=== PATIENT | male | born 1950 | race Caucasian/White ===

== ENCOUNTER 2019-07-09 14:00 | Outpatient (CLI) | payer MEDICARE, BC, SELFPAY ==
--- NOTE | 2019-07-09 14:15 | US_ITS ---
WS: [id number] Bilateral renal ultrasound, Clinical Data: urolithiasis Comparison: None. Findings: The right kidney measures 11.6 cm x 5.1 cm x 5.5 cm and the left kidney is 12.2 cm x 6.2 cm x 5.8 cm. There is a right cortical cyst measuring 1.13 x 1.62 x 1.79 cm. and a second one measuring 1.04 x 1. 39 x 1.58 cm. No other cysts are seen. There are small central nonobstructing left renal calculi. The abdominal aorta and inferior vena cava show no vascular abnormalities. The bladder was scanned and was not remarkable. The prostate is enlarged and measures 3.71 x 4.48 x 4 .61 cm. US/US renal BI* [id number] Impression: 1. Nonobstructing central left renal calculi. 2. 2 right renal cysts. 3. Enlarged prostate.
--- NOTE | 2019-07-09 15:15 | XR_ITS ---
WS: [id number] KUB, 07/09/2019 Clinical Data: Urolithiasis Comparison: KUB, 04/18/2019 Findings: There are several calcifications overlying the left kidney, the largest of which is 1.57 cm in the ce ntral portion of the kidney. A triangular calcification measuring 0.6 cm in the region of the right u reteropelvic junction. There are vascular calcifications in the true pelvis. There is a dextroscolios is with degenerative change. The bladder is partly full. There are clips in the right upper quadrant from a cholecystectomy. XR/XR KUB [id number] Impression: 1. Multiple left renal calcifications, the largest of which is 1.57 cm. 2. Triangular calcification in region of right ureteropelvic junction.
== END 2019-07-09 14:01 | disposition home or self-care (01) ==
LOC: US 14:00
PROVIDERS: Family Provider Registered Nurse; PCP Registered Nurse; Visit Provider Urology
DX: N20.9 Urinary calculus, unspecified (principal); N28.89 Other specified disorders of kidney and ureter; Q61.02 Congenital multiple renal cysts; N40.0 Benign prostatic hyperplasia without lower urinary tract symptoms
CPT/HCPCS: 74018; 76770

== ENCOUNTER 2019-07-22 07:36 | Outpatient (CLI) | payer MEDICARE, BC, SELFPAY ==
--- NOTE | 2019-07-22 07:48 | USCV_ITS ---
Ge Dudley Age: 69 Gender: M : 1950 Exam Date: 07/22/2019 07:58 Ordering Phys: Rosita Muro MULTICULTURAL MANAGER Technologist: Misael Lay Exam Location: [facility] [place] Indication: LT LEG PAIN Risk Factors: Previous Vascular Surgery: RIGHT LEFT Waveform Velocity (cm/s) Velocity (cm/s) Waveform Iliac Prox 70.4 Triphasic Iliac Mid 70.4 Triphasic Iliac Distal 63.9 Triphasic FORMING TUBE SELECTOR 60.4 Triphasic SFA Prox 69.7 Triphasic SFA Mid 51.8 Triphasic SFA Dist 58.0 Triphasic POP 27.8 Triphasic FX ARTIST 35.5 Triphasic DPA 32.1 Biphasic ESTHER 1.1 FINDINGS Normal resting ESTHER of 1.1 on the left side CONCLUSIONS No evidence of any significant arterial obstruction, based on the above findings. Dr German Rucker MD [facility] (Electronically Signed) Final Date: 22 July 2019 08:56 S
== END 2019-07-22 07:37 | disposition home or self-care (01) ==
LOC: RAD 07:39
PROVIDERS: Family Provider Registered Nurse; PCP Registered Nurse; Visit Provider Registered Nurse
DX: M79.605 Pain in left leg (principal); R20.0 Anesthesia of skin; R20.2 Paresthesia of skin; I72.3 Aneurysm of iliac artery
CPT/HCPCS: 93926

== ENCOUNTER 2019-11-20 23:10 | Emergency (ER) | payer MEDICARE, BC, SELFPAY ==
[2019-11-20 23:12] VITALS: BP 98/63; PULSE 57; RESP 18; TEMP 36.4; O2SAT 95; BMI 31.3
--- NOTE | 2019-11-20 23:51 | ED_ITS ---
HPI - Epistaxis General: Chief complaint: Epistaxis Stated complaint: nose bleed Time Seen by Provider: 11/20/19 23:47 Source: patient History of Present Illness: HPI Narrative: 69-year-old male states he has had a nosebleed throughout the day that is been intermittent in nature. Bleeding is currently stopped. Is through his left nostril. He is on Coumadin. He denies any worsening or improving factors. He denies any lightheadedness. Denies any injuries. complaint: epistaxis Location: left nostril Onset (ago): hour(s) Duration: intermittent Context: warfarin use Associated symptoms: Deny fever(s), headache(s) or vomiting Review of Systems Const: Denies: fever(s), chills, body aches or change in appetite Eyes: Denies: blurry vision or eye discomfort ENMT: Reports: epistaxis Card: Denies: chest pain Resp: Denies: dyspnea GI: Denies: abdominal pain, nausea, vomiting or diarrhea : Denies: dysuria Musc: Denies: neck pain or back pain Skin/Breast: Denies: rash Neuro: Denies: headache(s) Psych: Denies: depression Ashwin/Lymph: Denies: easy bruising All/Imm: Denies: urticaria PFSH ED PFSH: Medical History (Updated 11/21/19 @ 00:41 by Jose Neal MD) Atrial fibrillation Chest pain Elevated PSA Erectile dysfunction due to diseases classified elsewhere Gout Hepatitis C HTN (hypertension) Microscopic hematuria Sleep apnea Smoker Urolithiasis Surgical History S/P cholecystectomy Family History Father , Age 76 Congestive heart failure Social History Smoking and tobacco status: current every day smoker Alcohol intake: current Alcohol intake frequency: few times a week Marital status: Current occupational status: retired Physical Exam Const: COMMON NORMALS: no acute distress, patient oriented x3 and healthy appearing HENMT: COMMON NORMALS: normocephalic and atraumatic HEAD & SCALP: normocephalic and atraumatic OTHER: Dried blood in left nare with no active bleeding Eye: COMMON NORMALS: Equal, round and reactive pupils present and EOMs intact bilaterally PUPIL: Yes Equal, round and reactive pupils present Neck/C-Spine: COMMON NORMALS: full ROM and supple Chest: COMMONS NORMALS: normal inspection of the chest and normal palpation of entire chest wall Resp: COMMON NORMALS: normal respiratory effort, No retractions, No use of accessory muscles and clear to auscultation bilaterally AUSCULTATION: clear to auscultation bilaterally Cardio: COMMON NORMALS: regular rate, regular rhythm and No murmurs present (Cardio) RATE: regular rate RHYTHM: regular rhythm GI: COMMON NORMALS: Normal to inspection, nondistended, normoactive bowel sounds present, Soft to palpation, non-tender and no masses PALPATION: Yes Soft to palpation Extremity: COMMON NORMALS: normal to inspection and full ROM Neuro: COMMON NORMALS: patient oriented x3, moves all extremities and no focal motor deficits Psych: COMMON NORMALS: mental status grossly normal, Normal thought process present and cooperative THOUGHT PROCESS: Normal thought process present Skin: COMMON NORMALS: no rashes or lesions noted and no wounds GENERAL SKIN EXAM: no rashes or lesions noted Course Vital Signs: Vital signs: Vital Signs Temperature 97.6 F 11/20/19 23:12 Pulse Rate 78 11/21/19 02:37 Respiratory Rate 18 11/21/19 02:37 Blood Pressure 109/69 11/21/19 02:37 Pulse Oximetry 94 11/21/19 02:37 MDM - Epistaxis MDM Narrative: Medical decision making narrative: Patient presents here with epistaxis that is since resolved. Patient was observed here and had no further nosebleeds. Patient was hypotensive he had taken his blood pressure just prior to arrival need states blood pressure was low before he took his blood pressure medicine. This is likely because of hypotension and his blood pressures improved at discharge. Hemoglobin and lactate are normal. I informed patient he needs to monitor his blood pressure closely before taking his meds. Patient is to follow-up with ENT. He is return if worsening. Lab Data: Labs: Lab Results 11/20/19 11/20/19 11/21/19 Range/Units 23:37 23:37 01:54 WBC 11.0 H (4.0-10.0) 10^3/ uL RBC 3.88 L (4.1-5.3) 10^6/u L Hgb 11.8 (11.7-16.6) g/dL Hct 37.5 L (42.0-52.0) % MCV 96.6 H (80-94) fL MCH 30.4 (28.0-34.0) pg MCHC 31.5 (30.0-36.0) g/dL RDW 13.5 (12.1-15.1) % Plt Count 239 (130-400) 10^3/c mm MPV 11.3 H (7.4-10.4) fL Neut % (Auto) 65.2 % Lymph % (Auto) 20.1 % Juab % (Auto) 11.9 % Eos % (Auto) 1.6 % Baso % (Auto) 0.5 % Neut # (Auto) 7.2 (1.8-7.7) 10^3/u L Lymph # (Auto) 2.2 (0.8-4.8) 10^3/u L [place] # (Auto) 1.3 H (0.2-0.9) 10^3/u L Eos # (Auto) 0.2 (0.0-0.8) 10^3/u L Baso # (Auto) 0.1 (0.0-0.1) 10^3/u L Nucleated RBC % (a uto) 0 % Nucleated RBCs # 0.0 /100WBC PT 27.10 H (10.5-13.3) SECO NDS INR 2.41 H (0.8-1.2) Sodium 137 (136-145) mmol/L Potassium 4.3 (3.5-5.1) mmol/L Chloride 105 (98-107) mmol/L Carbon Dioxide 24 (22-29) mmol/L Anion Gap 12.3 (5-19) BUN 31 H (8-23) mg/dL Creatinine 1.5 H (0.7-1.2) mg/dL GFR Calculation 46.3 L (90-130) mL/min Glucose 107 (65-115) mg/dL Calculated Osmolal ity 282 L (285-295) mOsm/k g Lactate (0.5-2.2) mmol/L Calcium 10.1 (8.5-10.5) mg/dL 11/21/19 11/21/19 Range/Units 01:54 01:54 WBC (4.0-10.0) 10^3/ uL RBC (4.1-5.3) 10^6/u L Hgb 10.0 L (11.7-16.6) g/dL Hct 32.2 L (42.0-52.0) % MCV (80-94) fL MCH (28.0-34.0) pg MCHC (30.0-36.0) g/dL RDW (12.1-15.1) % Plt Count (130-400) 10^3/c mm MPV (7.4-10.4) fL Neut % (Auto) % Lymph % (Auto) % Juab % (Auto) % Eos % (Auto) % Baso % (Auto) % Neut # (Auto) (1.8-7.7) 10^3/u L Lymph # (Auto) (0.8-4.8) 10^3/u L Juab # (Auto) (0.2-0.9) 10^3/u L Eos # (Auto) (0.0-0.8) 10^3/u L Baso # (Auto) (0.0-0.1) 10^3/u L Nucleated RBC % (a uto) % Nucleated RBCs # /100WBC PT (10.5-13.3) SECO NDS INR (0.8-1.2) Sodium (136-145) mmol/L Potassium (3.5-5.1) mmol/L Chloride (98-107) mmol/L Carbon Dioxide (22-29) mmol/L Anion Gap (5-19) BUN (8-23) mg/dL Creatinine (0.7-1.2) mg/dL GFR Calculation (90-130) mL/min Glucose (65-115) mg/dL Calculated Osmolal ity (285-295) mOsm/k g Lactate 0.7 (0.5-2.2) mmol/L Calcium (8.5-10.5) mg/dL Discharge Plan Discharge Patient Disposition: Home, Self-Care Clinical Impression: Epistaxis Condition: Stable Prescriptions: No Action aspirin [Aspir-81] 81 mg tablet,delayed release (DR/EC) 81 mg PO DAILY RF: 0 colchicine 0.6 mg tablet 0.6 mg PO DAILY RF: 0 warfarin 10 mg tablet 5 mg PO DAILY RF: 0 lisinopril 40 mg tablet 40 mg PO DAILY RF: 0 metoprolol tartrate 25 mg tablet 25 mg PO BID RF: 0 sildenafil 100 mg tablet 100 mg PO DAILY PRN (Reason: sexual activity) Qty: 20 RF: 12 amlodipine 10 mg tablet See Rx Instructions .ROUTE .COMPLEX Qty: 30 RF: 5 Discharge Orders: Discharge Order (Routine); Ordered 11/21/19 Ordered By: Jose Neal Referrals: Zia Vega MD [Physician] - 1-3 days Rosita Muro FNP [Primary Care Provider] - Discharge Diet: Advance as tolerated Discharge Activity: Resume usual activity Patient Instructions: Epistaxis (ED) Discharge Date/Time: 11/21/19 02:35 Coding Level of Care Code ED Aircraft Launch And Recovery Technician for Radha Fwd Exam Comprehensive
[2019-11-20 23:57] LABS: INR 2.41 (0.8-1.2)
[2019-11-21] MEDS: oxymetazoline 0.05% Nasal Spray 15 mL 2 SPRAY NOSTRIL-B (00:05)
[2019-11-21 00:06] VITALS: BP 85/53; PULSE 50; RESP 18; O2SAT 90
[2019-11-21 00:19] LABS: Basophils # 0.1 10^3/uL (0.0-0.1); Basophils % 0.5 %; Eosinophils # 0.2 10^3/uL (0.0-0.8); Eosinophils % 1.6 %; Hematocrit 37.5 % (42.0-52.0); Hemoglobin 11.8 g/dL (11.7-16.6); Lymphocytes # 2.2 10^3/uL (0.8-4.8); Lymphocytes % 20.1 %; Mean Corpuscular HGB Conc 31.5 g/dL (30.0-36.0); Mean Corpuscular Hemoglobin 30.4 pg (28.0-34.0); Mean Corpuscular Volume 96.6 fL (80-94); Mean Platelet Volume 11.3 fL (7.4-10.4); Monocytes # 1.3 10^3/uL (0.2-0.9); Monocytes % 11.9 %; Neutrophils # 7.2 10^3/uL (1.8-7.7); Neutrophils % 65.2 %; Nucleated Red Blood Cells % 0 %; Platelet Count 239 10^3/cmm (130-400); Red Blood Count 3.88 10^6/uL (4.1-5.3); Red Cell Distribution Width 13.5 % (12.1-15.1)
[2019-11-21] MEDS: sodium chloride 0.9% 1,000 ML 999 ML IV (01:08)
[2019-11-21 01:10] VITALS: BP 68/31; PULSE 50; RESP 18; O2SAT 95
[2019-11-21 01:37] VITALS: BP 98/61; O2SAT 94
[2019-11-21 02:03] VITALS: BP 98/57; PULSE 68; O2SAT 96
[2019-11-21 02:10] LABS: Hematocrit 32.2 % (42.0-52.0)
[2019-11-21 02:21] LABS: Anion Gap 12.3 (5-19); Blood Urea Nitrogen 31 mg/dL (8-23); Calcium 10.1 mg/dL (8.5-10.5); Carbon Dioxide 24 mmol/L (22-29); Chloride 105 mmol/L (98-107); Glomerular Filtration Rate 46.3 mL/min (90-130); Glucose 107 mg/dL (65-115); Lactate (Lactic Acid level) 0.7 mmol/L (0.5-2.2); Osmolality Calculated 282 mOsm/kg (285-295); Potassium 4.3 mmol/L (3.5-5.1); Sodium 137 mmol/L (136-145)
[2019-11-21 02:37] VITALS: BP 109/69; PULSE 78; RESP 18; O2SAT 94
--- NOTE | 2019-11-21 13:21 | DCPLANNER ---
dental manager had message to schedule a follow up appointment for patient with Dr. Vega. dental manager faxed patients records to the office of Dr. Vega. Clinic will call case management manager and patient with appointment information.
--- NOTE | 2019-11-27 15:19 | DCPLANNER ---
Patient did attend appointment scheduled for 11.26.[address] Vega.
== END 2019-11-21 02:35 | disposition home or self-care (01) ==
PROVIDERS: Emergency Provider Emergency Medicine; PCP Registered Nurse
DX: R04.0 Epistaxis (principal); Z79.82 Long term (current) use of aspirin; I48.91 Unspecified atrial fibrillation; I10 Essential (primary) hypertension; Z86.19 Personal history of other infectious and parasitic diseases; F17.210 Nicotine dependence, cigarettes, uncomplicated
CPT/HCPCS: 12345; 36415; 80048; 83605; 85014; 85018; 85025; 85610; 96360; 96361; 99283; J7030

== ENCOUNTER → 2020-04-15 14:39 | Outpatient (BNVA) | payer MEDICARE, BC, SELFPAY | PROVIDERS: PCP Registered Nurse; Referring Provider Registered Nurse; Visit Provider Internal Medicine | DX: E21.3 Hyperparathyroidism, unspecified (principal); I10 Essential (primary) hypertension; I48.91 Unspecified atrial fibrillation; N20.2 Calculus of kidney with calculus of ureter | CPT/HCPCS: 99204 ==

== ENCOUNTER 2020-05-18 12:23 | Outpatient (CLI) | payer MEDICARE, BC, SELFPAY ==
--- NOTE | 2020-05-18 12:34 | MR_ITS ---
WS: [id number] MRI LUMBAR SPINE NONCONTRAST HISTORY: CHRONIC bilateral LBP SCIATICA. COMPARISON: CT 01/16/2019 TECHNIQUE: Sagittal and axial multisequence imaging is submitted. Survey imaging of the entire spine demonstrates significant degenerative changes in the cervical spin e with stenosis at the C4 level. Increased T2 signal within the central thoracic cord at the T7 level extends over length of 12 mm. RIGHT convex scoliosis lumbar spine. No marrow edema or acute fracture. Disc spaces are narrowed with osteophytes and disc bulging throughout the lumbar spine. Conus terminates normally at L1-2 disc level. T12-L1: Diffuse annular disc bulging and facet and ligamentum flavum arthritis. RIGHT subarticular di sc protrusion with mild lobulation causing very mild encroachment on the RIGHT thecal sac. L1-L2: Diffuse asymmetric disc bulging and osteophytic ridging. Moderate ligamentum flavum disease an d facet arthritis. Significant disc osteophyte complex extending into the LEFT lateral recess and for amen. Severe LEFT foraminal stenosis and moderate on the RIGHT. L2-L3: Diffuse annular disc bulging with facet and ligamentum flavum hypertrophy. Moderate bilateral foraminal stenosis. Small disc protrusion into the LEFT lateral recess. L3-L4: Diffuse annular disc bulging with facet and ligamentum flavum arthritis. Moderate central and bilateral foraminal stenosis. L4-L5: Diffuse annular disc bulging and osteophytic ridging. Mild facet and ligamentum flavum hypertr ophy. LEFT inferior lateral recess disc protrusion contacting the L5 nerve root. Moderate bilateral f oraminal stenosis, RIGHT greater than LEFT. Mild central stenosis. L5-S1: Mild annular disc bulging with facet and ligamentum flavum arthritis. Severe RIGHT foraminal s tenosis due to combination of disc disease and facet disease. Complete effacement of fat. Moderate na rrowing on the LEFT. Moderate to severe LEFT hydrocele nephrosis. Ureter is dilated into the pelvis measuring up to 9 mm. This has been previously described on 01/16/2019 due to stone in the distal ureter. RIGHT renal cysts. Ectatic abdominal aorta. MR/MR lumbar spine wo con* [id number] IMPRESSION: 1. Moderate to severe multifocal areas of foraminal and central stenosis as ab ove. 2. Severe RIGHT foraminal stenosis at L5-S1 with moderate on the LEFT. 3. Severe LEFT foraminal stenosis and moderate on the RIGHT at L1-2. 4. Moderate bilateral foraminal stenosis at L2-3 with a disc protrusion extend ing into the LEFT lateral recess. 5. Moderate central and bilateral foraminal stenosis at L3-4. 6. Mild central stenosis with moderate bilateral foraminal stenosis at L4-5. 7. Chronic LEFT hydroureteronephrosis. 8. 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 Recommend follow-up thoracic MRI with and without contrast for evaluation.
--- NOTE | 2020-05-18 12:34 | MR_ITS ---
WS: [id number] MRI CERVICAL SPINE HISTORY: CHRONIC NECK PAIN COMPARISON: No similar studies. Prior cervical spine CT 05/09/2016. Mild curvature the cervical spine. Advanced degenerative changes throughout the cervical vertebrae. D isc space narrowing with osteophytes and disc disease. Marrow edema and C4 and C5. No fractures. Signal within the cervical cord is normal. Visualized posterior fossa is unremarkable. Craniocervical junction, C1 and C2 relationship, odontoid process and soft tissues are normal. C2-C3: Mild osteophytic ridging no stenosis. C3-C4: Moderate annular disc bulging and osteophytic ridging. Effacement of the ventral CSF. Mild seven tral with moderate RIGHT and mild LEFT foraminal stenosis due to disc osteophyte disease. C4-C5: Diffuse annular disc bulging and osteophytic ridging. Moderate central and RIGHT foraminal noah nosis. Mild on the LEFT. C5-C6: Diffuse annular disc bulging and osteophytic ridging. Severe LEFT foraminal stenosis. C6-C7: Diffuse annular disc bulging and osteophytic ridging. Extremity nerve roots are being displace d posteriorly on the LEFT. Moderate central with severe LEFT foraminal and moderate RIGHT foraminal s tenosis. C7-T1: Mild disc bulging. No stenosis. Paraspinal soft tissue are normal. MR/MR cervical spin wo con* [id number] IMPRESSION: 1. Severe degenerative spondylitic changes throughout the cervical spine. Adva nced osteophytosis and disc space narrowing and multilevel stenoses. 2. Severe LEFT foraminal stenosis at C5-6. 3. Moderate central and RIGHT foraminal stenosis at C4-5. 4. Moderate central with severe LEFT and moderate RIGHT foraminal stenosis at C6-7. 5. Moderate RIGHT and mild LEFT foraminal stenosis at C3-4.
== END 2020-05-18 12:24 | disposition home or self-care (01) ==
LOC: RADSHAW 12:26
PROVIDERS: PCP Registered Nurse; Visit Provider Registered Nurse
DX: M54.42 Lumbago with sciatica, left side (principal); M54.41 Lumbago with sciatica, right side; R93.7 Abnormal findings on diagnostic imaging of other parts of musculoskeletal system; M47.26 Other spondylosis with radiculopathy, lumbar region; M48.061 Spinal stenosis, lumbar region without neurogenic claudication; M48.07 Spinal stenosis, lumbosacral region; M51.26 Other intervertebral disc displacement, lumbar region; N13.30 Unspecified hydronephrosis; M48.02 Spinal stenosis, cervical region
CPT/HCPCS: 72141; 72148

== ENCOUNTER → 2020-06-19 08:25 | Outpatient (BNVA) | payer MEDICARE, BC, SELFPAY | PROVIDERS: PCP Registered Nurse; Visit Provider Internal Medicine | DX: E21.3 Hyperparathyroidism, unspecified (principal); I10 Essential (primary) hypertension; I48.91 Unspecified atrial fibrillation; N20.2 Calculus of kidney with calculus of ureter | CPT/HCPCS: 99214 ==

== ENCOUNTER 2020-06-23 13:32 | Outpatient (CLI) | payer MEDICARE, BC, SELFPAY ==
--- NOTE | 2020-06-23 16:15 | XR_ITS ---
WS: [id number] DEXA (DUAL ENERGY X-RAY ABSORPTIOMETRY) Bone mineral density was performed using a HuoBi machine. HISTORY: age above 69,hyperparathyroidism,r/p osteoporosis COMPARISON: None available. Lumbar spine BMD (L1-L4): 1.416 g/cm2 T score: 1.6 Z score: 1.7 Total hip BMD: Left: 0.881 g/cm2. T score: -1.5 Z score: -1.1 Right: 0.954 g/cm2. T score: -1.0 Z score: -0.6 10 year probability of a major osteoporotic fracture is 6%. XR/XR DEXA axial skeleton* [id number] IMPRESSION: OSTEOPENIA. Patient is at increased risk for fracture.
== END 2020-06-23 13:33 | disposition home or self-care (01) ==
LOC: RADWPI 13:36
PROVIDERS: PCP Registered Nurse; Visit Provider Internal Medicine
DX: E21.3 Hyperparathyroidism, unspecified (principal); M85.80 Other specified disorders of bone density and structure, unspecified site
CPT/HCPCS: 77080

== ENCOUNTER 2020-06-26 08:45 | Outpatient (CLI) | payer MEDICARE, BC, SELFPAY ==
--- NOTE | 2020-06-26 08:54 | NM_ITS ---
WS: [id number] NUCLEAR MEDICINE PARATHYROID SESTAMIBI INDICATION: Hypercalcemia TECHNIQUE: 19.1 mCi technetium 99m FINDINGS: Normal right thyroid lobe uptake. Cold defect in the left lower thyroid lobe. Normal thyroi d washout on the delayed images. No retained radiotracer to suggest parathyroid adenoma. NM/NM parathyroid [id number] IMPRESSION: 1. No evidence of parathyroid adenoma. 2. Photopenic defect in the left lower thyroid lobe. Recommend thyroid ultraso und to evaluate for thyroid nodule in this location.
== END 2020-06-26 08:46 | disposition home or self-care (01) ==
LOC: RAD 08:47
PROVIDERS: PCP Registered Nurse; Visit Provider Internal Medicine
DX: E21.3 Hyperparathyroidism, unspecified (principal)
CPT/HCPCS: 78070; A9500

== ENCOUNTER 2020-06-29 07:52 | Outpatient (CLI) | payer MEDICARE, BC, SELFPAY ==
--- NOTE | 2020-06-29 08:00 | XRR_ITS ---
PROCEDURE INFORMATION: Exam: XR Abdomen, 1 View Exam date and time: 06/29/2020 8:03 AM Age: 70 years old Clinical indication: Condition or disease; Other: Urolithiasis; Prior surgery; Surgery type: Gb TECHNIQUE: Imaging protocol: XR of the abdomen. Views: Frontal supine view of the abdomen. 1 View. COMPARISON: CA XR KUB [id number] 07/09/2019 2:12 PM Findings: Degenerative change of the spine. Surgical clips right upper quadrant. Scattered bowel gas. Scattered calcifications in the pelvis probably related to vascular origin and phleboliths. Similar appearance of irregular calcification overlying the area of upper medial margin of right kidney. There are similar prominent sized and smaller calcifications which overlie the left kidney. Probable subtle calcifications within the lower right kidney are partially obscured by colonic fecal debris. Scattered bowel gas and moderate colonic fecal debris without extreme gaseous distension. XR/XR KUB [id number] IMPRESSION: Persistent suspected bilateral intrarenal calculi largest on the left.
== END 2020-06-29 07:53 | disposition home or self-care (01) ==
LOC: RAD 08:00
PROVIDERS: PCP Registered Nurse; Visit Provider Urology
DX: N20.9 Urinary calculus, unspecified (principal); R97.20 Elevated prostate specific antigen [PSA]
CPT/HCPCS: 74018; 81003; 84153; 87086

== ENCOUNTER → 2020-07-02 08:35 | Outpatient (BNVA) | payer MEDICARE, BC, SELFPAY | PROVIDERS: PCP Registered Nurse; Visit Provider Surgery | DX: Z20.828 Contact with and (suspected) exposure to other viral communicable diseases (principal); Z86.010 Personal history of colon polyps | CPT/HCPCS: 87635 ==

== ENCOUNTER → 2020-07-31 11:07 | Outpatient (BNVA) | payer MEDICARE, BC, SELFPAY | PROVIDERS: PCP Registered Nurse; Visit Provider Urology | DX: N30.01 Acute cystitis with hematuria (principal); C67.9 Malignant neoplasm of bladder, unspecified; N20.2 Calculus of kidney with calculus of ureter; N40.1 Benign prostatic hyperplasia with lower urinary tract symptoms | CPT/HCPCS: 81003; 82365; 88300 ==

== ENCOUNTER → 2020-08-12 09:38 | Outpatient (BNVA) | payer MEDICARE, BC, SELFPAY | PROVIDERS: PCP Registered Nurse; Visit Provider Internal Medicine | DX: E04.1 Nontoxic single thyroid nodule (principal); E21.3 Hyperparathyroidism, unspecified; I10 Essential (primary) hypertension; I48.91 Unspecified atrial fibrillation; N20.2 Calculus of kidney with calculus of ureter | CPT/HCPCS: 99215 ==

== ENCOUNTER → 2020-08-21 13:58 | Outpatient (BNVA) | payer MEDICARE, BC, SELFPAY | PROVIDERS: PCP Registered Nurse; Visit Provider Surgery | DX: Z86.010 Personal history of colon polyps (principal); Z03.818 Encounter for observation for suspected exposure to other biological agents ruled out; Z20.822 Contact with and (suspected) exposure to COVID-19 | CPT/HCPCS: 87635 ==

== ENCOUNTER 2020-08-26 07:35 | Day surgery (SDC) | payer MEDICARE, BC, SELFPAY ==
[2020-08-24 13:13] VITALS: BMI 31.3
--- NOTE | 2020-08-26 07:47 | ANES.PREANE2 ---
Pre-Anesthetic Assessment Pre-Anesthetic Assessment: Height/Weight: Height 1.7 m Weight 90.718 kg Preop Diagnosis: blood in stool Proposed Procedure: Operation Date: 08/26/20 09:15 Proposed Procedures p Colonoscopy 29054 z86.010(Not Applicable) - Jaren Kumar MD Familial anesthetic complications: none Was Beta Rita taken within 24 hours: Yes Was Clonidine taken within 24 hours: N/A Last intake: > 8 hrs Social: Social History: Tobacco Exam: Pre-Anes Outpt Exam: alert, oriented x 3, clear to auscultation bilaterally and regular rate & rhythm Airway: Cervical ROM: WNL MP: 4 Dentition: Chipped (broken off, in front) Additional comments: full mari Pulmonary: Pulmonary: Sleep apnea CV/HEM: CV/HEM: Afib and HTN Anesthetic Plan: ASA status: 3 Anesthesia: MAC Risk of > 500 ml blood loss (7ml/kg in children): No PFSH Anesthesia PFSH: Medical History Acute cystitis with hematuria Asymptomatic microscopic hematuria Atrial fibrillation BPH loc w urin obs/LUTS BPH w/o urinary obs/LUTS Chest pain Elevated PSA Erectile dysfunction due to diseases classified elsewhere Gout Gross hematuria Hepatitis C HTN (hypertension) Sleep apnea Smoker Urolithiasis Surgical History S/P cholecystectomy S/P ureteral stent placement Status post laser lithotripsy of ureteral calculus Family History Father , Age 76 Congestive heart failure Mother Osteoporosis Social History Smoking and tobacco status: current every day smoker Alcohol intake: current Alcohol intake frequency: few times a week Marital status: Current occupational status: retired Data Anesthesia Cardiac Studies: No Data to Display
[2020-08-26 08:20] VITALS: BP 154/102; PULSE 58; RESP 18; TEMP 36.2; O2SAT 97
[2020-08-26] MEDS: sodium chloride 0.9% 1,000 ML 30 ML IV (08:30)
--- NOTE | 2020-08-26 09:23 | W.PM.OPSFHP ---
Same Day Surgery H&P Indication for Procedure/HPI DATE OF PROCEDURE: August 26, 2020 CHIEF COMPLAINT/INDICATIONFOR SURGICAL PROCEDURE: History of colon polyps PREOP DIAGNOSIS: History of colon polyps PLANNED PROCEDRUE: Operation Date: 08/26/20 09:15 Proposed Procedures p Colonoscopy 14226 z86.010(Not Applicable) - Jaren Kumar MD History of present illness: This is a pleasant 70 years old gentleman gives history of colon polyps as he did have a previous colonoscopy at the [facility] back in 2017. Patient was referred to me for surveillance colonoscopy as he denies bleeding per rectum or history of colon cancer also no history of weight loss. Interim history 08/26/2020 ROS All systems have been reviewed negative except as per the above or per problem list. Medications/Allergies* Home Medications Medication Instructions Recorded Confirmed Type lisinopril 40 mg tablet 40 mg PO DAILY 12/09/19 08/26/20 History aspirin 81 mg tablet,delayed 81 mg PO DAILY 04/15/20 08/26/20 History release prednisone 10 mg tablet 10 mg PO .PRN tab 04/15/20 08/26/20 History warfarin 1 mg tablet 10 mg PO DAILY tab 06/19/20 08/24/20 History hydrochlorothiazide 25 mg tablet 12.5 mg PO DAILY PRN tab 07/31/20 08/26/20 History metoprolol tartrate 25 mg tablet 25 mg PO DAILY tab 08/12/20 08/26/20 History Allergies/Adverse Reactions Allergy/AdvReac Type Severity Reaction Status Date / Time No Known Allergies Allergy Verified 08/26/20 09:26 Current Medications: Generic Name Dose Route Start Last Admin Trade Name Freq PRN Reason Stop Dose Admin Sodium Chloride 1,000 mls @ 30 mls/hr 08/26/20 08:30 08/26/20 08:30 Sodium Chloride 0.9% IV 30 mls/hr .Q24H CLARENCE Administration Pertinent History/Comorbid Conditions* Medical History (Updated 08/12/20 @ 11:15 by Uday Varela MD) Acute cystitis with hematuria Asymptomatic microscopic hematuria Atrial fibrillation BPH loc w urin obs/LUTS BPH w/o urinary obs/LUTS Chest pain Elevated PSA Erectile dysfunction due to diseases classified elsewhere Gout Gross hematuria Hepatitis C HTN (hypertension) Sleep apnea Smoker Urolithiasis Surgical History (Updated 06/29/20 @ 09:11 by Aiden Mercado MD) S/P cholecystectomy S/P ureteral stent placement Status post laser lithotripsy of ureteral calculus Family History (Updated 06/19/20 @ 08:44 by Wojciech Benito LPN) Father, Age 76 Mother Osteoporosis Mother Congestive heart failure Father Social History Smoking and tobacco status: current every day smoker Alcohol intake: current Alcohol intake frequency: few times a week Marital status: Current occupational status: retired Pertinent Exam Findings oriented x 3, clear to auscultation bilaterally, regular rate & rhythm and procedure specific exam findings (Abdominal examination nontender nondistended soft) Recommendations Surgery/Procedure today (Colonoscopy post biopsy and possible polypectomy for surveillance purposes) Other Plans: Plan of care; After thorough history and physical examination and reviewing the chart, plan to perform surveillance colonoscopy. I discussed with the patient in details the risks,benefits,alternatives and indications.The risk of aspiration, bleeding, soft tissue injury, perforation of the colon and other potential concomitant complications were explained to the patient in details,also the potential need for Laproscoy/Laparotomy to repair any related complications including but not limited to colectomy and or Closotomy.The patient understood this well and did agree to proceed. Rationale was carefully and clearly discussed with the patient.Appropriate informed consent have been reviewed and signed All questions have been answered and all concerns have been addressed to patient's satisfaction. Verbal and written Instructions were given to the patient for colonoscopy prep Coding Level of Care Code Acute Pharmacologist for Radha Jensen
[2020-08-26 10:56] VITALS: BP 116/69; PULSE 62; RESP 16; TEMP 36.7; O2SAT 97
--- NOTE | 2020-08-26 10:57 | ANE.PACU2 ---
Inpatient post-anesthesia follow up: Airway intact: Yes Vital signs: Temperature 97.2 F Pulse Rate 58 Respiratory Rate 18 Blood Pressure 154/102 Pulse Oximetry 97 Oxygen Delivery Me thod Room Air Oxygen Flow Rate Fraction of Inspir ed Oxygen Hydration adequate: Yes Nausea and vomiting: No Pain level: 1 Mental status: Baseline
[2020-08-26 11:10] VITALS: BP 112/81; PULSE 61; RESP 16; O2SAT 97
== END 2020-08-26 11:39 | disposition home or self-care (01) ==
PROVIDERS: PCP Registered Nurse; Visit Provider Surgery
PROC: 0DJD8ZZ Inspection of Lower Intestinal Tract, Via Natural or Artificial Opening Endoscopic (ICD-10-PCS; CPT 45378; principal; 2020-08-26 09:15)
DX: K57.30 Diverticulosis of large intestine without perforation or abscess without bleeding (principal); Z86.010 Personal history of colon polyps; Z79.82 Long term (current) use of aspirin; Z79.52 Long term (current) use of systemic steroids; Z79.01 Long term (current) use of anticoagulants; I48.91 Unspecified atrial fibrillation; N40.1 Benign prostatic hyperplasia with lower urinary tract symptoms; N13.8 Other obstructive and reflux uropathy; I10 Essential (primary) hypertension; G47.30 Sleep apnea, unspecified; F17.210 Nicotine dependence, cigarettes, uncomplicated
CPT/HCPCS: 45378; 96360; 96361; J2704; J7030

== ENCOUNTER 2020-09-01 13:53 | Outpatient (CLI) | payer MEDICARE, BC, SELFPAY ==
--- NOTE | 2020-09-01 14:15 | US_ITS ---
WS: [id number] ULTRASOUND THYROID TECHNIQUE: Ultrasound of the thyroid. CLINICAL INFORMATION: defect seen in the thyroid on sestamibi scan, eval for nodul COMPARISON: Parathyroid nuclear medicine study June 26, 2020 FINDINGS: Thyroid: Right and left thyroid lobes are normal in size and echotexture. No thyroid nodules are pres ent. No left-sided nodules to correspond to the nuclear medicine findings. Right thyroid lobe: 3.2 cm x 1.6 cm x 1.7 cm Left thyroid lobe: 2.4 cm x 1.5 cm x 1.2 cm. Isthmus: 0.3 mm. Cervical lymphadenopathy: None. US/US thyroid [id number] IMPRESSION: Normal thyroid ultrasound examination.
== END 2020-09-01 13:54 | disposition home or self-care (01) ==
LOC: US 13:54
PROVIDERS: PCP Registered Nurse; Visit Provider Internal Medicine
DX: E04.1 Nontoxic single thyroid nodule
CPT/HCPCS: 76536

== ENCOUNTER → 2021-01-26 14:41 | Outpatient (BNVA) | payer MEDICARE, BC, SELFPAY | PROVIDERS: PCP Registered Nurse; Referring Provider Registered Nurse; Visit Provider Orthopaedic Surgery | DX: M54.9 Dorsalgia, unspecified (principal); M54.2 Cervicalgia; M47.816 Spondylosis without myelopathy or radiculopathy, lumbar region | CPT/HCPCS: 72050; 72110 ==

== ENCOUNTER → 2021-01-28 10:17 | Outpatient (BNVA) | payer MEDICARE, BC, SELFPAY | PROVIDERS: PCP Registered Nurse; Referring Provider Orthopaedic Surgery; Visit Provider Anesthesiology Pain Medicine | DX: Z02.89 Encounter for other administrative examinations (principal); M48.062 Spinal stenosis, lumbar region with neurogenic claudication; M50.90 Cervical disc disorder, unspecified, unspecified cervical region; F17.210 Nicotine dependence, cigarettes, uncomplicated | CPT/HCPCS: 99205 ==

== ENCOUNTER → 2021-01-29 12:10 | Outpatient (BNVA) | payer MEDICARE, BC, SELFPAY | PROVIDERS: PCP Registered Nurse; Visit Provider Anesthesiology Pain Medicine | DX: M54.16 Radiculopathy, lumbar region (principal); M48.062 Spinal stenosis, lumbar region with neurogenic claudication | CPT/HCPCS: 64483; 64484; J1040; J3490 ==

== ENCOUNTER → 2021-02-15 13:01 | Outpatient (BNVA) | payer MEDICARE, BC, SELFPAY | PROVIDERS: PCP Registered Nurse; Visit Provider Anesthesiology Pain Medicine | DX: G89.29 Other chronic pain (principal); M50.90 Cervical disc disorder, unspecified, unspecified cervical region; Z79.01 Long term (current) use of anticoagulants; F17.210 Nicotine dependence, cigarettes, uncomplicated | CPT/HCPCS: 62321; 85610; J1100 ==

== ENCOUNTER → 2021-02-16 08:10 | Outpatient (BNVA) | payer MEDICARE, BC, SELFPAY | PROVIDERS: PCP Registered Nurse; Visit Provider Anesthesiology Pain Medicine | DX: Z79.01 Long term (current) use of anticoagulants (principal); G89.29 Other chronic pain; M50.90 Cervical disc disorder, unspecified, unspecified cervical region; F17.210 Nicotine dependence, cigarettes, uncomplicated | CPT/HCPCS: 85610 ==

== ENCOUNTER → 2021-03-01 10:02 | Outpatient (BNVA) | payer MEDICARE, BC, SELFPAY | PROVIDERS: PCP Registered Nurse; Visit Provider Anesthesiology Pain Medicine | DX: M50.90 Cervical disc disorder, unspecified, unspecified cervical region (principal); M48.062 Spinal stenosis, lumbar region with neurogenic claudication; F17.210 Nicotine dependence, cigarettes, uncomplicated | CPT/HCPCS: 99214 ==

== ENCOUNTER → 2021-03-11 08:14 | Outpatient (BNVA) | payer MEDICARE, BC, SELFPAY | PROVIDERS: PCP Registered Nurse; Visit Provider Physician Assistant | DX: M50.90 Cervical disc disorder, unspecified, unspecified cervical region (principal) | CPT/HCPCS: 72050 ==

== ENCOUNTER → 2021-03-12 13:40 | Outpatient (BNVA) | payer MEDICARE, BC, SELFPAY | PROVIDERS: PCP Registered Nurse; Visit Provider Anesthesiology Pain Medicine | DX: M47.816 Spondylosis without myelopathy or radiculopathy, lumbar region (principal); M48.062 Spinal stenosis, lumbar region with neurogenic claudication | CPT/HCPCS: 64493; 64494; 64495; J3490 ==

== ENCOUNTER 2021-03-24 14:17 | Outpatient (CLI) | payer MEDICARE, BC, SELFPAY ==
--- NOTE | 2021-03-24 14:00 | XR_ITS ---
WS: [id number] Exam: XR KUB [id number] Date/Time of Exam: 03/24/2021 2:00 PM Reason For Exam: UROLITHIASIS Comparison 06/29/2020. There are several large calcification superimposing left kidney suggesting prominent renal stones. Nu merous small calcifications are also superimposing the right kidney and are also likely stones. No nicky wel obstruction or free air. No sign of organ enlargement. Multiple vascular calcifications in the pe lvis. Moderate degenerative change of the lumbar spine with mild dextroscoliosis. XR/XR KUB [id number] IMPRESSION: 1. Multiple calcifications superimpose both kidneys most likely renal calculi. 2. No acute abdominal process identified.
== END 2021-03-24 14:18 | disposition home or self-care (01) ==
LOC: RAD 14:20
PROVIDERS: PCP Registered Nurse; Visit Provider Urology
DX: N20.2 Calculus of kidney with calculus of ureter (principal); N30.01 Acute cystitis with hematuria
CPT/HCPCS: 74018; 81003; 87086

== ENCOUNTER → 2021-03-25 10:46 | Outpatient (BNVA) | payer MEDICARE, BC, SELFPAY | PROVIDERS: PCP Registered Nurse; Visit Provider Anesthesiology Pain Medicine | DX: M48.062 Spinal stenosis, lumbar region with neurogenic claudication (principal); M50.90 Cervical disc disorder, unspecified, unspecified cervical region; M79.604 Pain in right leg; M79.605 Pain in left leg | CPT/HCPCS: 99214 ==

== ENCOUNTER → 2021-04-08 14:23 | Outpatient (BNVA) | payer MEDICARE, BC, SELFPAY | PROVIDERS: PCP Registered Nurse; Visit Provider Anesthesiology Pain Medicine | DX: M47.816 Spondylosis without myelopathy or radiculopathy, lumbar region (principal); M48.062 Spinal stenosis, lumbar region with neurogenic claudication; M54.16 Radiculopathy, lumbar region | CPT/HCPCS: 64635; 64636; J1030 ==

== ENCOUNTER 2021-07-16 10:50 | Emergency (ER) | payer MEDICARE, BC, SELFPAY ==
--- NOTE | 2021-07-16 11:04 | XR_ITS ---
WS: [id number] Right knee, 3 views, 07/16/2021 Clinical Data: fall Comparison: Right knee, 05/09/2016. Findings: No fractures or dislocations are seen. Chondral cartilage calcification is noted in the medial and la teral joint compartments. There is a large prepatellar and suprapatellar bursal swelling. Vascular ca lcification is present. The patella is intact. The soft tissues are unremarkable. XR/XR knee RT 3V* [id number] Impression: 1. Negative for fracture or dislocation. 2. Soft tissue swelling anterior to the patella and in the suprapatellar bursa. 3. Chondral calcification in the medial lateral joint compartments. Kellgren-Irineo Classification: grade 1 (doubtful): doubtful joint space narr owing and possible osteophytic lipping
[2021-07-16 11:14] VITALS: BP 121/75; PULSE 74; RESP 20; TEMP 36.7; O2SAT 99; BMI 32.3
--- NOTE | 2021-07-16 11:24 | ED_ITS ---
HPI - Extremity Problem General: Chief complaint: Extremity Injury, Lower Stated complaint: Right knee pain; fall Time Seen by Provider: 07/16/21 11:10 History of Present Illness: Patient presents with right knee pain from a fall that was sustained on July 04. Complaint: joint pain Onset (ago): week(s) Location: lower extremity Associated symptoms: Deny chest pain, fever(s) or rash Review of Systems Narrative: Patient is on Coumadin. Const: Denies: fever(s), chills or body aches Eyes: Denies: eye discomfort ENMT: Denies: throat pain Card: Denies: chest pain Resp: Denies: dyspnea GI: Denies: abdominal pain, nausea or vomiting Musc: Reports: joint pain (Right knee, occurred from a fall on July 04. Hurts to bear weight.) Skin/Breast: Denies: rash Neuro: Denies: headache(s) Psych: Denies: depression or suicidal ideation PFSH ED PFSH: Medical History Acute cystitis with hematuria Asymptomatic microscopic hematuria Atrial fibrillation BPH loc w urin obs/LUTS BPH w/o urinary obs/LUTS Chest pain Diverticulosis Elevated PSA Erectile dysfunction due to diseases classified elsewhere Gout Gross hematuria Hepatitis C HTN (hypertension) Sleep apnea Smoker Urolithiasis Surgical History S/P cholecystectomy S/P ureteral stent placement Status post laser lithotripsy of ureteral calculus Family History Father , Age 76 Congestive heart failure Mother Osteoporosis Social History Alcohol intake: current Alcohol intake frequency: few times a week Marital status: Current occupational status: retired History of recent travel: No Physical Exam Const: COMMON NORMALS: no acute distress, patient oriented x3 and alert HENMT: COMMON NORMALS: normocephalic HEAD & SCALP: normocephalic Eye: COMMON NORMALS: EOMs intact bilaterally Neck/C-Spine: COMMON NORMALS: no JVD Resp: COMMON NORMALS: normal respiratory effort and No use of accessory muscles Cardio: COMMON NORMALS: no JVD GI: INSPECTION: Yes normal to inspection Extremity: RIGHT LOWER EXTREMITY: Yes knee joint (Pain with range of motion.) Right knee: Yes palpation (Fluid in about the knee) and Yes other (Bruising noted.) Neuro: COMMON NORMALS: patient oriented x3 SENSORIUM/ORIENTATION: Yes alert Psych: COMMON NORMALS: mental status grossly normal Skin: COMMON NORMALS: no rashes or lesions noted GENERAL SKIN EXAM: no rashes or lesions noted Course Vital Signs: Vital signs: Vital Signs Temperature 98.1 F 07/16/21 11:14 Pulse Rate 74 07/16/21 11:14 Respiratory Rate 20 H 07/16/21 11:14 Blood Pressure 121/75 07/16/21 11:14 Pulse Oximetry 99 07/16/21 11:14 MDM - Extremity (Nontraumatic) Medical Decision Making Patient has right knee injury occurred on 07/04/2021. Patient has had bruising and pain to the knee. Patient is on Coumadin. Patient is knee as well more last couple days. Exam shows bruising old from mid thigh down to mid tibial area. Patient has significant fluid on the knee. X-ray shows soft tissue swelling anterior to the patella into the suprapatellar bursa. Discussed the case with Dr. Ivy, he recommended follow-up with orthopedic for possible drainage and treatment. Patient was placed on walker which she has at home. Also has a knee immobilizer. Patient was prescribed medications and showcase maker was contacted. Lab Data Radiology Impressions Knee X-Ray 07/16/21 11:04 Impression: 1. Negative for fracture or dislocation. 2. Soft tissue swelling anterior to the patella and in the suprapatellar bursa. 3. Chondral calcification in the medial lateral joint compartments. Kellgren-Irineo Classification: grade 1 (doubtful): doubtful joint space narrowing and possible osteophytic lipping Discharge Plan Discharge Patient Disposition: Home Clinical Impression: Acute knee pain, Bursitis of right patella Condition: Stable Prescriptions: New hydrocodone-acetaminophen 5-325 mg tablet 1 tab PO TID PRN (Reason: pain) Qty: 14 0RF cephalexin 500 mg capsule 500 mg PO Q8H 7 Days Qty: 21 0RF No Action aspirin [Adult Aspirin Regimen] 81 mg tablet,delayed release (DR/EC) 81 mg PO DAILY 0RF prednisone 10 mg tablet 10 mg PO .PRN 0RF hydrochlorothiazide 25 mg tablet 12.5 mg PO DAILY PRN (Reason: Edema) 0RF tamsulosin 0.4 mg capsule 0.4 mg PO QDAY Qty: 30 12RF lisinopril 40 mg tablet 40 mg PO DAILY 0RF Label Comments: Patient has been taking PRN warfarin 1 mg tablet 10 mg PO DAILY 0RF metoprolol tartrate 25 mg tablet 25 mg PO DAILY 0RF Label Comments: Patient has been taking PRN gabapentin 300 mg capsule 300 mg PO TID Qty: 90 0RF Discharge Orders: Discharge ED (Routine); Ordered 07/16/21 Ordered By: Mayank Harkins Referrals: Rosita Muro FNP [Primary Care Provider] - Discharge Diet: Usual diet Discharge Activity: Increase activity as tolerated Activity Restrictions/Additional Instructions: Follow-up with medical provider as directed. Take medications as prescribed. Return to the ER or your medical provider if condition worsens. Please read and understand discharge instructions. If any questions ask please. Case management will contact you with an appointment for orthopedic clinic. 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
--- NOTE | 2021-07-19 10:04 | DCPLANNER ---
Addendum entered by Nadeen Nichols 08/20/21 12:03: Patient had a follow up appointment scheduled for 08.02.21 with ortho - patient did attend appointment. Addendum entered by Nadeen Nichols 07/20/21 07:24: Patient has a followup appointment scheduled for Monday, August 02, 2021 at 11:[address] Thomas. Clinic will call patient with appointment information. Original Note: biodiesel product manager had message to schedule a follow up appointment for patient with ortho. biodiesel product manager called the ortho clinic, spoke with Linette, gave clinic patients information. biodiesel product manager was told that patients information would be printed and reviewed. Clinic will call patient with appointment information.
== END 2021-07-16 12:08 | disposition home or self-care (01) ==
PROVIDERS: Emergency Provider Nurse Practitioner Family; PCP Registered Nurse
DX: M70.51 Other bursitis of knee, right knee (principal); Z79.82 Long term (current) use of aspirin; Z79.01 Long term (current) use of anticoagulants; Z86.19 Personal history of other infectious and parasitic diseases; I10 Essential (primary) hypertension
CPT/HCPCS: 73562; 99282

== ENCOUNTER → 2021-08-02 11:05 | Outpatient (BNVA) | payer MEDICARE, BC, SELFPAY | PROVIDERS: PCP Registered Nurse; Referring Provider Nurse Practitioner Family; Visit Provider Specialist | DX: M25.561 Pain in right knee (principal) | CPT/HCPCS: 73560; 73565 ==

== ENCOUNTER 2021-08-02 13:38 | Outpatient (CLI) | payer MEDICARE, BC, SELFPAY | END 2021-08-02 13:39 | disposition home or self-care (01) | LOC: SPT 13:51 | PROVIDERS: PCP Registered Nurse; Visit Provider Specialist | DX: Z46.89 Encounter for fitting and adjustment of other specified devices (principal); M25.561 Pain in right knee; S89.91XD Unspecified injury of right lower leg, subsequent encounter; X58.XXXD Exposure to other specified factors, subsequent encounter | CPT/HCPCS: 97760; L1832 ==

== ENCOUNTER 2021-09-06 07:35 | Outpatient (CLI) | payer MEDICARE, BC, SELFPAY ==
--- NOTE | 2021-09-06 08:00 | MR_ITS ---
WS: [id number] MRI RIGHT KNEE NONCONTRAST TECHNIQUE: Axial PD, coronal PD fat sat, coronal PD, sagittal PD, and sagittal PD fat-sat images obta ined. CLINICAL INFORMATION: S89.90XA - Unspecified injury of unspecified lower leg, i... FINDINGS: Complete rupture of the quadriceps tendon distally. Patella baja with laxity in the patella tendon wh ich appears intact. Tiny avulsed fragments at the superior pole patella better seen on the recent rad iograph. No large avulsed fragments. Large amount of soft tissue edema. Moderate suprapatellar effusi on with hemarthrosis. Retraction of the quadriceps tendon measuring approximately 2 cm from the lyle la insertion. Normal ACL and PCL. Chronic thinning of the medial and lateral meniscus. No acute appearing meniscal tears. Horizontal tear involving the posterior horn medial meniscus extending to the meniscal root an d articular surface. Normal lateral meniscus. Medial and lateral collateral ligaments appear intact. Moderate degenerative narrowing medial and lat eral joint compartments with chondromalacia. Advanced chondromalacia patella with subchondral cystic change. Rupture of the medial patellar retinaculum with laxity and soft tissue edema. Lateral retinac ulum appears intact. MR/MR knee RT wo con* [id number] IMPRESSION: 1. Complete rupture of the distal quadriceps tendon with retraction measuring 2.0 cm. 2. Small avulsed fragments proximal pole patella better seen on the recent rad iograph. No large avulsed fragments. 3. Rupture of the medial patellar retinaculum with laxity. Lateral patellar re tinaculum appears intact. 4. Large joint effusion with hemarthrosis and soft tissue edema. 5. Normal ACL and PCL. 6. Horizontal tear involving the posterior horn medial meniscus extending to t he articular surface and meniscal root. Blunting of the medial meniscus. 7. Moderate to advanced tricompartmental arthritis. Outbridge grading: grade IV: full-thickness cartilage loss with underlying bone reactive changes
== END 2021-09-06 07:36 | disposition home or self-care (01) ==
LOC: RAD 07:38
PROVIDERS: PCP Registered Nurse; Visit Provider Specialist
DX: S76.111A Strain of right quadriceps muscle, fascia and tendon, initial encounter (principal); M25.461 Effusion, right knee; S83.241A Other tear of medial meniscus, current injury, right knee, initial encounter; X58.XXXA Exposure to other specified factors, initial encounter; M13.861 Other specified arthritis, right knee
CPT/HCPCS: 73721

== ENCOUNTER 2021-09-21 13:43 | Outpatient (CLI) | payer MEDICARE, BC, SELFPAY ==
--- NOTE | 2021-09-21 13:30 | XR_ITS ---
WS: [id number] KUB, AP view, 09/20/2021 Clinical Data: Urolithiasis Comparison: KUB, 03/24/2021. Findings: There are bilateral renal calcifications, the larger calcifications are on the left. There is a dextroscoliosis of the lumbar spine. There are clips in the right upper quadrant from a ch olecystectomy. There are or vascular calcifications. XR/XR KUB [id number] Impression: Bilateral renal calcifications.
== END 2021-09-21 13:44 | disposition home or self-care (01) ==
LOC: RAD 13:45
PROVIDERS: PCP Registered Nurse; Visit Provider Urology
DX: N28.89 Other specified disorders of kidney and ureter (principal)
CPT/HCPCS: 74018; 81003; 84153; 87077; 87086; 87184

== ENCOUNTER → 2021-09-27 09:14 | Outpatient (BNVA) | payer MEDICARE, BC, SELFPAY | PROVIDERS: PCP Registered Nurse; Visit Provider Specialist | DX: S76.111D Strain of right quadriceps muscle, fascia and tendon, subsequent encounter (principal); X58.XXXD Exposure to other specified factors, subsequent encounter; F17.210 Nicotine dependence, cigarettes, uncomplicated | CPT/HCPCS: 99214 ==

== ENCOUNTER 2021-10-22 11:41 | Day surgery (SDC) | payer MEDICARE, BC, SELFPAY ==
[2021-10-21 13:03] VITALS: BMI 32.8
[2021-10-22 12:32] VITALS: BP 124/89; PULSE 92; RESP 16; TEMP 36.2; O2SAT 95
[2021-10-22] MEDS: sodium chloride 0.9% 1,000 ML 30 ML IV (12:38)
[2021-10-22] MEDS: acetaminophen 1,000 MG/100 ML PIGGYBACK 400 MG IV (12:38)
[2021-10-22] MEDS: CELEcoxib 200 mg Capsule 400 MG PO (12:49)
[2021-10-22 13:19] LABS: Alanine Aminotransferase 10 U/L (0-41); Albumin Level 4.5 g/dL (3.5-5.2); Alkaline Phosphatase 60 IU/L (40-130); Aspartate Amino Transferase 18 U/L (0-40); Blood Urea Nitrogen 18 mg/dL (8-23); Calcium 9.3 mg/dL (8.5-10.5); Carbon Dioxide 27 mmol/L (22-29); Chloride 101 mmol/L (98-107); Glucose 101 mg/dL (65-115); Osmolality Calculated 288 mOsm/kg (285-295); Sodium 138 mmol/L (136-145); Total Bilirubin 0.8 mg/dL (0.15-1.2); Total Protein 7.5 g/dL (6.6-8.7)
[2021-10-22 13:25] LABS: Add Urine Culture? Yes; Add Urine Microscopic? YES; Bacteria Urine 1+ /hpf; Bilirubin Urine Neg (Negative); Blood Urine 2+ (Negative); Glucose Urine UA Norm (Normal); Ketones Urine Negative (Negative); Leukocyte Esterase Urine 2+ (Negative); Mucus Urine 2+ /hpf; Nitrate Urine Positive (Negative); Protein Urine Neg (Negative); RBC Urine 0-4 /hpf (0-2); Squamous Epithelial Cell Urine 0-4 /hpf (0-5); Urine Appearance Cloudy (CLEAR); Urine Color Yellow (Yellow); Urobilinogen Urine 1 mg/dL (Negative); WBC Urine >100 /hpf (0-5); pH Urine 6 (5-7)
[2021-10-22 13:26] LABS: Basophils % 0.5 %; Eosinophils # 0.3 10^3/uL (0.0-0.8); Eosinophils % 3.2 %; Hematocrit 44.4 % (42.0-52.0); Hemoglobin 14.2 g/dL (11.7-16.6); Lymphocytes # 1.4 10^3/uL (0.8-4.8); Lymphocytes % 18.4 %; Mean Corpuscular Hemoglobin 28.3 pg (28.0-34.0); Mean Corpuscular Volume 88.4 fl (80-94); Mean Platelet Volume 11.4 fL (7.4-10.4); Monocytes # 0.8 10^3/uL (0.2-0.9); Monocytes % 9.9 %; Neutrophils # 5.26 10^3/uL (1.8-7.7); Neutrophils % 67.1 %; Nucleated Red Blood Cells % 0 %; Platelet Count 258 10^3/cmm (130-400); Red Blood Count 5.02 10^6/uL (4.1-5.3); Red Cell Distribution Width 15.9 % (12.1-15.1); White Blood Count 7.8 10^3/uL (4.0-10.0)
--- NOTE | 2021-10-22 13:41 | ANES.PREANE2 ---
Pre-Anesthetic Assessment Height/Weight: Height 1.7 m Weight 95.254 kg Temp Pulse Resp BP Pulse Ox 97.2 F L 92 16 124/89 95 10/22/21 12:32 10/22/21 12:32 10/22/21 12:32 10/22/21 12:32 10/22/21 12:32 Preop Diagnosis: Right quadriceps tendon rupture Operation Date: 10/22/21 13:20 Proposed Procedures p Tendon Repair Quadriceps 24214/s76.11d(Right) - Wendi Thomas MD Familial anesthetic complications: none Was Beta Rita taken within 24 hours: Yes Was Clonidine taken within 24 hours: N/A Last intake: Intake Last Liquid Date 10/21/21 Last Liquid Time 23:30 Last Solid Date 10/21/21 Last Solid Time 17:00 Social Tobacco and No alcohol Exam alert, oriented x 3, clear to auscultation bilaterally and regular rate & rhythm Airway Submandibular: within normal limits Cervical ROM: within normal limits Mallampati: Class III Dentition: chipped Comments: Comments: missing some teeth Pulmonary Sleep Apnea CV/HEM Atrial Fibrillation and Hypertension Urolithiasis BPH Hepatic Hepatitis (C) Metabolic Thyroid Disease (Hypothyroidism ) Hyperparathyroidism Musc/skel Lower Back Pain and Osteoarthritis/DJD cervical spondylosis with radiculopathy quadriceps tendon rupture Neuropsych Neuropathy Anesthetic Plan ASA status: 3 (71 year old male with hx of smoking, afib, hematuria, BPH, urolithiasis, cervical/lumbar stenosis, gout, hepatitis C, HTN, LELAND) Anesthesia: Anesthesia Evaluation and General Other: We discussed risk and benefits of general anesthesia including PONV, sore throat (sometimes severe), corneal abrasion, positioning and peripheral nerve injuries, life threatening allergic reaction, post operative ICU admission requiring prolonged intubation, stroke, heart attack, , and rare incidences of recall. Patient consents to proceed with general anesthesia. Risk of > 500 ml blood loss (7ml/kg in children): No Medications/Allergies Home Medications Medication Instructions Recorded Confirmed Last Taken Type lisinopril 40 mg tablet 40 mg PO DAILY 12/09/19 10/22/21 10/21/21 History aspirin 81 mg tablet,delayed 81 mg PO DAILY 04/15/20 10/21/21 10/21/21 History release (Adult Aspirin Regimen) warfarin 1 mg tablet 10 mg PO DAILY tab 06/19/20 10/21/2110/15/22 History hydrochlorothiazide 25 mg tablet 12.5 mg PO DAILY PRN tab 07/31/20 10/22/21 10/21/21 History metoprolol tartrate 25 mg tablet 25 mg PO DAILY tab 08/12/20 10/22/21 10/21/21 History JAYLIN #1 ea NS 08/02/21 09/27/21 Unknown Rx tamsulosin 0.4 mg capsule See Rx Instructions .ROUTE 08/18/21 10/22/21 10/21/21 Rx .COMPLEX #90 cap levofloxacin 500 mg tablet 500 mg PO DAILY #10 tab 10/22/21 Unknown Rx Allergies Allergy/AdvReac Type Severity Reaction Status Date / Time No Known Allergies Allergy Verified 09/27/21 09:53 Current Medications Generic Name Dose Route Start Last Admin Trade Name Freq PRN Reason Stop Dose Admin Sodium Chloride 1,000 mls @ 30 mls/hr 10/22/21 12:30 10/22/21 12:38 Sodium Chloride 0.9% IV 10/23/21 12:29 30 mls/hr .Q24H CLARENCE Administration PFSH Anesthesia Medical History Acute cystitis with hematuria Asymptomatic microscopic hematuria Atrial fibrillation BPH loc w urin obs/LUTS BPH w/o urinary obs/LUTS Chest pain Diverticulosis Elevated PSA Erectile dysfunction due to diseases classified elsewhere Gout Gross hematuria Hepatitis C HTN (hypertension) Sleep apnea Smoker Urolithiasis Surgical History S/P cholecystectomy S/P ureteral stent placement Status post laser lithotripsy of ureteral calculus Family History Father , Age 76 Congestive heart failure Mother Osteoporosis Social History Smoking and tobacco status: current every day smoker Alcohol intake: current Alcohol intake frequency: few times a week Marital status: Current occupational status: retired History of recent travel: No Data Anesthesia : 10/22/21 12:30 10/22/21 12:30 Short CBC 10/22/21 Range/Units 12:30 WBC 7.8 (4.0-10.0) 10^3/uL Hgb 14.2 (11.7-16.6) g/dL Hct 44.4 (42.0-52.0) % MCV 88.4 (80-94) fl Plt Count 258 (130-400) 10^3/cmm Neut % (Auto) 67.1 % Neut # (Auto) 5.26 (1.8-7.7) 10^3/uL BMP 10/22/21 12:30 Sodium 138 Potassium 4.0 Chloride 101 Carbon Dioxide 27 BUN 18 Creatinine 0.7 Glucose 101 Calcium 9.3 Liver Function 10/22/21 Range/Units 12:30 Total Bilirubin 0.8 (0.15-1.2) mg/dL AST 18 (0-40) U/L ALT 10 (0-41) U/L Alkaline Phosphatase 60 (40-130) IU/L Albumin 4.5 (3.5-5.2) g/dL Urine 10/22/21 Range/Units 12:28 Urine Color Yellow (Yellow) Urine Appearance Cloudy (CLEAR) Urine pH 6 (5-7) Ur Specific [place] 1.020 (1.005-1.030) Urine Protein Neg (Negative) Urine Glucose (UA) Norm (Normal) Urine Ketones Negative (Negative) Urine Nitrate Positive H (Negative) Urine Bilirubin Neg (Negative) Ur Leukocyte Esterase 2+ H (Negative) Urine RBC 0-4 H (0-2) /hpf Urine WBC >100 H (0-5) /hpf Cardiac Studies: No Data to Display
--- NOTE | 2021-10-22 13:57 | P.HPUD_ITS ---
Surgery/Procedure H&P Update DATE OF PROCEDURE: October 22, 2021 DATE H&P PERFORMED: 09/27/21 H&P UPDATE INFORMATION: I have reviewed H&P completed within last 30 days, I have examined patient prior to procedure, No changes to prior documentation and H&P is in [facility] [place] on date indicated CHANGES TO PREVIOUS DOCUMENTATION: MRI: 1.? Complete rupture of the distal quadriceps tendon with retraction measuring 2.0 cm. 2.? Small avulsed fragments proximal pole patella better seen on the recent radiograph. No large avulsed fragments. 3.? Rupture of the medial patellar retinaculum with laxity. Lateral patellar retinaculum appears intact. 4.? Large joint effusion with hemarthrosis and soft tissue edema. 5.? Normal ACL and PCL. 6.? Horizontal tear involving the posterior horn medial meniscus extending to the articular surface and meniscal root. Blunting of the medial meniscus. 7.? Moderate to advanced tricompartmental arthritis. PREOP DIAGNOSIS: Right quadriceps tendon rupture PLANNED PROCEDURE: Operation Date: 10/22/21 13:20 Proposed Procedures p Tendon Repair Quadriceps 82658/s76.11d(Right) - Wendi Thomas MD Related Problem List Diagnoses (1) Quadriceps tendon rupture: Qualifiers: Encounter type: subsequent encounter Laterality: right Qualified Code(s): S76.111D - Strain of right quadriceps muscle, fascia and tendon, subsequent encounter
[2021-10-22 16:36] VITALS: BP 117/71; PULSE 85; RESP 16; TEMP 36.1; O2SAT 95
[2021-10-22 16:41] VITALS: BP 136/71; PULSE 74; RESP 16; O2SAT 99
--- NOTE | 2021-10-22 16:44 | ANE.PACU2 ---
Inpatient post-anesthesia follow up: Airway intact: Yes Vital signs: Temperature 97.0 F Pulse Rate 85 Respiratory Rate 16 Blood Pressure 117/71 Pulse Oximetry 95 Oxygen Delivery Me thod Room Air Oxygen Flow Rate Fraction of Inspir ed Oxygen Hydration adequate: Yes Nausea and vomiting: No Pain level: 1 Mental status: Baseline
[2021-10-22 16:51] VITALS: BP 131/75; PULSE 75; RESP 16; O2SAT 100
[2021-10-22 16:55] VITALS: BP 113/85; PULSE 73; RESP 18; TEMP 36.3; O2SAT 97
--- NOTE | 2021-10-22 17:02 | P.OP_ITS ---
Operative Report Date of procedure: October 22, 2021 Pre-op diagnosis: Chronic Right quadriceps tendon rupture Post-op diagnosis: Chronic Right quadriceps tendon rupture Procedure done: Repair chronic right quadriceps tendon rupture Implants: 2 X Eldena Biosteon IntraLine 5.5 mm suture anchor with 2 #2 Force Fiber sutures Pathology: none sent Surgeon: Wendi Thomas Tube Machine Operator Helper: [facility] operating room technicians Anesthesia: General (Intubated, ASA 3) Estimated blood loss (mL): 10 Tourniquet time (min): 77 (At 250 mmHg) IV fluids (mL): 1,000 Urine output (mL): 0 (No Romero) Complications: None Findings: Chronic tear of the quadriceps tendon at the attachment to the proximal patella Condition: stable Disposition: PACU (Then return to same-day surgery for discharge home) Brief History: This is an established 71 year old male patient who is here today for review of his right knee MRI. DOI:07/04/21. He states he now can extend his knee, but it is weak. He does report having a fall 3 weeks ago. MRI had been obtained on September 06, 2021. He is partial weight bearing with a cane. He states his pain is a 6/10 today. The patient was scheduled for operative intervention at his earliest convenience. Risks and complications were discussed with him. Consents were signed. Questions were answered. Procedure: The patient was brought to the operating theater, and after undergoing adequate general anesthesia per ET tube, ASA 3, the right lower extremity was prepped and draped in usual fashion following placement of a tourniquet high on the leg. The leg was then draped free with the prepping accomplished with DuraPrep. Following prepping and draping, the leg was exsanguinated, and the tourniquet was elevated to 250 mmHg for total tourniquet time of 77 minutes. Prior to elevation of the tourniquet the following exposure of the site of surgery, a surgical pause was performed. At the time of the surgical pause we confirmed the site and side of surgery. Additionally, we confirmed the appropriate and timely administration of preoperative antibiotics, Ancef 2 g. The availability of equipment was confirmed, and the patient's identity was verbalized as well. Following the surgical pause, an incision was made centering over the proximal patella and distal quadriceps continuing proximally and distally as necessary to allow access to the proximal aspect of the patella. Dissection continued through skin and soft tissues using a scalpel. Hemostasis was obtained using electrocautery. Soft tissues were elevated from the distal quadriceps. Given that this was a chronic tear, there was significant inflammation and adhesions which had to be opened. We also elevated soft tissues from the medial border of the patella. The area was evaluated, and there was complete avulsion of the distal quadriceps from the proximal patella. This quadriceps was addressed and freshened with a combination of rongeurs and sharp dissection. The knee was copiously irrigated with 3 L of fluid utilizing a pulse lavage. The proximal portion of the patella was then addressed with combination of a rongeur and a bur to allow the patella to have a good bed for reattachment of the tendon. 2 suture anchors were then placed into the patella, and each of these had 2 #2 Force Fiber sutures. At this point, we wove the Force Fiber sutures through the distal quadriceps tendon. After all the #2 Force Fiber sutures were placed and the tendon was secured to the proximal patella, the suture line was smoothed by using a 2-0 Monocryl. The wound was again irrigated. Attention was directed to closure. Closure was accomplished with 0 Vicryl in the fascial tissues further closing the distal tendon repair. 2-0 Monocryl was used in the subcutaneous tissues, and the skin was closed with skin gisella. A sterile dressing was then placed consisting of gisella, Dermabond pernio, and an OpSite. The patient was returned the Recovery Room in a satisfactory condition. The patient was then fitted with a [place] brace with motion allowed from 0 to 10 degrees. There were no specimens and no complications. He was seen in the preop area following surgery, and plans were made for his discharge to home. Related Problem List Diagnoses (1) Quadriceps tendon rupture:
[2021-10-22] MEDS: HYDROcodone-acetaminophen 5-325 mg Tablet 1 TAB PO (17:09)
[2021-10-22 17:10] VITALS: BP 128/84; PULSE 66; RESP 17; O2SAT 96
== END 2021-10-22 17:35 | disposition home or self-care (01) ==
PROVIDERS: PCP Registered Nurse; Visit Provider Specialist
PROC: (CPT 27385; principal; 2021-10-22 13:10)
DX: S76.111D Strain of right quadriceps muscle, fascia and tendon, subsequent encounter (principal); X58.XXXD Exposure to other specified factors, subsequent encounter; I48.91 Unspecified atrial fibrillation; I10 Essential (primary) hypertension; Z86.19 Personal history of other infectious and parasitic diseases; E03.9 Hypothyroidism, unspecified; G47.33 Obstructive sleep apnea (adult) (pediatric); Z79.01 Long term (current) use of anticoagulants; N40.1 Benign prostatic hyperplasia with lower urinary tract symptoms; N13.8 Other obstructive and reflux uropathy; F17.210 Nicotine dependence, cigarettes, uncomplicated
CPT/HCPCS: 27385; 80053; 81001; 85025; 87077; 87086; 87186; C1713; J0330; J1100; J2405; J2704; J2710; J3010; J3490; J7030; L1832

== ENCOUNTER → 2021-11-08 09:53 | Outpatient (BNVA) | payer MEDICARE, BC, SELFPAY | PROVIDERS: PCP Registered Nurse; Visit Provider Specialist | DX: S76.111D Strain of right quadriceps muscle, fascia and tendon, subsequent encounter (principal); X58.XXXD Exposure to other specified factors, subsequent encounter | CPT/HCPCS: 73560; 73565 ==

== ENCOUNTER → 2021-12-08 11:13 | Outpatient (BNVA) | payer MEDICARE, BC, SELFPAY | PROVIDERS: PCP Registered Nurse; Visit Provider Specialist | DX: S76.111D Strain of right quadriceps muscle, fascia and tendon, subsequent encounter (principal); X58.XXXD Exposure to other specified factors, subsequent encounter | CPT/HCPCS: 99024 ==

== ENCOUNTER 2021-12-22 14:50 | Outpatient (CLI) | payer MEDICARE, BC, SELFPAY | END 2021-12-22 14:51 | disposition home or self-care (01) | LOC: LAB 14:53 | PROVIDERS: PCP Registered Nurse; Visit Provider Urology | DX: R97.20 Elevated prostate specific antigen [PSA] (principal) | CPT/HCPCS: 36415; 84153 ==

== ENCOUNTER → 2021-12-27 15:06 | Outpatient (BNVA) | payer MEDICARE, BC, SELFPAY | PROVIDERS: PCP Registered Nurse; Visit Provider Urology | DX: R97.20 Elevated prostate specific antigen [PSA] (principal); N40.1 Benign prostatic hyperplasia with lower urinary tract symptoms; N20.2 Calculus of kidney with calculus of ureter; N30.01 Acute cystitis with hematuria | CPT/HCPCS: 81003; 87077; 87086; 87186; 99213 ==

== ENCOUNTER 2022-03-29 14:07 | Outpatient (CLI) | payer MEDICARE, BC, SELFPAY ==
--- NOTE | 2022-03-29 14:29 | XR_ITS ---
WS: [id number] KUB, AP view, 03/29/2022 Clinical Data: Urolithiasis Comparison: KUB, 09/21/2021 Findings: There are bilateral renal calcifications with larger calcifications on the left. Bowel gas obscures detail over the kidneys. There are vascular calcifications. There is a moderate amount of fecal mater ial in the colon. There are clips in the right upper quadrant from a cholecystectomy. There is a dextroscoliosis of the lumbar spine. XR/XR KUB [id number] Impression: Bilateral renal calcifications.
[2022-03-29 15:06] LABS: Prostate Specific AG Urology 7.16 ng/mL (0-4)
== END 2022-03-29 14:08 | disposition home or self-care (01) ==
PROVIDERS: PCP Registered Nurse; Visit Provider Urology
DX: N40.1 Benign prostatic hyperplasia with lower urinary tract symptoms (principal); N20.2 Calculus of kidney with calculus of ureter; R97.20 Elevated prostate specific antigen [PSA]; N20.9 Urinary calculus, unspecified
CPT/HCPCS: 74018; 81003; 84153; 99213

== ENCOUNTER → 2022-04-05 15:01 | Outpatient (BNVA) | payer MEDICARE, BC, SELFPAY | PROVIDERS: PCP Registered Nurse; Visit Provider Physician Assistant | DX: M48.062 Spinal stenosis, lumbar region with neurogenic claudication (principal); M81.0 Age-related osteoporosis without current pathological fracture; M41.9 Scoliosis, unspecified; M47.816 Spondylosis without myelopathy or radiculopathy, lumbar region | CPT/HCPCS: 72110; 99213 ==

== ENCOUNTER 2022-04-22 16:08 | Outpatient (CLI) | payer MEDICARE, BC, SELFPAY ==
--- NOTE | 2022-04-22 16:15 | MRR_ITS ---
PROCEDURE INFORMATION: Exam: MR Lumbar Spine Without Contrast Exam date and time: 04/22/2022 4:24 PM Age: 72 years old Clinical indication: Low back pain TECHNIQUE: Imaging protocol: Magnetic resonance imaging of the lumbar spine without contrast. COMPARISON: MR lumbar spine wo con* [id number] 05/18/2020 1:57 PM FINDINGS: Bones/joints: Rightward thoracic scoliosis. The vertebral body stature is maintained. No fracture or subluxation. Mild degenerative endplate signal changes at T12-L1, L1-L2, and L5-S1. Spinal cord: Visualized cord, conus medullaris and cauda equina are unremarkable without compression. T12-L1: Mild disc bulge. No foraminal stenosis. Mild central canal stenosis. L1-L2: Disc space narrowing with disc bulge. Mild right and moderate left foraminal stenosis. Mild central canal stenosis. L2-L3: Circumferential disc bulge. Disc space narrowing. Moderate left and mild right foraminal stenosis. Moderate central canal stenosis. L3-L4: Circumferential disc bulge with disc space narrowing. Moderate bilateral foraminal stenosis. Severe central canal stenosis. L4-L5: Circumferential disc bulge. Disc space narrowing. Moderate bilateral foraminal stenosis. Mild central canal stenosis. L5-S1: Circumferential disc bulge. Moderate left and severe right foraminal stenosis. No central canal stenosis. Soft tissues: Unremarkable. Kidneys and ureters: Right renal cysts. 10 mm left renal calculus. MR/MR lumbar spine wo con* [id number] IMPRESSION: 1. No fracture or acute finding. 2. Scoliosis and multilevel degenerative changes. 3. The most significant central canal stenosis is moderate at L2-L3 and severe at L3-L4. The most significant foraminal stenosis is severe on the right at L5-S1 and moderate at multiple levels.
== END 2022-04-22 16:09 | disposition home or self-care (01) ==
LOC: RAD 16:09
PROVIDERS: PCP Registered Nurse; Visit Provider Physician Assistant
DX: M41.86 Other forms of scoliosis, lumbar region (principal); M48.061 Spinal stenosis, lumbar region without neurogenic claudication; M48.07 Spinal stenosis, lumbosacral region
CPT/HCPCS: 72148

== ENCOUNTER → 2022-04-28 13:39 | Outpatient (BNVA) | payer MEDICARE, BC, SELFPAY | PROVIDERS: PCP Registered Nurse; Visit Provider Physician Assistant | DX: M48.062 Spinal stenosis, lumbar region with neurogenic claudication (principal) | CPT/HCPCS: 99213 ==

== ENCOUNTER → 2022-05-12 08:59 | Outpatient (BNVA) | payer MEDICARE, BC, SELFPAY | PROVIDERS: PCP Registered Nurse; Referring Provider Physician Assistant; Visit Provider Anesthesiology Pain Medicine | DX: M48.062 Spinal stenosis, lumbar region with neurogenic claudication (principal); M50.90 Cervical disc disorder, unspecified, unspecified cervical region; M79.604 Pain in right leg; M79.605 Pain in left leg | CPT/HCPCS: 99215 ==

== ENCOUNTER → 2022-06-07 13:49 | Outpatient (BNVA) | payer MEDICARE, BC, SELFPAY | PROVIDERS: PCP Registered Nurse; Visit Provider Anesthesiology Pain Medicine | DX: M54.16 Radiculopathy, lumbar region (principal); M48.062 Spinal stenosis, lumbar region with neurogenic claudication | CPT/HCPCS: 64483; 64484 ==

== ENCOUNTER → 2022-06-21 08:56 | Outpatient (BNVA) | payer MEDICARE, BC, SELFPAY | PROVIDERS: PCP Registered Nurse; Visit Provider Anesthesiology Pain Medicine | DX: M48.062 Spinal stenosis, lumbar region with neurogenic claudication (principal); M50.90 Cervical disc disorder, unspecified, unspecified cervical region; M79.604 Pain in right leg; M79.605 Pain in left leg | CPT/HCPCS: 99214 ==

== ENCOUNTER → 2022-07-12 14:19 | Outpatient (BNVA) | payer MEDICARE, BC, SELFPAY | PROVIDERS: PCP Registered Nurse; Visit Provider Anesthesiology Pain Medicine | DX: M54.16 Radiculopathy, lumbar region (principal); M47.816 Spondylosis without myelopathy or radiculopathy, lumbar region; M48.062 Spinal stenosis, lumbar region with neurogenic claudication | CPT/HCPCS: 64635; 64636; J1030 ==

== ENCOUNTER → 2022-08-17 11:19 | Outpatient (BNVA) | payer MEDICARE, BC, SELFPAY | PROVIDERS: Visit Provider Anesthesiology Pain Medicine | DX: M48.062 Spinal stenosis, lumbar region with neurogenic claudication (principal); M50.90 Cervical disc disorder, unspecified, unspecified cervical region; M79.604 Pain in right leg; M79.605 Pain in left leg | CPT/HCPCS: 99213; 99214 ==

== ENCOUNTER → 2022-08-31 08:52 | Outpatient (BNVA) | payer MEDICARE, BC, SELFPAY | PROVIDERS: Visit Provider Anesthesiology Pain Medicine | DX: M79.18 Myalgia, other site (principal); M48.062 Spinal stenosis, lumbar region with neurogenic claudication; M50.90 Cervical disc disorder, unspecified, unspecified cervical region | CPT/HCPCS: 20553; 99213 ==

== ENCOUNTER 2022-09-26 13:54 | Outpatient (CLI) | payer MEDICARE, BC, SELFPAY ==
--- NOTE | 2022-09-26 14:06 | XR_ITS ---
WS: [id number] XR KUB [id number] REASON FOR EXAM: STONES FINDINGS: Multi angular 9 mm calculus overlying the mid medial margin of the right kidney. No change compared t o 09/21/2021. There are multiple complex shape calculi overlying the mid to upper portion of the left kidney unchan ged compared to 09/21/2021. There is an additional, presumed calculus, more medial in position that po tentially could be at the left ureteral pelvic junction. This is also unchanged compared to 09/21/2021 . No other significant findings. XR/XR KUB [id number] IMPRESSION: Multiple renal calculi as above.
== END 2022-09-26 13:55 | disposition home or self-care (01) ==
LOC: RAD 14:00
PROVIDERS: PCP Nurse Practitioner; Visit Provider Nurse Practitioner
DX: N20.2 Calculus of kidney with calculus of ureter (principal); M48.062 Spinal stenosis, lumbar region with neurogenic claudication; M54.2 Cervicalgia; M50.90 Cervical disc disorder, unspecified, unspecified cervical region
CPT/HCPCS: 51741; 51798; 74018; 81003; 99213

== ENCOUNTER → 2022-09-29 11:19 | Outpatient (BNVA) | payer MEDICARE, BC, SELFPAY | PROVIDERS: PCP Nurse Practitioner; Visit Provider Anesthesiology Pain Medicine | DX: M48.062 Spinal stenosis, lumbar region with neurogenic claudication (principal); M50.90 Cervical disc disorder, unspecified, unspecified cervical region | CPT/HCPCS: 99213 ==

== ENCOUNTER → 2022-11-01 10:12 | Outpatient (BNVA) | payer MEDICARE, BC, SELFPAY | PROVIDERS: PCP Nurse Practitioner; Visit Provider Anesthesiology Pain Medicine | DX: M48.062 Spinal stenosis, lumbar region with neurogenic claudication (principal); M50.90 Cervical disc disorder, unspecified, unspecified cervical region | CPT/HCPCS: 99214 ==

== ENCOUNTER → 2022-11-16 11:03 | Outpatient (BNVA) | payer MEDICARE, BC, SELFPAY | PROVIDERS: PCP Nurse Practitioner; Visit Provider Specialist | DX: M25.561 Pain in right knee (principal); G89.29 Other chronic pain; S76.111S Strain of right quadriceps muscle, fascia and tendon, sequela; X58.XXXS Exposure to other specified factors, sequela | CPT/HCPCS: 73560; 73565; 99214 ==

== ENCOUNTER → 2022-11-23 14:22 | Outpatient (BNVA) | payer MEDICARE, BC, SELFPAY | PROVIDERS: PCP Nurse Practitioner; Visit Provider Anesthesiology Pain Medicine | DX: M47.816 Spondylosis without myelopathy or radiculopathy, lumbar region (principal); M48.062 Spinal stenosis, lumbar region with neurogenic claudication | CPT/HCPCS: 64635; 64636; J1030 ==

== ENCOUNTER 2022-12-06 14:03 | Outpatient (CLI) | payer MEDICARE, BC, SELFPAY ==
--- NOTE | 2022-12-06 14:30 | MR_ITS ---
WS: [id number] MRI RIGHT KNEE NONCONTRAST TECHNIQUE: Axial PD, coronal PD fat sat, coronal PD, sagittal PD, and sagittal PD fat-sat images obta ined. CLINICAL INFORMATION: knee pain, previous quad sx COMPARISON: MRI September 06, 2021 FINDINGS: Prior rupture of the distal quadriceps tendon seen on the prior MRI. Evidence of interval repair with fasteners involving the superior pole patella. Distal quadriceps tendon appears intact with small am ount of increased T2 signal abnormality distally likely due to prior postoperative repair and/or tend inopathy. No acute patellar fractures. Some laxity involving the quadriceps tendon likely due to post operative changes and scarring. ACL and PCL appear intact. Patella tendon is intact. Normal MCL and LCL. Normal bone marrow signal in the head of the fibula. Previous tear posterior horn medial meniscus was present on the prior examin ation. Normal lateral meniscus. Moderate chondromalacia patella. No subchondral edema. Medial and lateral collateral ligaments appear intact. Repair of the medial patellar retinaculum whic h appears intact. Lateral patellar retinaculum appears intact. Normal popliteal fossa. Moderate chond romalacia involving the medial and lateral joint compartments. MR/MR knee RT wo con* [id number] IMPRESSION: 1. Prior postoperative changes distal quadriceps tendon repair with patella an chors in the superior patella. 2. Some laxity in the distal quadriceps tendon with increased signal distally likely due to sequelae from prior postoperative changes. Suspected tendinopathy postoperative changes in the distal tendon insertion. 3. Normal ACL and PCL. 4. Previous tear involving the posterior horn medial meniscus unchanged. Later al meniscus is intact. 5. Moderate chondromalacia involving the medial and lateral joint compartments and patella. 6. No other acute findings. Outbridge grading: grade III: partial-thickness cartilage loss with focal ulcer ation
== END 2022-12-06 14:04 | disposition home or self-care (01) ==
LOC: RAD 14:07
PROVIDERS: PCP Nurse Practitioner; Visit Provider Specialist
DX: M25.561 Pain in right knee (principal); Z98.890 Other specified postprocedural states; M22.41 Chondromalacia patellae, right knee
CPT/HCPCS: 73721

== ENCOUNTER → 2022-12-28 10:28 | Outpatient (BNVA) | payer MEDICARE, BC, SELFPAY | PROVIDERS: PCP Nurse Practitioner; Visit Provider Anesthesiology Pain Medicine | DX: M48.062 Spinal stenosis, lumbar region with neurogenic claudication (principal); M50.90 Cervical disc disorder, unspecified, unspecified cervical region; M25.561 Pain in right knee | CPT/HCPCS: 99213 ==

== ENCOUNTER → 2023-01-11 14:13 | Outpatient (BNVA) | payer MEDICARE, BC, SELFPAY | PROVIDERS: PCP Nurse Practitioner; Visit Provider Specialist | DX: S76.111S Strain of right quadriceps muscle, fascia and tendon, sequela (principal); M23.51 Chronic instability of knee, right knee; X58.XXXS Exposure to other specified factors, sequela | CPT/HCPCS: 99213 ==

== ENCOUNTER → 2023-05-11 10:06 | Outpatient (BNVA) | payer MEDICARE, BC, SELFPAY | PROVIDERS: PCP Nurse Practitioner; Visit Provider Physician Assistant | DX: M48.062 Spinal stenosis, lumbar region with neurogenic claudication; M47.22 Other spondylosis with radiculopathy, cervical region; M50.30 Other cervical disc degeneration, unspecified cervical region | CPT/HCPCS: 72040; 72100; 99214 ==

== ENCOUNTER 2023-06-14 10:27 | Outpatient (CLI) | payer MEDICARE, BC, SELFPAY ==
--- NOTE | 2023-06-14 11:00 | MR_ITS ---
WS: [id number] MRI THORACIC SPINE WITHOUT CONTRAST TECHNIQUE: Sagittal T1, T2 and STIR imaging. Axial T2 imaging. Noncontrast imaging obtained. CLINICAL INFORMATION: thoracic COMPARISON: None. FINDINGS: Mild thoracic curve. Mild thoracic kyphosis. No acute compression. Spinal canal is patent. Mild centr al canal stenosis in the cervical spine on the stable manager imaging at C3-C6. Small disc protrusions in the midthoracic spine most prominent at T8-T9 with slight effacement of the ventral thecal sac. Smaller s hallow central protrusions at T4-T5, T5-T6, T6-T7, T7-T8. Shallow central protrusion T12-L1 with RIGHT paracentral disc herniation. Mild central canal stenosis . Mild RIGHT T10-11 and T12-L1 foraminal narrowing. Moderate facet arthropathy in the lower thoracic sp ine. 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 Maximum dimension measures 3.2 mm. Cord signal is otherwise normal. Normal caliber thoracic aorta. Adrenal glands are normal. IMPRESSION: 1. Mild thoracic curve. Moderate thoracic kyphosis. 2. Focal myelomalacia with syrinx in the thoracic cord at T7 described above. Cord signal is otherwi se normal. 3. Shallow central disc protrusions in the midthoracic spine more prominent at T8-T9. No significant central canal stenosis. 4. Moderate facet arthropathy lower thoracic spine. 5. RIGHT paracentral disc herniation T12-L1 with mild central canal stenosis and narrowing of the RI GHT subarticular recess. 6. Mild RIGHT T10-11 and RIGHT T12-L1 foraminal narrowing.
--- NOTE | 2023-06-14 11:45 | MR_ITS ---
WS: [email or web address] MRI CERVICAL SPINE NONCONTRAST TECHNIQUE: Sagittal T1, T2 and STIR imaging. Axial T2, gradient, and fiesta imaging. CLINICAL INFORMATION: cervical COMPARISON: None. FINDINGS: Straightening of the normal cervical lordosis. Moderate spondylitic changes. Slight anterolisthesis C 3 on C4. Disc space narrowing C3-C6. Cord signal is normal. C2-C3: Mild disc osteophytic ridging. Mild facet arthropathy. Mild LEFT greater than RIGHT foraminal narrowing. Spinal canal is patent. C3-C4: Disc osteophyte complex with endplate ridging. Mild central canal stenosis. This is stable com pared to previous. Moderate RIGHT and mild LEFT foraminal narrowing. Moderate RIGHT facet arthropathy . C4-C5: Disc osteophyte complex with endplate ridging. Mild central canal stenosis. Severe RIGHT and m oderate to severe LEFT bony foraminal narrowing. Moderate facet arthropathy. C5-C6: Disc osteophyte complex with endplate ridging. Moderate to severe LEFT and moderate RIGHT bony foraminal narrowing. Moderate facet arthropathy. Spinal canal is patent. C6-C7: Disc osteophyte complex with endplate ridging. Mild central canal stenosis. Severe LEFT and mo derate RIGHT bony foraminal narrowing. Mild facet arthropathy. C7-T1: Mild disc bulge with endplate ridging. Moderate LEFT and mild RIGHT bony foraminal narrowing. Spinal canal is patent. Visualized brain stem structures: Normal. Prevertebral soft tissues: Normal. IMPRESSION: 1. Straightening of the normal cervical doses with moderate spondylitic changes. 2. Mild central canal stenosis C3-C4 C4-C5 and C6-C7 stable compared to previous. 3. Moderate to severe bony foraminal narrowing worse at RIGHT C3-C4, RIGHT C4-C5, LEFT C5-C6, and LE FT C6-C7. This appears stable compared to previous. 4. Disc space narrowing slightly progressed in the mid cervical spine at C4-C5 and C5-C6. 5. No other significant interval changes.
--- NOTE | 2023-06-14 13:45 | MR_ITS ---
WS: [email or web address] MRI LUMBAR SPINE NONCONTRAST TECHNIQUE: Sagittal T1, T2 and STIR imaging. Axial T1 and T2 imaging. CLINICAL INFORMATION: lumbar pain COMPARISON: 04/22/2022 FINDINGS: Mild lumbar curve. No acute compression. Slight anterolisthesis L3 on L4 and L4 on L5. L1-L2: Mild disc bulging with osteophytic ridging. Mild central canal stenosis. Mild facet arthropath y. Slight retrolisthesis. Mild LEFT greater than RIGHT foraminal narrowing. L2-L3: Shallow central disc protrusion with moderate central canal stenosis. Moderate facet arthropat hy. Mild to moderate LEFT greater than RIGHT bony foraminal narrowing. Moderate facet arthropathy. L3-L4: Slight anterolisthesis. Moderate to severe central canal stenosis slightly progressed compared to previous. Moderate facet arthropathy with ligamentum flavum hypertrophy. Mild to moderate LEFT gr eater than RIGHT foraminal narrowing. L4-L5: Mild disc bulging with slight narrowing of the RIGHT subarticular recess. Mild RIGHT and no si gnificant LEFT foraminal narrowing. Moderate facet arthropathy. L5-S1: Shallow central disc protrusion with slight contact of the traversing S1 nerve roots. RIGHT fo raminal protrusion with moderate RIGHT and mild LEFT foraminal narrowing. Mild to moderate facet arth ropathy. Partially visualized RIGHT renal cyst. Visualized pelvic bony structures: Normal. Paravertebral soft tissues: Normal. IMPRESSION: 1. Mild lumbar curve. No acute compression. Slight anterolisthesis L3 on L4 and L4 on L5. 2. Moderate central canal stenosis L2-L3 is stable. Moderate to severe central canal stenosis L3-4 a ppears slightly progressed compared to previous with impingement on the traversing L4 nerve roots meg aterally. Moderate facet arthropathy with ligamentum flavum hypertrophy contributes to stenosis. 3. RIGHT foraminal disc protrusion L5-S1 unchanged compared to previous with impingement on the prox imal exiting RIGHT L5 nerve root with moderate RIGHT foraminal narrowing. 4. Mild central canal stenosis L1-2 with narrowing of the LEFT greater than RIGHT subarticular reces s appears unchanged. 5. Mild to moderate LEFT L2-3 and LEFT L3-4 foraminal narrowing.
== END 2023-06-14 10:28 | disposition home or self-care (01) ==
LOC: RAD 10:28
PROVIDERS: PCP Nurse Practitioner; Visit Provider Physician Assistant
DX: M48.062 Spinal stenosis, lumbar region with neurogenic claudication (principal); M48.07 Spinal stenosis, lumbosacral region; M47.816 Spondylosis without myelopathy or radiculopathy, lumbar region; M51.27 Other intervertebral disc displacement, lumbosacral region; M47.812 Spondylosis without myelopathy or radiculopathy, cervical region; M48.02 Spinal stenosis, cervical region; M40.204 Unspecified kyphosis, thoracic region; G95.89 Other specified diseases of spinal cord; M47.814 Spondylosis without myelopathy or radiculopathy, thoracic region; M51.24 Other intervertebral disc displacement, thoracic region; M48.05 Spinal stenosis, thoracolumbar region
CPT/HCPCS: 72141; 72146; 72148

== ENCOUNTER → 2023-06-22 14:37 | Outpatient (BNVA) | payer MEDICARE, BC, SELFPAY | PROVIDERS: PCP Nurse Practitioner; Visit Provider Orthopaedic Surgery | DX: M48.062 Spinal stenosis, lumbar region with neurogenic claudication (principal); M50.31 Other cervical disc degeneration, high cervical region; M50.321 Other cervical disc degeneration at C4-C5 level; M50.322 Other cervical disc degeneration at C5-C6 level; M50.323 Other cervical disc degeneration at C6-C7 level | CPT/HCPCS: 99214 ==

== ENCOUNTER → 2023-07-07 12:48 | Outpatient (BNVA) | payer MEDICARE, BC, SELFPAY | PROVIDERS: PCP Nurse Practitioner; Visit Provider Orthopaedic Surgery | DX: M48.062 Spinal stenosis, lumbar region with neurogenic claudication (principal); Z01.812 Encounter for preprocedural laboratory examination; Z79.899 Other long term (current) drug therapy | CPT/HCPCS: 36415; 80053; 81001; 85025; 87086; 99214 ==

== ENCOUNTER → 2023-07-13 09:18 | Outpatient (BNVA) | payer MEDICARE, BC, SELFPAY | PROVIDERS: PCP Nurse Practitioner; Visit Provider Family Medicine | DX: Z01.818 Encounter for other preprocedural examination (principal); R31.0 Gross hematuria | CPT/HCPCS: 85610 ==

== ENCOUNTER 2023-07-17 10:45 | Day surgery (SDC) | payer MEDICARE, BC, SELFPAY ==
[2023-07-17] VITALS (10 sets, daily range): BP systolic 121–156; BP diastolic 79–99; PULSE 67–89; RESP 16–19; TEMP 36.1–36.6; O2SAT 93–97; BMI 32.8
--- NOTE | 2023-07-17 | XR_ITS ---
WS: [email or web address] INTRAOPERATIVE TECHNIQUE: 2 Spot fluoroscopic images for intraoperative purposes. FLUOROSCOPY TIME: 23.1 seconds CLINICAL INFORMATION: or pic, decompression COMPARISON: None. FINDINGS: Localization marker projected over the L3-4 and L4-5 interspaces IMPRESSION: Images obtained for intraoperative purposes.
[2023-07-17] MEDS: sodium chloride 0.9% 1,000 ML 30 ML IV (11:24)
--- NOTE | 2023-07-17 11:50 | ANES.PREANE2 ---
Pre-Anesthetic Assessment Height/Weight: Height 1.7 m Weight 95.254 kg Temp Pulse Resp BP Pulse Ox O2 Del Method 97.8 F 67 18 137/82 95 Room Air 07/17/23 11:30 07/17/23 11:30 07/17/23 11:30 07/17/23 11:30 07/17/23 11:30 07/17/23 11:35 Operation Date: 07/17/23 12:30 Proposed Procedures p Lumbar Spine Decompression(Not Applicable) - Ad Posey, DO Familial anesthetic complications: None Was Beta Rita taken within 24 hours: N/A Was Clonidine taken within 24 hours: N/A Last intake: Intake Last Liquid Date 07/16/23 Last Liquid Time 22:00 Last Solid Date 07/16/23 Last Solid Time 22:00 Social Tobacco and No alcohol encouraged smoking cessation and follow up w/ PCP for guidance Exam alert, oriented x 3, clear to auscultation bilaterally and regular rate & rhythm Airway Mallampati: Class IV Dentition: other (poor dentition, discolored) Comments: Comments: Full mari Pulmonary Sleep Apnea CV/HEM Atrial Fibrillation (warfarin last monday) and Hypertension Hepatic Hepatitis (C) Metabolic Hyperlipidemia Anesthetic Plan ASA status: 3 Anesthesia: General Risk of > 500 ml blood loss (7ml/kg in children): No Medications/Allergies Home Medications Medication Instructions Recorded Confirmed Last Taken Type lisinopril 40 mg tablet 40 mg PO DAILY 12/09/19 07/14/23 07/16/23 History aspirin 81 mg tablet,delayed 81 mg PO DAILY 04/15/20 07/17/23 07/16/23 History release (Adult Aspirin Regimen) hydrochlorothiazide 25 mg tablet 12.5 mg PO DAILY Edema 07/31/20 07/17/23 07/17/23 06:00 History metoprolol tartrate 25 mg tablet 25 mg PO DAILY 08/12/20 07/14/23 07/17/23 06:00 History prednisone 10 mg tablet 10 mg PO DAILY PRN Diarrhea 03/29/22 07/14/23 07/10/23 History tizanidine 2 mg capsule 2 mg PO Q8H PRN Diarrhea 03/29/22 07/14/23 07/16/23 History MARIJUANA 1 g inhalation ONCE 05/12/22 07/14/23 07/16/23 History pantoprazole 20 mg tablet,delayed 20 mg PO DAILY 06/21/22 07/14/23 07/17/23 06:00 History release atorvastatin 10 mg tablet 10 mg PO DAILY 08/17/22 07/14/23 07/16/23 History loperamide 2 mg capsule 2 mg PO Q6H PRN Diarrhea 09/26/22 07/14/23 Unknown History warfarin 5 mg tablet 8 mg PO DAILY 11/16/22 07/17/23 07/11/23 History tamsulosin 0.4 mg capsule 0.4 mg PO DAILY 07/17/23 07/17/23 07/16/23 History Allergies Allergy/AdvReac Type Severity Reaction Status Date / Time No Known Allergies Allergy Verified 07/14/23 08:20 Current Medications Generic Name Dose Route Start Last Admin Trade Name Freq PRN Reason Stop Dose Admin Sodium Chloride 1,000 mls @ 30 mls/hr 07/17/23 11:00 07/17/23 11:24 Sodium Chloride 0.9% IV 07/18/23 10:59 30 mls/hr .Q24H CLARENCE Administration PFSH Anesthesia Medical History Diverticulosis Asymptomatic microscopic hematuria BPH loc w urin obs/LUTS Acute cystitis with hematuria BPH w/o urinary obs/LUTS Gross hematuria Erectile dysfunction due to diseases classified elsewhere Elevated PSA HTN (hypertension) Sleep apnea Smoker Chest pain Atrial fibrillation Gout Hepatitis C Urolithiasis Surgical History Status post laser lithotripsy of ureteral calculus S/P ureteral stent placement S/P cholecystectomy Family History Father , Age 76 Congestive heart failure Mother Osteoporosis Social History Smoking and tobacco/nicotine status: current every day tobacco/nicotine user Alcohol intake: current Alcohol intake frequency: few times a month Alcohol type: beer Substance/Drug Use: current Substance/Drug use frequency: daily Marital status: Current occupational status: retired Data Anesthesia Cardiac Studies: No Data to Display
[2023-07-17 12:33] LABS: INR 1.08 (0.8-1.2)
--- NOTE | 2023-07-17 13:43 | W.PM.OPSUD ---
Surgery/Procedure H&P Update DATE OF PROCEDURE: July 17, 2023 DATE H&P PERFORMED: 07/13/23 H&P UPDATE INFORMATION: I have reviewed H&P completed within last 30 days, I have examined patient prior to procedure and No changes to prior documentation PLANNED PROCEDURE: Operation Date: 07/17/23 12:30 Proposed Procedures p Lumbar Spine Decompression(Not Applicable) - Ad Posey DO
[2023-07-17] MEDS: ceFAZolin 2,000 MG in sodium chloride 0.9% (plus) 50 ML 100 MG IV (14:13)
[2023-07-17] MEDS: lidocaine-epi 2% PF 1:200,000 20 mL SDV XX (14:41)
--- NOTE | 2023-07-17 15:32 | PM.OP ---
Operative Report Date of procedure: July 17, 2023 Pre-op diagnosis: Lumbar stenosis with neurogenic claudication Post-op diagnosis: same Procedure done: 1. L3-4 laminectomy with partial facetectomy 2. L4-5 laminectomy with partial facetectomy Surgeon: Ad Posey DO Estimated blood loss (mL): 50 Procedure: 1. L3-4 laminectomy with partial facetectomy 2. L4-5 laminectomy with partial facetectomy Patient is brought to the operative suite. After undergoing anesthesia they are placed in the prone position. All areas of impingement are well padded. Patient is then prepped and draped in the normal sterile fashion. A skin incision is made over the L3/4 level. This is confirmed under c-arm guidance. A series of dilators are passed and the tubular retractor is docked on the L3 lamina. A bovie is used to clear the soft tissue off the lamina and the L 3/4 facet joint. A high speed ted is then used to perform the laminectomy and take down the medial aspect of the L 3/4 facet joint. A kerrison rongeure was then used to take down the remaining lamina and smooth the edge of the laminectomy up to the point where the ligamentum flavum attaches. Attention was then brought to the medial aspect of the facet joint. The remaining medial aspect of the superior and inferior aspect of the facet joint were taken down with the kerrison from the pedicle of L3 to L 4. The facet joint had significant hypertrophy. Attention was then brought to the Ligamentum Flavum. The ligament was taken down from the lamina of L3 to L4 and out medially to the remaining facet joint. The ligament was thick. The dura was then exposed. The dura was in good repair. The L3 nerve was then traced with a curette out the L3/4 foramen and found to be adequately decompressed. The L4 nerve was traced with a curette around the L4 pedicle. The lateral recess was opened with a kerrison helping to further decompress the L4 nerve. Wound is then irrigated copiously with saline and surgiflo is used to stop any bleeding. The tubular retractor is removed and the A skin incision is made over the L4/5 level. This is confirmed under c-arm guidance. A series of dilators are passed and the tubular retractor is docked on the L4 lamina. A bovie is used to clear the soft tissue off the lamina and the L 4/5 facet joint. A high speed ted is then used to perform the laminectomy and take down the medial aspect of the L 4/5 facet joint. A kerrison rongeure was then used to take down the remaining lamina and smooth the edge of the laminectomy up to the point where the ligamentum flavum attaches. Attention was then brought to the medial aspect of the facet joint. The remaining medial aspect of the superior and inferior aspect of the facet joint were taken down with the kerrison from the pedicle of L4 to L 5. The facet joint had significant hypertrophy. Attention was then brought to the Ligamentum Flavum. The ligament was taken down from the lamina of L4 to L5 and out medially to the remaining facet joint. The ligament was thick. The dura was then exposed. The dura was in good repair. The L4 nerve was then traced with a curette out the L4/5 foramen and found to be adequately decompressed. The L5 nerve was traced with a curette around the L5 pedicle. The lateral recess was opened with a kerrison helping to further decompress the L5 nerve. Wound is then irrigated copiously with saline and surgiflo is used to stop any bleeding. The tubular retractor is removed and the wound is closed with vicryl and monocryl suture. Glue is then used to protect the wound. A sterile dressing is then placed. Patient was then placed in the supine position and transferred to the PACU in stable condition.
[2023-07-17] MEDS: HYDROcodone-acetaminophen 5-325 mg Tablet 1 TAB PO (16:27)
--- NOTE | 2023-07-17 16:50 | ANE.PACU2 ---
Inpatient post-anesthesia follow up: Airway intact: Yes Vital signs: Temperature 97.0 F Pulse Rate 74 Respiratory Rate 18 Blood Pressure 121/99 Pulse Oximetry 94 Oxygen Delivery Me thod Room Air Oxygen Flow Rate Fraction of Inspir ed Oxygen Hydration adequate: Yes Nausea and vomiting: No Pain level: 1 Mental status: Baseline
== END 2023-07-17 16:50 | disposition home or self-care (01) ==
PROVIDERS: Anesthesiology; Visit Provider Orthopaedic Surgery
PROC: (CPT 63005; principal; 2023-07-17 12:20)
DX: M48.062 Spinal stenosis, lumbar region with neurogenic claudication (principal); G47.30 Sleep apnea, unspecified; I48.91 Unspecified atrial fibrillation; Z79.01 Long term (current) use of anticoagulants; I10 Essential (primary) hypertension; Z86.19 Personal history of other infectious and parasitic diseases; E78.5 Hyperlipidemia, unspecified; Z79.82 Long term (current) use of aspirin; N40.1 Benign prostatic hyperplasia with lower urinary tract symptoms; N13.8 Other obstructive and reflux uropathy; F17.210 Nicotine dependence, cigarettes, uncomplicated
CPT/HCPCS: 63047; 63048; 72020; 76000; 85610; J0330; J0690; J1100; J2405; J2704; J3010; J3490; J7030

== ENCOUNTER 2023-07-22 05:58 | Inpatient (IN) | payer MEDICARE, BC, SELFPAY ==
[2023-07-22] VITALS (12 sets, daily range): BP systolic 118–187; BP diastolic 76–106; PULSE 69–93; RESP 16–22; TEMP 36.4–36.7; O2SAT 93–98; BMI 32.3; BMI 34.2
[2023-07-22] MEDS: ketorolac 30 mg/mL INJ IVP ×2 (06:31→14:32)
[2023-07-22] MEDS: dexamethasone 10 mg/mL INJ IM (06:33)
[2023-07-22] MEDS: morphine 4 mg/mL SDV 1 mL IVP ×2 (06:36→07:55)
[2023-07-22] MEDS: orphenadrine 30 mg/mL Inj 2 mL 60 MG IM (06:39)
--- NOTE | 2023-07-22 07:12 | CTR_ITS ---
PROCEDURE INFORMATION: Exam: CT Lumbar Spine With Contrast Exam date and time: 07/22/2023 7:22 AM Age: 73 years old Clinical indication: Numbness; Prior surgery; Surgery date: 3-7 days post-operative; Surgery type: Lumbar; Additional info: Recent surgery, unable to walk, ? post op infection TECHNIQUE: Imaging protocol: Computed tomography of the lumbar spine with contrast. Radiation optimization: All CT scans at this facility use at least one of these dose optimization techniques: automated exposure control; mA and/or kV adjustment per patient size (includes targeted exams where dose is matched to clinical indication); or iterative reconstruction. Contrast material: OMNI 350; Contrast volume: 100 ml; Contrast route: INTRAVENOUS (IV); COMPARISON: MR lumbar spine wo con* [id number] 06/14/2023 11:33 AM RADIATION DOSE METRICS: Total DLP (mGy-cm): 1053.9 FINDINGS: Bones/joints: There is a 2 mm anterior spondylolisthesis of L3 relative to L4. Vertebral body heights are otherwise preserved. Mineralization is overall within normal limits. There is a biconvex scoliosis of the lumbar spine, dextroconvex centered at L2-L3 with a Rivas angle measuring 14 degrees, levoconvex centered at L5 with a Rivas angle measuring 11 degrees. Multilevel lumbar spondylosis is noted with disc osteophyte, facet arthropathy and uncovertebral spurring. There is prior right L2 and L4 laminotomy. Bubbles of air are noted in the deep soft tissues and within the canal presumably related to recent surgery. Heterogeneous hyperdensity within the right paraspinal soft tissues and deep subcutaneous tissues likely representing hematoma. Infection can not be entirely excluded. No discernible drainable fluid collection is appreciated. There is notable spondylotic canal narrowing at L3-L4. Soft tissues: See above. CT/CT lumbar spine w con [id number] IMPRESSION: Postsurgical and degenerative changes in lumbar spine. Heterogeneous hyperdensity along the surgical tracts with bubbles of air. No discrete drainable fluid collection appreciated. MRI of the lumbar spine with and without intravenous contrast may be performed if there is concern for epidural collection.
--- NOTE | 2023-07-22 07:16 | ED_ITS ---
HPI - Back Pain/Injury 2 General: Chief Complaint: Back Pain/Injury Stated Complaint: BACK PAIN Time Seen by Provider: 07/22/23 06:01 Source: patient Mode of arrival: ambulatory History of Present Illness: 73-year-old male presents to the emergen cy room with complaints of back pain inability to walk. 5 days ago patient had a L3 /4, L4/5 laminectomy and partial facetectomy. Initially postop patient was able to get up and get around and walk and is doing very well 2 days postop he began to have to limit his activity use a walker and more more difficult time getting up and was restriction only getting up to using the restroom. Today he got up he was trying to go to the restroom using a walker he was able to get to the restroom and sat on the toilet but was unable to get up off the toilet and essentially slid to the floor. His was unable to help him stand at that point and EMS was called and he was brought to the emergency room. Patient relates he has not had a bowel movement since his surgery. He has been able to urinate however he has been taking hydrocodone for pain. He is also on warfarin for atrial fibrillation MD elicited complaint: back pain Pertinent past history: prior back pain Onset (ago): day(s) Timing: constant Quality: sharp Exacerbating factors: movement, sitting upright and walking Relieving factors: supine Associated symptoms: Deny abdominal pain, arthralgias, chills, change in bowel habits, difficulty walking, dysuria, fatigue, fecal incontinence, fever(s), hematuria, myalgias, nausea, numbness, syncope, tingling/numbness/burning, urinary frequency, urinary urgency, vomiting or weakness Treatments prior to arrival: prescription analgesics Work related injury: No Review of Systems 2 Const: Denies: fever(s), chills or fatigue Card: Denies: chest pain or syncope Resp: Denies: dyspnea GI: Denies: abdominal pain, nausea, vomiting, fecal incontinence or change in bowel habits : Denies: dysuria, urinary frequency, urinary urgency or hematuria Musc: Denies: neck pain or back pain Skin/Breast: Denies: rash Neuro: Denies: difficulty walking PFS ED 2 PFSH: Medical History Diverticulosis Asymptomatic microscopic hematuria BPH loc w urin obs/LUTS Acute cystitis with hematuria BPH w/o urinary obs/LUTS Gross hematuria Erectile dysfunction due to diseases classified elsewhere Elevated PSA HTN (hypertension) Sleep apnea Smoker Chest pain Atrial fibrillation Gout Hepatitis C Urolithiasis Surgical History Status post laser lithotripsy of ureteral calculus S/P ureteral stent placement S/P cholecystectomy Family History Father , Age 76 Congestive heart failure (CHF) Mother Osteoporosis Social History Smoking and tobacco/nicotine status: current every day tobacco/nicotine user Alcohol intake: current Alcohol intake frequency: few times a month Alcohol type: beer Substance/Drug Use: current Substance/Drug use frequency: daily Marital status: Current occupational status: retired Physical Exam 2 Const: GENERAL APPEARANCE: cooperative and comfortable O RIENTATION/CONSCIOUSNESS: Yes awake, Yes oriented to person, Yes oriented to place and Yes oriented to time HENMT: COMMON NORMALS: normocephalic, atraumatic and hearing grossly normal bilaterally HEAD & SCALP: normocephalic and atraumatic Resp: COMMON NORMALS: normal respiratory effort, No retractions, No use of accessory muscles and clear to auscultation bilaterally AUSCULTATION: clear to auscultation bilaterally Cardio: COMMON NORMALS: regular rate, regular rhythm and No murmurs present (Cardio) RATE: regular rate RHYTHM: regular rhythm GI: COMMON NORMALS: Soft to palpation and No hepatosplenomegaly present A USCULTATION: Yes normoactive bowel sounds PALPATION: Yes Soft to palpation, No Tenderness to palpation present (GI), No Guarding due to palpation present (GI) and Yes No hepatosplenomegaly present Back/Pelvis: OTHER: Unable to elicit deep tendon reflexes at the patellar tendons on the right he has previously had a knee arthroplasty unable to go with all the left. Dorsum plantar flex strength are 5 of 5 slight hyperesthesia on the right leg compared to the left Extremity: COMMON NORMALS: normal to inspection, capillary refill normal, no clubbing, cyanosis or edema, no calf tenderness and no pedal edema Neuro: SENSORIUM/ORIENTATION: Yes oriented to person, Yes oriented to place and Yes oriented to time Skin: COMMON NORMALS: no rashes or lesions noted GENERAL SKIN EXAM: no rashes or lesions noted Course 2 Vital Signs: Vital signs: Vital Signs Temperature 97.5 F L 07/22/23 05:59 Pulse Rate 77 07/22/23 08:32 Respiratory Rate 18 07/22/23 08:32 Blood Pressure 144/90 07/22/23 08:32 Pulse Oximetry 96 07/22/23 08:32 Oxygen Delivery Me thod Nasal Cannula 07/22/23 08:32 Oxygen Flow Rate 2 07/22/23 08:32 MDM - Back Pain/Injury Medical Decision Making Patient continues to have back pain he was given two 4 mg doses of morphine and actually had to put a little bit of oxygen on him because he got sedate however he complained still did not have adequate control of his back pain. We did try to stand and ambulate. He is able to stand at the bed light side but not really ambulate at all required significant amount of help just to stay active and get back on the [facility]. Discussed with Dr. Posey will place in observation for postlaminectomy syndrome. He also did have a mild cystitis but no evidence of urinary retention. He is given a gram Rocephin here. If he did not have his back pain his bladder infection will be treated in outpatient he can start Macrobid tomorrow 100 mg twice daily for a total of [address] Posey that when he is discharged home he can complete the balance of 7 days. Medical Records I reviewed the patient's medical records. Labs I reviewed the patient's lab results. 07/22/23 07:44 07/22/23 07:44 Radiology Impressions Lumbar Spine CT 07/22/23 07:12 IMPRESSION: Postsurgical and degenerative changes in lumbar spine. Heterogeneous hyperdensity along the surgical tracts with bubbles of air. No discrete drainable fluid collection appreciated. MRI of the lumbar spine with and without intravenous contrast may be performed if there is concern for epidural collection. Laboratory Results WBC 9.55 10^3/uL (3.29-11.43) 07/22/23 07:44 RBC 4.08 10^6/uL (3.85-5.65) 07/22/23 07:44 Hgb 11.90 g/dL (11.27-16.99) 07/22/23 07:44 Hct 36.4 % (37-53) L 07/22/23 07:44 MCV 89.2 fl (82-101) 07/22/23 07:44 MCH 29.2 pg (27-33) 07/22/23 07:44 MCHC 32.7 g/dL (30-55) 07/22/23 07:44 RDW 14.2 % (12.1-15.1) 07/22/23 07:44 Plt Count 191 10^3/cmm (157-399) 07/22/23 07:44 MPV 11.0 fL (7.4-10.4) H 07/22/23 07:44 Neut % (Auto) 89.5 % 07/22/23 07:44 Lymph % (Auto) 3.5 % 07/22/23 07:44 [place] % (Auto) 5.8 % 07/22/23 07:44 Eos % (Auto) 0.4 % 07/22/23 07:44 Baso % (Auto) 0.2 % 07/22/23 07:44 Neut # (Auto) 8.55 10^3/uL (1.8-7.7) H 07/22/23 07:44 Lymph # (Auto) 0.3 10^3/uL (0.8-4.8) L 07/22/23 07:44 [place] # (Auto) 0.6 10^3/uL (0.2-0.9) 07/22/23 07:44 Eos # (Auto) 0.0 10^3/uL (0.0-0.8) 07/22/23 07:44 Baso # (Auto) 0.0 10^3/uL (0.0-0.1) 07/22/23 07:44 Nucleated RBC % (auto) 0 % 07/22/23 07:44 Nucleated RBCs # 0.0 /100WBC 07/22/23 07:44 PT 19.90 SECONDS (12.1-14.9) H 07/22/23 07:44 INR 1.63 (0.8-1.2) H 07/22/23 07:44 Sodium 134 mmol/L (136-145) L 07/22/23 07:44 Potassium 3.8 mmol/L (3.5-5.1) 07/22/23 07:44 Chloride 96 mmol/L (98-107) L 07/22/23 07:44 Carbon Dioxide 28 mmol/L (22-29) 07/22/23 07:44 Anion Gap 13.8 (5-19) 07/22/23 07:44 BUN 16 mg/dL (8-23) 07/22/23 07:44 Creatinine 0.7 mg/dL (0.7-1.2) 07/22/23 07:44 GFR Calculation Not Reportable 07/22/23 07:44 Glucose 127 mg/dL (65-115) H 07/22/23 07:44 Calculated Osmolality 281 mOsm/kg (285-295) L 07/22/23 07:44 Calcium 8.4 mg/dL (8.5-10.5) L 07/22/23 07:44 Total Bilirubin 1.0 mg/dL (0.15-1.2) 07/22/23 07:44 AST 24 U/L (0-40) 07/22/23 07:44 ALT 27 U/L (0-41) 07/22/23 07:44 Alkaline Phosphatase 67 U/L (40-130) 07/22/23 07:44 Total Protein 6.1 g/dL (6.6-8.7) L 07/22/23 07:44 Albumin 3.2 g/dL (3.5-5.2) L 07/22/23 07:44 Globulin 2.9 g/dL (1.3-4.6) 07/22/23 07:44 Urine Color Yellow (Yellow) 07/22/23 07:21 Urine Appearance Sl hazy (CLEAR) A 07/22/23 07:21 Urine pH 6.5 (5-7) 07/22/23 07:21 Ur Specific [place] 1.015 (1.005-1.030) 07/22/23 07:21 Urine Protein Trace (Negative) 07/22/23 07:21 Urine Glucose (UA) Norm (Normal) 07/22/23 07:21 Urine Ketones 1+ (Negative) H 07/22/23 07:21 Urine Blood 3+ (Negative) H 07/22/23 07:21 Urine Nitrate Negative (Negative) 07/22/23 07:21 Urine Bilirubin 1+ (Negative) H 07/22/23 07:21 Urine Urobilinogen 1 mg/dL (Negative) H 07/22/23 07:21 Ur Leukocyte Esterase 1+ (Negative) H 07/22/23 07:21 Urine RBC 5-10 /hpf (0-2) H 07/22/23 07:21 Urine WBC 10-15 /hpf (0-5) H 07/22/23 07:21 Ur Squamous Epith Cells 0-4 /hpf (0-5) H 07/22/23 07:21 Amorphous Sediment Not Reportable 07/22/23 07:21 Urine Bacteria 1+ /hpf (NONE) H 07/22/23 07:21 Urine Mucus 1+ /hpf 07/22/23 07:21 All radiology interpretation(s) finalized by discharge Discharge Plan Discharge Patient Disposition: Placed in Observation Clinical Impression: Strain of lumbar region, Post-laminectomy syndrome, Cystitis Coding Level of Care Code ED Director Of Exhibit Development for Radha Jensen
[2023-07-22] MEDS: iohexol 350 mg/mL 500 mL Btl (per mL) IV (07:25)
--- NOTE | 2023-07-22 07:33 | PC.NURSE ---
Nurse applied O2 2L NC due to patient oxygen saturation dropping to high 80s, pt not in an apparent distress and resting in bed, complains of pain 03/07
[2023-07-22 07:50] LABS: Basophils % 0.2 %; Eosinophils % 0.4 %; Hematocrit 36.4 % (37-53); Lymphocytes # 0.3 10^3/uL (0.8-4.8); Lymphocytes % 3.5 %; Mean Corpuscular HGB Conc 32.7 g/dL (30-55); Mean Corpuscular Hemoglobin 29.2 pg (27-33); Mean Corpuscular Volume 89.2 fl (82-101); Monocytes # 0.6 10^3/uL (0.2-0.9); Monocytes % 5.8 %; Neutrophils # 8.55 10^3/uL (1.8-7.7); Neutrophils % 89.5 %; Nucleated Red Blood Cells % 0 %; Platelet Count 191 10^3/cmm (157-399); Red Blood Count 4.08 10^6/uL (3.85-5.65); Red Cell Distribution Width 14.2 % (12.1-15.1); White Blood Count 9.55 10^3/uL (3.29-11.43)
[2023-07-22 08:03] LABS: INR 1.63 (0.8-1.2)
[2023-07-22 08:07] LABS: Protein Urine Trace (Negative); Specific Gravity, Urine 1.015 (1.005-1.030); Urine Appearance SL Hazy (CLEAR); Urine Color Yellow (Yellow); pH Urine 6.5 (5-7)
[2023-07-22 08:08] LABS: Add Urine Culture? Yes; Add Urine Microscopic? YES; Bacteria Urine 1+ /hpf; Bilirubin Urine 1+ (Negative); Blood Urine 3+ (Negative); Glucose Urine UA Norm (Normal); Ketones Urine 1+ (Negative); Leukocyte Esterase Urine 1+ (Negative); Mucus Urine 1+ /hpf; Nitrate Urine Negative (Negative); Squamous Epithelial Cell Urine 0-4 /hpf (0-5); Urobilinogen Urine 1 mg/dL (Negative)
[2023-07-22 08:14] LABS: Alanine Aminotransferase 27 U/L (0-41); Albumin Level 3.2 g/dL (3.5-5.2); Alkaline Phosphatase 67 U/L (40-130); Anion Gap 13.8 (5-19); Aspartate Amino Transferase 24 U/L (0-40); Blood Urea Nitrogen 16 mg/dL (8-23); Calcium 8.4 mg/dL (8.5-10.5); Carbon Dioxide 28 mmol/L (22-29); Chloride 96 mmol/L (98-107); Creatinine Clr Calc Pharmacy 89.1018; Globulin 2.9 g/dL (1.3-4.6); Glucose 127 mg/dL (65-115); Osmolality Calculated 281 mOsm/kg (285-295); Potassium 3.8 mmol/L (3.5-5.1); Sodium 134 mmol/L (136-145); Total Protein 6.1 g/dL (6.6-8.7)
[2023-07-22] MEDS: cefTRIAXone 1,000 MG in sodium chloride 0.9% (plus) 50 ML 100 MG IV (08:25)
--- NOTE | 2023-07-22 08:30 | XRR_ITS ---
PROCEDURE INFORMATION: Exam: XR Chest Exam date and time: 07/22/2023 8:56 AM Age: 73 years old Clinical indication: Dyspnea; Prior surgery; Surgery date: 3-7 days post-operative; Surgery type: Lower back TECHNIQUE: Imaging protocol: Radiologic exam of the chest. Views: 1 view. COMPARISON: MR thoracic spin wo con* [id number] 06/14/2023 11:09 AM FINDINGS: Lungs: A calcified granulomas noted in the lower left lung measuring 3 mm. Pleural spaces: Unremarkable. No pleural effusion. No pneumothorax. Heart/Mediastinum: Unremarkable. No cardiomegaly. Vasculature: The aorta is tortuous and calcified. Bones/joints: Unremarkable. XR/XR chest 1V portable [id number] IMPRESSION: No acute cardiopulmonary disease.
--- NOTE | 2023-07-22 08:35 | PC.NURSE ---
Attempted to ambulate pt with assistance of hydrology technician, gait belt, and walker. Pt walks forward 3 steps and states that the pain is 10/10 and his legs are weak and he thinks he is going to fall. Pt refuses to walk further and states he needs to sit down.
--- NOTE | 2023-07-22 08:57 | PC.NURSE ---
Removed oxygen to trial room air oxygen saturation
--- NOTE | 2023-07-22 09:36 | P.HP_ITS ---
Providers/Chief Complaint 2 Admitting Physician: Giorgi Posey Chief Complaint: BACK PAIN History of Present Illness Ge Dudley is a 73 year old male had lumbar decompression done this past Monday. Patient was doing well for 2 days and then proceeds getting worse pain. Has pain when he is out of bed and stands Review of Systems 2 Const: Denies: fever(s), chills or fatigue Card: Denies: chest pain or syncope Resp: Denies: dyspnea GI: Denies: abdominal pain, nausea, vomiting, fecal incontinence or change in bowel habits : Denies: dysuria, urinary frequency, urinary urgency or hematuria Musc: Denies: neck pain or back pain Skin/Breast: Denies: rash Neuro: Denies: difficulty walking Medications/Allergies Home Medications Medication Instructions Recorded Confirmed Last Taken Type lisinopril 40 mg tablet 40 mg PO DAILY 12/09/19 07/14/23 07/16/23 History aspirin 81 mg tablet,delayed 81 mg PO DAILY 04/15/20 07/17/23 07/16/23 History release (Adult Aspirin Regimen) hydrochlorothiazide 25 mg tablet 12.5 mg PO DAILY Edema 07/31/20 07/17/23 07/17/23 06:00 History metoprolol tartrate 25 mg tablet 25 mg PO DAILY 08/12/20 07/14/23 07/17/23 06:00 History prednisone 10 mg tablet 10 mg PO DAILY PRN Diarrhea 03/29/22 07/14/23 07/10/23 History tizanidine 2 mg capsule 2 mg PO Q8H PRN Diarrhea 03/29/22 07/14/23 07/16/23 History MARIJUANA 1 g inhalation ONCE 05/12/22 07/14/23 07/16/23 History pantoprazole 20 mg tablet,delayed 20 mg PO DAILY 06/21/22 07/14/23 07/17/23 06:00 History release atorvastatin 10 mg tablet 10 mg PO DAILY 08/17/22 07/14/23 07/16/23 History loperamide 2 mg capsule 2 mg PO Q6H PRN Diarrhea 09/26/22 07/14/23 Unknown History warfarin 5 mg tablet 8 mg PO DAILY 11/16/22 07/17/23 07/11/23 History hydrocodone 5 mg-acetaminophen 325 1 - 2 tab PO .Q4-6H #40 tabs 07/17/23 Unknown Rx mg tablet tamsulosin 0.4 mg capsule 0.4 mg PO DAILY 07/17/23 07/17/23 07/16/23 History Allergies Allergy/AdvReac Type Severity Reaction Status Date / Time No Known Allergies Allergy Verified 07/14/23 08:20 PFSH Acute 2 PFSH: Medical History Diverticulosis Asymptomatic microscopic hematuria BPH loc w urin obs/LUTS Acute cystitis with hematuria BPH w/o urinary obs/LUTS Gross hematuria Erectile dysfunction due to diseases classified elsewhere Elevated PSA HTN (hypertension) Sleep apnea Smoker Chest pain Atrial fibrillation Gout Hepatitis C Urolithiasis Surgical History Status post laser lithotripsy of ureteral calculus S/P ureteral stent placement S/P cholecystectomy Family History Father , Age 76 Congestive heart failure (CHF) Mother Osteoporosis Social History Smoking and tobacco/nicotine status: current every day tobacco/nicotine user Alcohol intake: current Alcohol intake frequency: few times a month Alcohol type: beer Substance/Drug Use: current Substance/Drug use frequency: daily Marital status: Current occupational status: retired Vitals/I&O/Wt Last Vital Signs Temp 97.5 F L 07/22/23 05:59 Pulse 77 07/22/23 08:32 Resp 18 07/22/23 08:32 BP 144/90 07/22/23 08:32 Pulse Ox 96 07/22/23 08:32 O2 Del Method Nasal Cannula 07/22/23 08:32 O2 Flow Rate 2 07/22/23 08:32 07/21/23 07/22/23 07/22/23 22:59 06:59 14:59 Intake Total 50 / 50 Balance 50 / 50 Weight last 48 hrs Weight 210 lb Physical Exam 2 Narrative: Has 5-5 strength bilateral lower extremities as well as sensation intact. Data 07/22/23 07:44 07/22/23 07:44 A&P Assessment and plan (1) Status post lumbar laminectomy: Will place him on Decadron 10 mg every 6 hours Pain control Valium for muscle spasms Attestations 2 Medical Necessity Statement*: Pain control Coding Level of Care Code Acute Code for Chg Fwd Diagnoses Status post lumbar laminectomy Z98.890
[2023-07-22] MEDS: dexamethasone 10 mg/mL INJ IVP ×3 (09:58→21:15)
[2023-07-22] MEDS: ceFAZolin 2,000 MG in sodium chloride 0.9% (plus) 50 ML 100 MG IV (09:59)
--- NOTE | 2023-07-22 10:12 | PC.NURSE ---
Put pt back on 2L NC due to desat into 80s
--- NOTE | 2023-07-22 10:42 | PC.NURSE ---
This nurse assumed care of pt at 1030am.
[2023-07-22] MEDS: nitrofurantoin SR (BID) 100 mg Capsule PO ×2 (11:05→18:00)
[2023-07-22] MEDS: lactated ringers 1,000 ML 90 ML IV (11:05)
[2023-07-22] MEDS: magnesium hydroxide 30 mL UDC PO ×2 (11:05→21:23)
[2023-07-22] MEDS: HYDROcodone-acetaminophen 10-325 mg Tablet PO ×2 (11:05→18:01)
--- NOTE | 2023-07-22 16:47 | P.CONIM_ITS ---
Providers/Reason For Consult 2 Consulting Physician/Specialty*: Jannie Reece MD/ Internal Medicine Reason for Consult*: Medical Management. Attending Physician: Ad Posey DO History of Present Illness History of Present Illness Ge Dudley is a 73yo man w/ Paroxysmal Afib, HTN, HLD, b/l Nephrolithiasis, BPH w/ LUTs, LELAND intolerant to CPAP, L-spine decompression on 07/17/2023, who presented to the ED on 07/22/2023 via EMS for intractable back pain, b/l LE weakness. The patient is s/p same day L3-L4, L4-L5 facectomy surgery on 07/17/2023 for L-spine here at [facility]. Post-op, he states that he walked 30-40ft before being discharged. The next day, he walked around and started to experience back pain. It worsened by 07/19, so he called the Orthopedic surgeon's office. He spoke to w/ the Orthopedic surgeon's office 07/21, who recommended relaxing, and not engaging in lifting or walking and to take pain medicine. This AM at 4 O'clock, he went to the bathroom to have a BM, when he felt that his feet no longer functioned. He made it to the bathroom with his walker and sat on the toilet. With his back and legs hurting, he could not get up from the toilet sit, so he slid to the floor and called his to call EMS. In the ED, his vital signs were significant for tachypnea up to 22. He had a wbc of 9.55, hyponatremia of 134, and a UA positive for ketones, and concerning for UTI. CT of L-spine was done that showed a heterogeneous hypodensity along the surgical tracts w/ bubbles of air, but no discrete drainable fluid collection appreciated. An MRI of the L-spine w/ & w/o contrast was recommended if there was any concern for an epidural collection. A CXR was done that showed no acute cardiopulmonary disease. He was given 1L NS bolus, Morphine 4mg IVP x 2 doses, Norflex 60mg IM x 1, Dexamethasone 10mg IM x 1, Toradol 30mg IVP x 1, and Ceftriaxone 1g x 1. He was admitted to the Orthopedic Surgery Service, and the Hospitalist service was consulted for medical management. At the time that the patient was seen, he was quite comfortable and not in visible pain. Review of Systems 2 Const: Denies: fever(s) or chills Eyes: Denies: change in vision ENMT: Reports: nasal discharge (chronic alleviated with benadryl); Denies: ear or mastoid pain or nasal congestion Card: Denies: chest pain, lightheadedness, syncope or pre-syncope Resp: Denies: dyspnea, productive cough or wheezing GI: Reports: hematochezia (when he wipes); Denies: abdominal pain, nausea, vomiting, diarrhea, constipation or melena : Reports: other (brown colored urine); Denies: difficulty urinating, dysuria, urinary frequency, urinary urgency or hematuria Musc: Reports: back pain and other (leg pain); Denies: joint pain (chronic pain and cramps in b/l hands. ) Skin/Breast: Reports: other (crust on his L. elbow); Denies: rash Neuro: Reports: other (no LOC); Denies: headache(s) or dizziness Psych: Denies: anxiety or depression Endo: Denies: cold intolerance or heat intolerance Ashwin/Lymph: Reports: easy bruising (on Warfarin) and easy bleeding (on Warfarin) All/Imm: Denies: food intolerance Medications/Allergies Home Medications Medication Instructions Recorded Confirmed Last Taken Type lisinopril 40 mg tablet 40 mg PO DAILY 12/09/19 07/22/23 07/21/23 History aspirin 81 mg tablet,delayed 81 mg PO DAILY 04/15/20 07/22/23 07/21/23 History release (Adult Aspirin Regimen) hydrochlorothiazide 25 mg tablet 12.5 mg PO DAILY Edema 07/31/20 07/22/23 07/21/23 History metoprolol tartrate 25 mg tablet 12.5 mg PO BID 08/12/20 07/22/23 07/21/23 History tizanidine 2 mg capsule 2 mg PO Q8H PRN Muscle Spasm 03/29/22 07/22/23 07/16/23 History MARIJUANA 1 g inhalation ONCE 05/12/22 07/22/23 07/22/23 History pantoprazole 20 mg tablet,delayed 20 mg PO DAILY 06/21/22 07/22/23 07/21/23 History release atorvastatin 10 mg tablet 10 mg PO DAILY 08/17/22 07/22/23 07/21/23 History loperamide 2 mg capsule 2 mg PO Q6H PRN Diarrhea 09/26/22 07/22/23 Unknown History warfarin 5 mg tablet 8 mg PO DAILY 11/16/22 07/22/23 07/21/23 History hydrocodone 5 mg-acetaminophen 325 1 - 2 tab PO .Q4-6H #40 tabs 07/17/23 07/22/23 07/21/23 Rx mg tablet tamsulosin 0.4 mg capsule 0.4 mg PO DAILY 07/17/23 07/22/23 07/21/23 History warfarin 3 mg tablet 3 mg PO DAILY 07/22/23 07/22/23 07/21/23 History Allergies Allergy/AdvReac Type Severity Reaction Status Date / Time No Known Allergies Allergy Verified 07/14/23 08:20 Current Medications Generic Name Dose Route Start Last Admin Trade Name Freq PRN Reason Stop Dose Admin Hydrocodone Bitart/Acetaminophen 1 - 2 tab 07/22/23 09:25 07/22/23 11:05 Hydrocodone-Acetaminophen 10-325 Mg Tablet PO 2 tab Q4H PRN Administration MODERATE TO SEVERE PAIN Dexamethasone 10 mg 07/22/23 09:30 07/22/23 14:33 Dexamethasone 10 Mg/Ml Inj IVP 10 mg Q6H CLARENCE Administration Lactated Ringer's 1,000 mls @ 90 mls/hr 07/22/23 09:30 07/22/23 11:05 Lactated Ringers IV 90 mls/hr .Q11H7M CLARENCE Administration Ketorolac Tromethamine 30 mg 07/22/23 09:25 07/22/23 14:32 Ketorolac 30 Mg/Ml Inj IVP 30 mg Q6H PRN Administration BREAKTHROUGH PAIN Magnesium Hydroxide 30 ml 07/22/23 09:25 07/22/23 11:05 Magnesium Hydroxide 30 Ml Udc PO 30 ml Q4H PRN Administration Constipation/indigestion Nitrofurantoin Macrocrystals 100 mg 07/22/23 10:37 07/22/23 11:05 Nitrofurantoin Sr (Bid) 100 Mg Capsule PO 07/28/23 22:00 100 mg BID CLARENCE Administration PFSH Acute 2 PFSH: Medical History Diverticulosis Asymptomatic microscopic hematuria BPH loc w urin obs/LUTS Acute cystitis with hematuria BPH w/o urinary obs/LUTS Gross hematuria Erectile dysfunction due to diseases classified elsewhere Elevated PSA HTN (hypertension) Sleep apnea Smoker Chest pain Atrial fibrillation Gout Hepatitis C Urolithiasis Surgical History Status post laser lithotripsy of ureteral calculus S/P ureteral stent placement S/P cholecystectomy Family History Father , Age 76 Congestive heart failure (CHF) Mother Osteoporosis Social History Smoking and tobacco/nicotine status: current every day tobacco/nicotine user Alcohol intake: current Alcohol intake frequency: few times a month Alcohol type: beer Substance/Drug Use: current Substance/Drug use frequency: daily Marital status: Current occupational status: retired Vitals/I&O/Wt Last Vital Signs Temp 98.0 F 07/22/23 16:00 Pulse 72 07/22/23 16:00 Resp 16 07/22/23 16:00 BP 118/76 07/22/23 16:00 Pulse Ox 94 07/22/23 16:00 O2 Del Method Room Air 07/22/23 16:00 O2 Flow Rate 2 07/22/23 08:32 07/22/23 07/22/23 07/22/23 06:59 14:59 22:59 Intake Total 220 / 220 Balance 220 / 220 Weight last 48 hrs Weight 99.246 kg Weight 95.254 kg Physical Exam 2 Const: GENERAL APPEARANCE: cooperative and comfortable O RIENTATION/CONSCIOUSNESS: Yes awake, Yes oriented to person, Yes oriented to place and Yes oriented to time HENMT: COMMON NORMALS: normocephalic, atraumatic, external ears normal and Normal external nose present HEAD & SCALP: normocephalic and atraumatic N OSE: Normal external nose present EXTERNAL EAR: Yes external ears normal M OUTH: Normal oral and palatal mucosa present THROAT: posterior oropharynx normal Eye: COMMON NORMALS: Equal, round and reactive pupils present and conjunctivae normal CONJUNCTIVA: Yes conjunctivae normal PUPIL: Yes Equal, round and reactive pupils present EOM: No EOM abnormal Neck/C-Spine: COMMON NORMALS: Thyroid normal GENERAL: Yes normal visual inspection and Yes trachea midline THYROID: Thyroid normal CAROTIDS: No bruit Lymph: LYMPHATIC: No lymphadenopathy Resp: OTHER: CTAB w/ no w/r/r Cardio: OTHER: RRR, no rubs, gallops, clicks. 3/6 systolic murmur in the R. 2nd intercostal space. No carotid bruit. 2+ radial and DP pulses. GI: OTHER: BS+, nontender, nondistended, no guarding, no rigidity, no rebound tenderness Extremity: OTHER: no clubbing, no cyanosis, no pedal edema Neuro: SENSORIUM/ORIENTATION: Yes oriented to person, Yes oriented to place and Yes oriented to time CRANIAL NERVES: Yes CN normal except as noted S PEECH: speech normal SENSORY EXAM: No sensory level loss detected MOTOR EXAM: 5/5 motor strength present throughout and Normal motor muscle tone present throughout Psych: COMMON NORMALS: Normal thought process present and speech normal A PPEARANCE: Yes grossly normal ATTITUDE: Yes calm and Yes engaged A CTIVITY/MOTOR BEHAVIOR: Yes appropriate eye contact SPEECH: Yes normal speech MOOD & AFFECT: Yes euthymic mood THOUGHT PROCESS: Normal thought process present THOUGHT CONTENT: Yes Normal thought content present A TTENTION/CONCENTRATION: Yes attention grossly intact MEMORY/COGNITION: Yes memory grossly intact Skin: NARRATIVE SKIN EXAM: lower back midline incision wound, c/d/i. Data 07/22/23 07:44 07/22/23 07:44 A&P Assessment and plan (1) Acute cystitis with hematuria: (2) BPH loc w urin obs/LUTS: (3) Atrial fibrillation: Qualifiers: Atrial fibrillation type: paroxysmal Qualified Code(s): I48.0 - Paroxysmal atrial fibrillation (4) HTN (hypertension): Qualifiers: Hypertension type: primary hypertension Qualified Code(s): I10 - Essential (primary) hypertension (5) Elevated PSA: (6) Acute back pain less than 4 weeks duration: Plan Ge Dudley is a 73yo man w/ Paroxysmal Afib, HTN, HLD, b/l Nephrolithiasis, BPH w/ LUTs, LELAND intolerant to CPAP, L-spine decompression on 07/17/2023, who presented to the ED on 07/22/2023 via EMS for intractable back pain, b/l LE weakness. In the ED, his vital signs were significant for tachypnea up to 22. He had a wbc of 9.55, hyponatremia of 134, and a UA positive for ketones, and concerning for UTI. CT of L-spine was done that showed a heterogeneous hypodensity along the surgical tracts w/ bubbles of air, but no discrete drainable fluid collection appreciated. An MRI of the L-spine w/ & w/o contrast was recommended if there was any concern for an epidural collection. A CXR was done that showed no acute cardiopulmonary disease. He was given 1L NS bolus, Morphine 4mg IVP x 2 doses, Norflex 60mg IM x 1, Dexamethasone 10mg IM x 1, Toradol 30mg IVP x 1, and Ceftriaxone 1g x 1. He was admitted to the Orthopedic Surgery Service, and the Hospitalist service was consulted for medical management. At the time that the patient was seen, he was quite comfortable and not in visible pain. #Back pain due to L3-L4, L4-L5 facectomy: #B/l LE weakness and physical deconditioning. - Per Ortho, Dexamethasone 10mg q6h, Pain control w/ opiates, & diazepam/tizanidine for muscle spasms - Monitor blood glucose. - Will need PT/OT. #Acute Cystitis: F/u UCx. Continue Ceftriaxone #Afib: Ordered EKG. Place on telemetry #HTN #HLD - Aspirin, Atorvastatin, Lisinopril resumed. Will hold HCTZ gildardo in the setting of early hyponatremia. #Hyponatremia: D/c'ed the LR and started NS #LELAND intolerant to CPAP; He says that [facility], but cannot [facility]. #b/l Nephrolothiasis #BPH w/ LUTs #Elevated PSA - Managed by Urology. - On Tamsulosin #Tobacco use d/o: He rolls his own cigarrettes and buys his tobacco by the pound. - Nicotine patch ordered #Anxiety/Depression: He smokes 1/2g to 1g of Marijuana daily for this. #Treated for Hep C in 2004 and 2005 DVT ppx: SCD. Will discuss anticoagulation prophylaxis w/ Orthopedic surgery. Coding Level of Care Code 39012 Diagnoses Acute cystitis with hematuria N30.01 BPH loc w urin obs/LUTS N40.1 Paroxysmal atrial fibrillation I48.0 Atrial fibrillation type: paroxysmal Primary hypertension I10 Hypertension type: primary hypertension Elevated PSA R97.20 Acute back pain less than 4 weeks duration M54.9 Time Spent (min) 81 Comment Time was spent on chart/lab/image review, patient interview/exam, plan formulation.
[2023-07-22] MEDS: tizanidine 4 mg Tablet 2 MG PO (18:00)
[2023-07-22] MEDS: sodium chloride 0.9% 1,000 ML 75 ML IV (18:00)
[2023-07-22] MEDS: docusate sodium 100 mg Capsule PO (18:01)
--- NOTE | 2023-07-22 18:11 | ECG_ITS ---
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 Measurements Intervals [place] Rate: 80 P: 86 ME: 153 QRS: 31 QRSD: 90 T: 33 QT: 359 QTc: 415 Interpretive Statements SINUS RHYTHM Compared to ECG 01/18/2019 11:28:27 Sinus bradycardia no longer present Electronically Signed On 07-23-2023 21:01:01 LURER by German Rucker M.D. [email or web address] [email or web address]/store/[id number]
[2023-07-22] MEDS: morphine 4 mg/mL SDV 1 mL 2 MG IVP (21:14)
[2023-07-23] VITALS (9 sets, daily range): BP systolic 127–154; BP diastolic 76–89; PULSE 61–89; RESP 16–18; TEMP 36.5–37; O2SAT 94–96
[2023-07-23 02:59] LABS: Basophils % 0.1 %; Hematocrit 35.1 % (37-53); Lymphocytes # 0.3 10^3/uL (0.8-4.8); Lymphocytes % 3.6 %; Mean Corpuscular HGB Conc 32.5 g/dL (30-55); Mean Corpuscular Volume 89.3 fl (82-101); Mean Platelet Volume 11.2 fL (7.4-10.4); Monocytes # 0.3 10^3/uL (0.2-0.9); Monocytes % 3.5 %; Neutrophils # 8.12 10^3/uL (1.8-7.7); Neutrophils % 92.6 %; Nucleated Red Blood Cells % 0 %; Platelet Count 203 10^3/cmm (157-399); Red Blood Count 3.93 10^6/uL (3.85-5.65); Red Cell Distribution Width 14.1 % (12.1-15.1); White Blood Count 8.78 10^3/uL (3.29-11.43)
[2023-07-23 03:23] LABS: Alanine Aminotransferase 27 U/L (0-41); Albumin Level 3.3 g/dL (3.5-5.2); Alkaline Phosphatase 62 U/L (40-130); Anion Gap 10.1 (5-19); Aspartate Amino Transferase 23 U/L (0-40); Blood Urea Nitrogen 27 mg/dL (8-23); Calcium 8.7 mg/dL (8.5-10.5); Carbon Dioxide 28 mmol/L (22-29); Chloride 98 mmol/L (98-107); Creatinine Clr Calc Pharmacy 90.9315; Globulin 2.7 g/dL (1.3-4.6); Glucose 164 mg/dL (65-115); Magnesium 2.4 mg/dL (1.7-2.3); Osmolality Calculated 283 mOsm/kg (285-295); Phosphorus 2.2 mg/dL (2.5-4.5); Potassium 4.1 mmol/L (3.5-5.1); Sodium 132 mmol/L (136-145); Total Bilirubin 0.5 mg/dL (0.15-1.2)
[2023-07-23] MEDS: dexamethasone 10 mg/mL INJ IVP ×4 (03:56→22:08)
[2023-07-23] MEDS: ketorolac 30 mg/mL INJ IVP (06:02)
[2023-07-23] MEDS: cefTRIAXone 1,000 MG in sodium chloride 0.9% (plus) 50 ML 100 MG IV (08:46)
[2023-07-23] MEDS: warfarin 5 mg Tablet PO (08:49)
[2023-07-23] MEDS: nicotine 14 mg Patch 1 PATCH TRANSDERMA (08:49)
[2023-07-23] MEDS: docusate sodium 100 mg Capsule PO ×2 (08:50→17:15)
[2023-07-23] MEDS: aspirin 81 mg EC Tablet PO (08:50)
[2023-07-23] MEDS: tamsulosin 0.4 mg Capsule 0.400000000000000022 MG PO (08:50)
[2023-07-23] MEDS: warfarin 3 mg Tablet PO (08:50)
[2023-07-23] MEDS: tizanidine 4 mg Tablet 2 MG PO ×2 (08:50→17:14)
[2023-07-23] MEDS: metoprolol tartrate 25 mg Tablet PO (08:50)
[2023-07-23] MEDS: pantoprazole DR 40 mg Tablet PO (08:51)
[2023-07-23] MEDS: lisinopril 20 mg Tablet 40 MG PO (08:51)
[2023-07-23] MEDS: nitrofurantoin SR (BID) 100 mg Capsule PO ×2 (08:51→17:14)
[2023-07-23] MEDS: HYDROcodone-acetaminophen 10-325 mg Tablet PO ×3 (08:51→23:10)
[2023-07-23] MEDS: atorvastatin 40 mg Tablet 20 MG PO (08:51)
--- NOTE | 2023-07-23 09:47 | P.PN_ITS ---
Subjective 2 Subjective: He had 2 hard BMs this AM. He had R. sided chest pain prior to coming to the hospital. His EKG yesterday evening looks ok. He had another episode of chest pain this morning. He denies palpitations, SOB, dizziness, light headedness, abdominal pain, n/v, diaphoresis. He states that he has a hx of rib fracture in the area of his chest pain, but those rib fractures occurred in the 1970s and 1980s. He is wheezing mildly bilaterally on exam. Give prema x 1. He tells me that he has smoked for ~60yrs Vitals/I&O/Wt Last Vital Signs Temp 97.8 F 07/23/23 08:00 Pulse 74 07/23/23 08:00 Resp 18 07/23/23 08:00 BP 144/89 07/23/23 08:00 Pulse Ox 94 07/23/23 08:00 O2 Del Method Room Air 07/23/23 08:00 O2 Flow Rate 2 07/22/23 08:32 07/22/23 07/23/23 07/23/23 22:59 06:59 14:59 Intake Total 574.5 / 794.5 1000 / 1794.5 530 / 530 Output Total 300 / 300 200 / 500 200 / 200 Balance 274.5 / 494.5 800 / 1294.5 330 / 330 Weight last 48 hrs Weight 103.618 kg Weight 99.246 kg Weight 95.254 kg Physical Exam 2 Const: GENERAL APPEARANCE: cooperative and comfortable O RIENTATION/CONSCIOUSNESS: Yes awake, Yes oriented to person, Yes oriented to place and Yes oriented to time HENMT: COMMON NORMALS: normocephalic, atraumatic, external ears normal and Normal external nose present HEAD & SCALP: normocephalic and atraumatic N OSE: Normal external nose present EXTERNAL EAR: Yes external ears normal M OUTH: Normal oral and palatal mucosa present THROAT: posterior oropharynx normal Eye: COMMON NORMALS: Equal, round and reactive pupils present and conjunctivae normal CONJUNCTIVA: Yes conjunctivae normal PUPIL: Yes Equal, round and reactive pupils present EOM: No EOM abnormal Neck/C-Spine: COMMON NORMALS: Thyroid normal GENERAL: Yes normal visual inspection and Yes trachea midline THYROID: Thyroid normal CAROTIDS: No bruit Lymph: LYMPHATIC: No lymphadenopathy Resp: OTHER: mild b/l expiratory wheezes in the mid to lower lung field. Cardio: OTHER: RRR, no rubs, gallops, clicks. 3/6 systolic murmur in the R. 2nd intercostal space. No carotid bruit. 2+ radial and DP pulses. GI: OTHER: BS+, nontender, nondistended, no guarding, no rigidity, no rebound tenderness Extremity: OTHER: no clubbing, no cyanosis, no pedal edema Neuro: SENSORIUM/ORIENTATION: Yes oriented to person, Yes oriented to place and Yes oriented to time CRANIAL NERVES: Yes CN normal except as noted S PEECH: speech normal SENSORY EXAM: No sensory level loss detected MOTOR EXAM: 5/5 motor strength present throughout and Normal motor muscle tone present throughout Psych: COMMON NORMALS: Normal thought process present and speech normal A PPEARANCE: Yes grossly normal ATTITUDE: Yes calm and Yes engaged A CTIVITY/MOTOR BEHAVIOR: Yes appropriate eye contact SPEECH: Yes normal speech MOOD & AFFECT: Yes euthymic mood THOUGHT PROCESS: Normal thought process present THOUGHT CONTENT: Yes Normal thought content present A TTENTION/CONCENTRATION: Yes attention grossly intact MEMORY/COGNITION: Yes memory grossly intact Skin: NARRATIVE SKIN EXAM: lower back midline incision wound, c/d/i. Data 07/23/23 02:31 07/23/23 02:31 Micro: Microbiology 07/22/23 07:21 Urine Culture - Preliminary Urine,Clean Catch A&P Assessment and plan (1) Acute cystitis with hematuria: (2) BPH loc w urin obs/LUTS: (3) Atrial fibrillation: Qualifiers: Atrial fibrillation type: paroxysmal Qualified Code(s): I48.0 - Paroxysmal atrial fibrillation (4) HTN (hypertension): Qualifiers: Hypertension type: primary hypertension Qualified Code(s): I10 - Essential (primary) hypertension (5) Elevated PSA: (6) Acute back pain less than 4 weeks duration: Plan Ge Dudley is a 73yo man w/ Paroxysmal Afib, HTN, HLD, b/l Nephrolithiasis, BPH w/ LUTs, LELAND intolerant to CPAP, L-spine decompression on 07/17/2023, who presented to the ED on 07/22/2023 via EMS for intractable back pain, b/l LE weakness. In the ED, his vital signs were significant for tachypnea up to 22. He had a wbc of 9.55, hyponatremia of 134, and a UA positive for ketones, and concerning for UTI. CT of L-spine was done that showed a heterogeneous hypodensity along the surgical tracts w/ bubbles of air, but no discrete drainable fluid collection appreciated. An MRI of the L-spine w/ & w/o contrast was recommended if there was any concern for an epidural collection. A CXR was done that showed no acute cardiopulmonary disease. He was given 1L NS bolus, Morphine 4mg IVP x 2 doses, Norflex 60mg IM x 1, Dexamethasone 10mg IM x 1, Toradol 30mg IVP x 1, and Ceftriaxone 1g x 1. He was admitted to the Orthopedic Surgery Service, and the Hospitalist service was consulted for medical management. At the time that the patient was seen, he was quite comfortable and not in visible pain. #R. sided chest pain: Atypical in nature. EKG shows NSR w/ occasional supraventricular premature complexes. Trop T minimally elevated. RUQ US ordered shows cholecystectomy, hepatomegaly and hepatic steatosis. Consider stress test in or outpatient. Made patient NPO after midnight. #Back pain due to L3-L4, L4-L5 facectomy: #B/l LE weakness and physical deconditioning. - Per Ortho, Dexamethasone 10mg q6h, Pain control w/ opiates, & diazepam/tizanidine for muscle spasms - Monitor blood glucose. - PT/OT ordred. #Acute Cystitis: F/u UCx. Continue Ceftriaxone #Afib: Ordered EKG. Place on telemetry #HTN #HLD - Aspirin, Atorvastatin, Lisinopril resumed. Will hold HCTZ gildardo in the setting of early hyponatremia. #Hyponatremia: D/c'ed the LR and started NS #LELAND intolerant to CPAP; He says that he has a [facility], but cannot tolerate it. #b/l Nephrolothiasis #BPH w/ LUTs #Elevated PSA - Managed by Urology. - On Tamsulosin #Tobacco use d/o: He rolls his own cigarrettes and buys his tobacco by the pound. Has smoked for ~60yrs. - Nicotine patch ordered #Anxiety/Depression: He smokes 1/2g to 1g of Marijuana daily for this. #Constipation: Ordered Lactulose 30g x 1. #Treated for Hep C in 2004 and 2005 DVT ppx: SCD. Will discuss anticoagulation prophylaxis w/ Orthopedic surgery. Attestations 2 Medical Necessity Statement*: Patient remains hospitalized for his weakness and back pain. Coding Level of Care Code 40815 Diagnoses Acute cystitis with hematuria N30.01 BPH loc w urin obs/LUTS N40.1 Paroxysmal atrial fibrillation I48.0 Atrial fibrillation type: paroxysmal Primary hypertension I10 Hypertension type: primary hypertension Elevated PSA R97.20 Acute back pain less than 4 weeks duration M54.9
--- NOTE | 2023-07-23 11:11 | USR_ITS ---
PROCEDURE INFORMATION: Exam: US Abdomen, Limited; Right Upper Quadrant Exam date and time: 07/23/2023 12:16 PM Age: 73 years old Clinical indication: Abdominal pain; Localized; Right upper quadrant (ruq); Prior surgery; Surgery date: 6+ months; Surgery type: Gb removed; Additional info: Ruq pain, right around the ribs. TECHNIQUE: Imaging protocol: Real time ultrasound of the abdomen with image documentation. Limited exam focused on the right upper quadrant. COMPARISON: CT abdomen pelvis wo/w [id number] 01/16/2019 9:26 AM FINDINGS: Liver: Hepatomegaly liver span is 19 cm No masses. Hepatic steatosis. Gallbladder: Cholecystectomy Biliary ducts: Normal. No stones. No dilation. Common bile duct measures 3 mm Pancreas: Incompletely visible due to bowel gas. Right kidney: Lower pole right renal cyst 1.8 cm x 1.8 cm x 2 cm. A 2nd cyst is seen 1.7 cm x 1.3 cm x 0.8 cm, 3rd cyst is present 1.6 cm x 1.7 cm x 1.5 cm No mass. No hydronephrosis. Right kidney measures 10.3 cm x 5.8 cm x 4.4 cm US/US abdomen limited [id number] IMPRESSION: 1. Hepatomegaly, hepatic steatosis 2. Multiple benign right renal cyst 3. Cholecystectomy 4. Otherwise negative examination. 5. Pancreas is not visible due to bowel gas
--- NOTE | 2023-07-23 11:19 | ECG_ITS ---
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 Measurements Intervals [place] Rate: 67 P: 59 NH: 149 QRS: 43 QRSD: 82 T: 47 QT: 385 QTc: 409 Interpretive Statements SINUS RHYTHM WITH OCCASIONAL SUPRAVENTRICULAR PREMATURE COMPLEXES Compared to ECG 07/22/2023 18:11:54 No significant changes Electronically Signed On 07-23-2023 20:59:16 GRAVEL TRUCK DRIVER by German Rucker M.D. [id number]
[2023-07-23] MEDS: lactulose oral liq 20 gm/30 mL UDC 30 GM PO (11:27)
[2023-07-23] MEDS: enoxaparin 100 mg/mL Syringe SUBCUT ×2 (11:27→22:07)
--- NOTE | 2023-07-23 11:42 | P.PN_ITS ---
Subjective 2 Subjective: Patient seen once this time pain is controlled while in bed. However when he gets up to walk he has pain and has to lean forward he says to walk Vitals/I&O/Wt Last Vital Signs Temp 97.8 F 07/23/23 11:33 Pulse 68 07/23/23 11:33 Resp 18 07/23/23 11:33 BP 154/88 07/23/23 11:33 Pulse Ox 95 07/23/23 11:33 O2 Del Method Room Air 07/23/23 11:33 O2 Flow Rate 2 07/22/23 08:32 07/22/23 07/23/23 07/23/23 22:59 06:59 14:59 Intake Total 574.5 / 794.5 1000 / 1794.5 530 / 530 Output Total 300 / 300 200 / 500 200 / 200 Balance 274.5 / 494.5 800 / 1294.5 330 / 330 Weight last 48 hrs Weight 228 lb 7 oz Weight 218 lb 12.8 oz Weight 210 lb Physical Exam 2 Narrative: 5 5 strength in lower extremities sensat ion intact Data 07/23/23 02:31 07/23/23 02:31 Micro: Microbiology 07/22/23 07:21 Urine Culture - Preliminary Urine,Clean Catch A&P Assessment and plan (1) Status post lumbar laminectomy: Work with physical therapy Continue pain control Attestations 2 Medical Necessity Statement*: Pain control Coding Level of Care Code Acute Code for Chg Fwd Diagnoses Status post lumbar laminectomy Z98.890
[2023-07-23] MEDS: ipratropium-albuterol 3 mL Neb INHALATION (11:54)
[2023-07-23 14:50] LABS: Troponin(5th) Baseline 17 ng/L (0-15)
[2023-07-23 16:23] LABS: Troponin 5 2HR 18.32 ng/L (0-15); Troponin 5 2HR Delta 1.32 ABS# (0-10)
[2023-07-23 20:56] LABS: Troponin 5 6HR 18.78 ng/L (0-15); Troponin 5 6HR Delta 1.78 ng/L (0-12)
[2023-07-24] VITALS (11 sets, daily range): BP systolic 148–178; BP diastolic 82–94; PULSE 59–81; RESP 16–22; TEMP 36.3–37.1; O2SAT 92–95
[2023-07-24 04:04] LABS: Hematocrit 33.4 % (37-53); Lymphocytes # 0.4 10^3/uL (0.8-4.8); Lymphocytes % 3.9 %; Mean Corpuscular Hemoglobin 28.8 pg (27-33); Mean Corpuscular Volume 89.8 fl (82-101); Mean Platelet Volume 11.7 fL (7.4-10.4); Monocytes # 0.3 10^3/uL (0.2-0.9); Monocytes % 3.4 %; Neutrophils # 8.93 10^3/uL (1.8-7.7); Neutrophils % 91.9 %; Nucleated Red Blood Cells % 0 %; Platelet Count 216 10^3/cmm (157-399); Red Blood Count 3.72 10^6/uL (3.85-5.65); Red Cell Distribution Width 14.3 % (12.1-15.1); White Blood Count 9.72 10^3/uL (3.29-11.43)
[2023-07-24 04:14] LABS: INR 1.69 (0.8-1.2)
[2023-07-24 04:16] LABS: Partial Thromboplastin Time 61.7 SECONDS (23.9-36.7)
[2023-07-24 04:19] LABS: Alanine Aminotransferase 32 U/L (0-41); Albumin Level 3.1 g/dL (3.5-5.2); Alkaline Phosphatase 57 U/L (40-130); Anion Gap 12.5 (5-19); Aspartate Amino Transferase 33 U/L (0-40); Blood Urea Nitrogen 35 mg/dL (8-23); Calcium 8.5 mg/dL (8.5-10.5); Carbon Dioxide 27 mmol/L (22-29); Chloride 105 mmol/L (98-107); Creatinine Clr Calc Pharmacy 92.9353; Globulin 2.6 g/dL (1.3-4.6); Glucose 146 mg/dL (65-115); Magnesium 2.3 mg/dL (1.7-2.3); Osmolality Calculated 301 mOsm/kg (285-295); Potassium 4.5 mmol/L (3.5-5.1); Sodium 140 mmol/L (136-145); Total Bilirubin 0.5 mg/dL (0.15-1.2); Total Protein 5.7 g/dL (6.6-8.7)
[2023-07-24] MEDS: HYDROcodone-acetaminophen 10-325 mg Tablet PO ×4 (04:19→19:45)
[2023-07-24] MEDS: dexamethasone 10 mg/mL INJ IVP ×4 (04:20→20:50)
[2023-07-24] MEDS: ketorolac 30 mg/mL INJ IVP ×2 (06:00→11:52)
[2023-07-24] MEDS: tizanidine 4 mg Tablet 2 MG PO ×2 (06:01→19:46)
--- NOTE | 2023-07-24 08:06 | USCV_ITS ---
Ge Dudley Age: 73 Gender: M : 1950 Exam Date: 07/24/2023 14:35 Ordering Phys: Arturo Coker MD Technologist: Exam Location: [facility] – [place] Indication: pedal edema sob BP: 169 / 90 HR: 0 Rhythm: Sinus Technical Quality: Adequate MEASUREMENTS (Male / Female) Normal Values 2D ECHO LA Diameter 3.3 cm M-MODE MV E Point Septal Separation 1.7 cm DOPPLER MV Area PHT 3.9 cm squared Mitral E to A Ratio 1.1 TR Peak Velocity 154.0 cm/s TR Peak Gradient 9.5 mmHg TV Peak E Velocity 68.0 cm/s PV Peak Velocity 128.0 cm/s FINDINGS Left Ventricle Left ventricle is normal in size. LV systolic function is normal with EF of 55 to 60%. No regional wall motion abnormalities. Right Ventricle Normal size and function Right Atrium Normal in size Left Atrium Normal in size Mitral Valve Grossly normal. Mild mild regurgitation Aortic Valve Not well visualized. No significant stenosis. Tricuspid Valve Trace tricuspid regurgitation. Insufficient TR jet to calculate RVSP. Pulmonic Valve Not well visualized Pericardium Not well visualized Aorta Mildly dilated the diameter of 3.5 cm. IVC Not well visualized CONCLUSIONS Technically limited quality echocardiogram because of poor ultrasonic windows. LV systolic function is normal with EF of 55 to 60%. Mild mitral regurgitation. Trace tricuspid regurgitation Mildly dilated ascending aorta with diameter of 3.5 cm. No comparison studies are available. Eh Campos MD (Electronically Signed) Final Date: 24 July 2023 17:23 S
--- NOTE | 2023-07-24 09:01 | P.PN_ITS ---
Subjective 2 Subjective: Patient was doing well yesterday walked significant distance and then today his back pain is worse again. Vitals/I&O/Wt Last Vital Signs Temp 98.1 F 07/24/23 07:10 Pulse 69 07/24/23 08:14 Resp 16 07/24/23 08:14 BP 152/87 07/24/23 07:10 Pulse Ox 95 07/24/23 08:14 O2 Del Method Room Air 07/24/23 08:14 O2 Flow Rate 2 07/22/23 08:32 07/23/23 07/24/23 07/24/23 22:59 06:59 14:59 Intake Total 240 / 1250 Output Total 650 / 850 Balance 240 / 1050 -650 / 400 Weight last 48 hrs Weight 233 lb 3.2 oz Weight 228 lb 7 oz Weight 218 lb 12.8 oz Physical Exam 2 Narrative: Patient laying in bed complaining of right-sided pain. Data 07/24/23 02:56 07/24/23 02:56 Micro: Microbiology 07/22/23 07:21 Urine Culture - Preliminary Urine,Clean Catch A&P Assessment and plan (1) Status post lumbar laminectomy: Patient was doing well yesterday however today has significant pain in his back feels like he overdid it. At this point will try to get his pain under control possibly with physical therapy this afternoon. As well as get a case management involved for shelter placement potentially. Attestations 2 Medical Necessity Statement*: Pain control Coding Level of Care Code Acute Code for Chg Fwd Diagnoses Status post lumbar laminectomy Z98.890
--- NOTE | 2023-07-24 09:08 | PC.SOCIAL ---
IMM Update pg 2 of IMM updated and reviewed w/ patient. Copy provided and copy dated, initialed and placed in chart.
[2023-07-24] MEDS: morphine 4 mg/mL SDV 1 mL 2 MG IVP ×3 (09:45→20:48)
[2023-07-24] MEDS: nicotine 14 mg Patch 1 PATCH TRANSDERMA (09:48)
[2023-07-24] MEDS: cefTRIAXone 1,000 MG in sodium chloride 0.9% (plus) 50 ML 100 MG IV (09:48)
[2023-07-24] MEDS: tamsulosin 0.4 mg Capsule 0.400000000000000022 MG PO (09:49)
[2023-07-24] MEDS: atorvastatin 40 mg Tablet 20 MG PO (09:49)
[2023-07-24] MEDS: lisinopril 20 mg Tablet 40 MG PO (09:49)
[2023-07-24] MEDS: pantoprazole DR 40 mg Tablet PO (09:49)
[2023-07-24] MEDS: docusate sodium 100 mg Capsule PO ×2 (09:50→17:56)
[2023-07-24] MEDS: metoprolol tartrate 25 mg Tablet PO (09:50)
[2023-07-24] MEDS: warfarin 3 mg Tablet PO (09:50)
[2023-07-24] MEDS: aspirin 81 mg EC Tablet PO (09:50)
[2023-07-24] MEDS: warfarin 5 mg Tablet PO (09:50)
[2023-07-24 09:59] LABS: Troponin(5th) Baseline 21 ng/L (0-15)
--- NOTE | 2023-07-24 10:41 | PC.CHAP ---
Pastoral Care Encounter/Spiritual Assessment Type of Contact [] Declined associate designer visit [] Patient/Family/Request visit [] Outpatient visit [] Follow-up visit [] Physician referral [] Code/Alert [x] Routine visit [] Staff referral [] Actively dying [] Patient sleeping [] Family support [] [] Out of room [] Palliative care [] [] Receiving care in room [] Pre-surgical visit [] Trauma [] Long length of stay [] ICU visit [] Other: Relational/Emotional Strength [] Patient feels connected with others/family/visitors/staff [] Distress [] Loneliness/isolation [] Abandonment Spirituality of Patient [x] Person of Dasia [] Attends Mandaeism of their Dasia [] Believes in Prayer [] Reads Bible or Hinduism materials [] There are Spiritual issues to be addressed Mechanical Assembly Interventions [] Prayer [x] Active listening [] Non-anxious presence [] Spiritual/emotional support [] Crisis/trauma care [] Spiritual counseling [] Bereavement support [] Provided bereavement packet [] Provided Bible/devotional materials [] Provided toy/stuffed animal, coloring book to patient or family member [] Provided Communion [] Anointing/Jerome [] Salvation [x] Completed spiritual assessment [] Other: Impact on Illness or Injury [] Angry [] Fearful [] Anxious [] Often cries [] Exhaustion [] Unable to work [] Unable to attend samaritan [] Unable to walk/stand [] Unable to read [] Unable to drive [] Unable to eat/drink [] Unable to sleep [] Unable to be with family [] Patient intubated [] Other: Summary patient had lot of back pain. did not want prayer Time spent with patient 10 min.
[2023-07-24] MEDS: enoxaparin 100 mg/mL Syringe SUBCUT ×2 (11:51→22:21)
[2023-07-24 11:52] LABS: Troponin 5 2HR 23.83 ng/L (0-15); Troponin 5 2HR Delta 2.83 ABS# (0-10)
--- NOTE | 2023-07-24 12:39 | P.PN_ITS ---
Subjective 2 Subjective: Patient was seen this morning, he tells me that overnight there was concerns that he got too much pain medication, so he has not received any pain medication this morning he has severe back pain, currently he is complaining also of right- sided chest pain, no shortness of breath no lightheadedness, no dizziness, denies a history of CAD Vitals/I&O/Wt Last Vital Signs Temp 97.8 F 07/24/23 12:00 Pulse 77 07/24/23 12:00 Resp 20 H 07/24/23 12:00 BP 171/82 07/24/23 12:00 Pulse Ox 92 07/24/23 12:00 O2 Del Method Room Air 07/24/23 12:00 O2 Flow Rate 2 07/22/23 08:32 07/23/23 07/24/23 07/24/23 22:59 06:59 14:59 Intake Total 240 / 1250 530 / 530 Output Total 650 / 850 300 / 300 Balance 240 / 1050 -650 / 400 230 / 230 Weight last 48 hrs Weight 105.778 kg Weight 103.618 kg Physical Exam 2 Const: COMMON NORMALS: no acute distress and patient oriented x3 Resp: COMMON NORMALS: normal respiratory effort, No retractions, No use of accessory muscles and clear to auscultation bilaterally AUSCULTATION: clear to auscultation bilaterally Cardio: COMMON NORMALS: regular rate, regular rhythm, S1 normal heart sound present and S2 normal heart sound present RATE: regular rate RHYTHM: r egular rhythm HEART SOUNDS: S1 normal heart sound present and S2 normal heart sound present GI: COMMON NORMALS: Normal to inspection, nondistended, normoactive bowel sounds present and non-tender Extremity: COMMON NORMALS: no pedal edema NARRATIVE EXTREMITY EXAM: Bilateral calf tenderness Neuro: COMMON NORMALS: patient oriented x3 Psych: COMMON NORMALS: mental status grossly normal Data 07/24/23 02:56 07/24/23 02:56 Micro: Microbiology 07/22/23 07:21 Urine Culture - Final Urine,Clean Catch A&P Assessment and plan (1) Acute cystitis with hematuria: (2) BPH loc w urin obs/LUTS: (3) Atrial fibrillation: Qualifiers: Atrial fibrillation type: paroxysmal Qualified Code(s): I48.0 - Paroxysmal atrial fibrillation (4) HTN (hypertension): Qualifiers: Hypertension type: primary hypertension Qualified Code(s): I10 - Essential (primary) hypertension (5) Elevated PSA: (6) Acute back pain less than 4 weeks duration: Mariana Dudley is a 73yo man w/ Paroxysmal Afib, HTN, HLD, b/l Nephrolithiasis, BPH w/ LUTs, LELAND intolerant to CPAP, L-spine decompression on 07/17/2023, who presented to the ED on 07/22/2023 via EMS for intractable back pain, b/l LE weakness. In the ED, his vital signs were significant for tachypnea up to 22. He had a wbc of 9.55, hyponatremia of 134, and a UA positive for ketones, and concerning for UTI. CT of L-spine was done that showed a heterogeneous hypodensity along the surgical tracts w/ bubbles of air, but no discrete drainable fluid collection appreciated. An MRI of the L-spine w/ & w/o contrast was recommended if there was any concern for an epidural collection. A CXR was done that showed no acute cardiopulmonary disease. He was given 1L NS bolus, Morphine 4mg IVP x 2 doses, Norflex 60mg IM x 1, Dexamethasone 10mg IM x 1, Toradol 30mg IVP x 1, and Ceftriaxone 1g x 1. He was admitted to the Orthopedic Surgery Service, and the Hospitalist service was consulted for medical management. #R. sided chest pain: -Continues to have right-sided chest pain -Prior EKGs no acute ST-T wave changes -Troponin 21 -Will order cardiac echo -Aspirin, statin, therapeutic Lovenox, metoprolol -N.p.o. midnight, for cardiac stress test tomorrow morning -Will also order venous ultrasound given relative immobility after back surgery #Back pain due to L3-L4, L4-L5 facectomy: #B/l LE weakness and physical deconditioning. - Per Ortho, - PT/OT ordred. #Acute Cystitis: F/u UCx. Continue Ceftriaxone #Afib: Continue metoprolol, is on therapeutic Lovenox, is on home Coumadin, INR 1.6 #HTN #HLD - Aspirin, Atorvastatin, Lisinopril resumed. Will hold HCTZ gildardo in the setting of early hyponatremia. #Hyponatremia: Resolved #LELAND intolerant to CPAP; He says that he [facility], but cannot tolerate it. #b/l Nephrolothiasis #BPH w/ LUTs #Elevated PSA - Managed by Urology. - On Tamsulosin #Tobacco use d/o: He rolls his own cigarrettes and buys his tobacco by the pound. Has smoked for ~60yrs. - Nicotine patch ordered #Anxiety/Depression: He smokes 1/2g to 1g of Marijuana daily for this. #Constipation: Monitor #Treated for Hep C in 2004 and 2005 DVT ppx: SCD. Will discuss anticoagulation prophylaxis w/ Orthopedic surgery. Plan for today as patient has persistent right-sided chest pain order cardiac echocardiogram, n.p.o. midnight, for stress test tomorrow, will also order venous ultrasound, pain control as per orthopedic team, up out of bed, Attestations 2 Medical Necessity Statement*: Patient requires hospitalization for right-sided chest pain Diagnoses Acute cystitis with hematuria N30.01 BPH loc w urin obs/LUTS N40.1 Paroxysmal atrial fibrillation I48.0 Atrial fibrillation type: paroxysmal Primary hypertension I10 Hypertension type: primary hypertension Elevated PSA R97.20 Acute back pain less than 4 weeks duration M54.9
--- NOTE | 2023-07-24 12:40 | USCV_ITS ---
Ge Dudley Age: 73 Gender: M : 1950 Exam Date: 07/24/2023 14:28 Ordering Phys: Arturo Coker MD Technologist: CARMEN Exam Location: [facility] [place] Indication: LE Swelling HISTORY: Lower extremity swelling. PROCEDURES: Venous duplex imaging was performed in bilateral lower extremities. The following venous structures were evaluated: common femoral vein, profunda vein, proximal portion of the greater saphenous vein, superficial femoral vein, and the popliteal vein. In addition, the posterior tibial and peroneal trunk were evaluated. Serial compression, augmentation maneuvers, and spectral Doppler flow evaluation were performed. FINDINGS: Normal 2-D Doppler and augmentation and compressibility throughout the lower extremity venous structures. Additional imaging through the proximal calf veins also reveals no thrombus. Limited evaluation of the greater saphenous vein is patent with no thrombus. CONCLUSIONS No DVT bilateral lower extremities. Dr. Lurdes Kim DO (Electronically Signed) Final Date: 24 July 2023 16:32 S
[2023-07-24 16:44] LABS: Troponin 5 6HR 27.86 ng/L (0-15); Troponin 5 6HR Delta 6.86 ng/L (0-12)
--- NOTE | 2023-07-24 17:35 | CT_ITS ---
WS: [id number] CT LUMBAR SPINE, noncontrast. HISTORY: 03/07 back pain, recent spine surgery TECHNIQUE: Contiguous 2.0 mm axial imaging are performed. Sagittal and coronal reformats are submitte d and reviewed. All CT scans at [facility] use at least one of these dose optimization techni ques: automated exposure control; mA and/or kV adjustment per patient size (includes targeted exams w here dose is matched to clinical indication); or iterative reconstruction. IV contrast: None DLP: 944.70 mGy.cm COMPARISON: 07/22/2023 RIGHT curvature lumbar spine. Advanced degenerative changes in the disc throughout the lumbar spine. 2 mm anterolisthesis of L3. No fracture. Large RIGHT laminectomy defect at L3. There is increased soft tissue extending through the defect. Th ere is increased soft tissue along the RIGHT subarticular recess. Cannot determine the source of the soft tissue on this examination. Additional RIGHT hemilaminectomy defect at L4. There is soft tissue changes in the paravertebral soft tissues on the RIGHT from the recent surgery. There are a few foci of air. No drainable collection. It is difficult to determine any cord compression or epidural mass o n this examination. Atherosclerotic changes within the aorta and ectatic dilated iliac arteries. IMPRESSION: 1. Recent postsurgical changes are noted in the lumbar spine with new laminectomy defects on the RIG HT at L3 and L4 with postoperative changes. 2. Foci of air and postoperative changes in the soft tissues. 3. MRI would be more helpful to evaluate for cord compression or the epidural space.
--- NOTE | 2023-07-24 18:02 | PC.NURSE ---
SHIFT NOTE Pt has been rating back pain at 10/10 consistently this shift. Pt known to be crying, help! down the hallways. Multiple pain medications given around the clock with no relief. Dr. Posey orders MRI; however, it is unable to be completed until 07/24. For this reason CT of lumbar spine ordered. No results at this time. During AM rounding, pt was able to walk very short distances. End of shift rounding pt has declined, with complaints of weakness in right leg. Two assist needed for transfers at this time. Pt accepted to [facility]. Stress test scheduled for 07/25/2023 - no complaints of chest pain for this RN this shift.
[2023-07-24] MEDS: diazePAM 5 mg Tablet PO (19:46)
[2023-07-24] MEDS: diphenhydrAMINE 50 mg Capsule PO (22:22)
[2023-07-25] VITALS (9 sets, daily range): BP systolic 124–172; BP diastolic 75–100; PULSE 57–86; RESP 18–19; TEMP 36.4–36.8; O2SAT 90–95; BMI 36.8
[2023-07-25] MEDS: dexamethasone 10 mg/mL INJ IVP ×4 (02:46→20:00)
[2023-07-25] MEDS: HYDROcodone-acetaminophen 10-325 mg Tablet PO ×4 (04:12→20:00)
[2023-07-25 05:48] LABS: Basophils % 0.1 %; Hematocrit 35.3 % (37-53); Lymphocytes # 0.3 10^3/uL (0.8-4.8); Lymphocytes % 2.9 %; Mean Corpuscular HGB Conc 32.3 g/dL (30-55); Mean Corpuscular Hemoglobin 28.5 pg (27-33); Mean Corpuscular Volume 88.3 fl (82-101); Mean Platelet Volume 11.3 fL (7.4-10.4); Monocytes # 0.5 10^3/uL (0.2-0.9); Monocytes % 4.6 %; Neutrophils # 9.73 10^3/uL (1.8-7.7); Neutrophils % 91.5 %; Nucleated Red Blood Cells % 0 %; Platelet Count 256 10^3/cmm (157-399); Red Cell Distribution Width 14.4 % (12.1-15.1); White Blood Count 10.64 10^3/uL (3.29-11.43)
[2023-07-25 05:55] LABS: INR 2.04 (0.8-1.2)
[2023-07-25 05:56] LABS: Partial Thromboplastin Time 58.2 SECONDS (23.9-36.7)
[2023-07-25 06:11] LABS: Alanine Aminotransferase 41 U/L (0-41); Albumin Level 3.3 g/dL (3.5-5.2); Alkaline Phosphatase 63 U/L (40-130); Anion Gap 16.5 (5-19); Aspartate Amino Transferase 49 U/L (0-40); Blood Urea Nitrogen 39 mg/dL (8-23); Calcium 8.4 mg/dL (8.5-10.5); Carbon Dioxide 25 mmol/L (22-29); Chloride 101 mmol/L (98-107); Creatinine Clr Calc Pharmacy 75.1403; Globulin 2.7 g/dL (1.3-4.6); Glucose 112 mg/dL (65-115); Magnesium 2.4 mg/dL (1.7-2.3); Osmolality Calculated 296 mOsm/kg (285-295); Phosphorus 3.6 mg/dL (2.5-4.5); Potassium 4.5 mmol/L (3.5-5.1); Sodium 138 mmol/L (136-145); Total Bilirubin 0.8 mg/dL (0.15-1.2)
--- NOTE | 2023-07-25 07:13 | SUR.PREOP ---
PRE STRESS NOTE Patient brought down for nuclear scans. Patient was unable to complete them d/t leg pains. Sent back to floor by NMT. Staffing notified on medsurge of the issues. Test on hold at this point.
[2023-07-25] MEDS: atorvastatin 40 mg Tablet 20 MG PO (08:00)
[2023-07-25] MEDS: docusate sodium 100 mg Capsule PO ×2 (08:00→17:06)
[2023-07-25] MEDS: aspirin 81 mg EC Tablet PO (08:00)
[2023-07-25] MEDS: pantoprazole DR 40 mg Tablet PO (08:00)
--- NOTE | 2023-07-25 08:00 | P.PN_ITS ---
Subjective 2 Subjective: Patient has no leg pain this morning. Still awaiting the MRI. Vitals/I&O/Wt Last Vital Signs Temp 97.6 F 07/25/23 07:14 Pulse 86 07/25/23 07:14 Resp 18 07/25/23 07:14 BP 172/100 07/25/23 07:14 Pulse Ox 90 07/25/23 07:14 O2 Del Method Room Air 07/25/23 07:14 O2 Flow Rate 2 07/22/23 08:32 07/24/23 07/25/23 07/25/23 22:59 06:59 14:59 Intake Total 480 / 1010 Output Total 225 / 525 300 / 825 Balance -225 / 5 180 / 185 Weight last 48 hrs Weight 234 lb 12.8 oz Weight 233 lb 3.2 oz Physical Exam 2 Narrative: Patient having back pain in the back of his legs. Urinary Catheter Management: Romero: Cath Placed During This Visit: yes Reason for Continuing Indwelling Catheter: Acute Urinary Retention or Obstruction Urinary Catheter Date of Insertion: 07/25/23 Urinary Catheter Time of Insertion: 02:30 Data 07/25/23 05:04 07/25/23 05:04 Micro: Microbiology 07/22/23 07:21 Urine Culture - Final Urine,Clean Catch A&P Assessment and plan (1) Status post lumbar laminectomy: Awaiting MRI Attestations 2 Medical Necessity Statement*: Pain control Coding Level of Care Code Acute Code for Chg Fwd Diagnoses Status post lumbar laminectomy Z98.890
[2023-07-25] MEDS: lisinopril 20 mg Tablet 40 MG PO (08:01)
[2023-07-25] MEDS: tamsulosin 0.4 mg Capsule 0.400000000000000022 MG PO (08:01)
[2023-07-25] MEDS: metoprolol tartrate 25 mg Tablet PO (08:01)
[2023-07-25] MEDS: cefTRIAXone 1,000 MG in sodium chloride 0.9% (plus) 50 ML 100 MG IV (08:01)
[2023-07-25] MEDS: warfarin 3 mg Tablet PO (08:04)
[2023-07-25] MEDS: warfarin 5 mg Tablet PO (08:04)
[2023-07-25] MEDS: nicotine 14 mg Patch 1 PATCH TRANSDERMA (08:04)
[2023-07-25] MEDS: morphine 4 mg/mL SDV 1 mL 2 MG IVP ×2 (08:47→14:10)
[2023-07-25 09:03] LABS: INR 2.02 (0.8-1.2)
--- NOTE | 2023-07-25 09:30 | MR_ITS ---
WS: [id number] MRI LUMBAR SPINE NONCONTRAST TECHNIQUE: Sagittal T1, T2 and STIR imaging. Axial T1 and T2 imaging. CLINICAL INFORMATION: 03/07 leg pain COMPARISON: None. FINDINGS: Recent postoperative changes laminectomy defects RIGHT L2-3 and RIGHT L4-5 epidural blood products ec centric to the. Postoperative changes in the RIGHT paravertebral soft tissues. Epidural blood products centered at RIGHT L2-3 level extending cephalad to T11 and caudally to L5. Ep idural blood products in the RIGHT L2-3 with high-grade effacement of the thecal sac at this level. T his extends cephalad with severe effacement of the thecal sac at L1-2. Mild effacement of the thecal sac at T11-T12 and T12-L1. RIGHT eccentric epidural hematoma at L3-4 with severe LEFT displacement of the thecal sac. Thecal sac is better identified at L4-L5 and L5-S1 with moderate narrowing at L4-5 and minimal narrowing at L5- S1. L1-L2: Severe effacement of the thecal sac due to RIGHT eccentric epidural hematoma. L2-L3: Severe effacement of the thecal sac due to RIGHT eccentric and dorsal epidural hematoma. L3-L4: Severe leftward displacement of the thecal sac with RIGHT epidural hematoma. Thecal sac appear s compressed to the LEFT. L4-L5: Moderate impingement on the thecal sac with epidural hematoma and blood products in the kristine ctomy defects. L5-S1: LEFT eccentric epidural blood products with mild central canal stenosis. IMPRESSION: 1. Multilevel severe impingement of the thecal sac due to RIGHT eccentric and dorsal epidural blood products worse at L1-L2 L2-L3 and L3-L4. Moderate impingement on the thecal sac at L4-5. 2. Additional blood products extend cephalad to the T11 and T12 levels with mild central canal narro wing. Notified Ad Posey DO at 07/25/2023 11:55 AM.
[2023-07-25] MEDS: haloperidol inj 5 mg/mL INJ 1 mL 1 MG IM (10:08)
--- NOTE | 2023-07-25 12:29 | P.PN_ITS ---
Subjective 2 Subjective: Patient continues to have weakness in his legs at this point pain is controlled. MRI is reviewed shows epidural hematoma from L1-L4. Vitals/I&O/Wt Last Vital Signs Temp 97.6 F 07/25/23 07:14 Pulse 86 07/25/23 07:14 Resp 18 07/25/23 08:47 BP 172/100 07/25/23 07:14 Pulse Ox 90 07/25/23 07:14 O2 Del Method Room Air 07/25/23 07:14 O2 Flow Rate 2 07/22/23 08:32 07/24/23 07/25/23 07/25/23 22:59 06:59 14:59 Intake Total 480 / 1010 110 / 110 Output Total 225 / 525 300 / 825 Balance -225 / 5 180 / 185 110 / 110 Weight last 48 hrs Weight 234 lb 12.8 oz Weight 233 lb 3.2 oz Physical Exam 2 Urinary Catheter Management: Romero: Cath Placed During This Visit: yes Reason for Continuing Indwelling Catheter: Acute Urinary Retention or Obstruction Urinary Catheter Date of Insertion: 07/25/23 Urinary Catheter Time of Insertion: 02:30 Data 07/25/23 05:04 07/25/23 05:04 Micro: Microbiology 07/22/23 07:21 Urine Culture - Final Urine,Clean Catch A&P Assessment and plan (1) Epidural hematoma: Plan will be to take patient to the OR tomorrow. His INR is currently greater than 2. Would like to get it down at least below 1.5 to do the surgery. Lower if possible. Attestations 2 Medical Necessity Statement*: Epidural hematoma Coding Level of Care Code Acute Code for Chg Fwd Diagnoses Epidural hematoma S06.4XAA
[2023-07-25] MEDS: phytonadione (ADULT) 10 mg/mL Ampule 1 mL SUBCUT (12:42)
[2023-07-25 13:03] LABS: INR 2.12 (0.8-1.2)
[2023-07-25 13:04] LABS: Partial Thromboplastin Time 47.5 SECONDS (23.9-36.7)
--- NOTE | 2023-07-25 13:43 | P.PN_ITS ---
Subjective 2 Subjective: Patient was seen this morning, he complains of severe pain in his hips, but no pain in his back, he tells me that he has decreased range of motion of bilateral legs and feet, he can wiggle his toes, he has sensation in his feet, and his toes and his knees, and his thighs, but he has diminished bilateral lower extremity strength, which is new compared to yesterday he tells me, no urinary continence no bowel incontinence no saddle perianal anesthesia, he tells me that Dr. Posey has seen him this morning has ordered a stat MRI, he has received his Coumadin this morning, and his Lovenox last night which I have instructed nursing staff to help keep n.p.o. until seen by Dr. Posey, will give him Haldol before his MRI, to help with restlessness and claustrophobia which patient reports, will avoid benzodiazepine, as Valium caused severe agitation, spoke to patient's at side patient's room, discussed plan, patient could not tolerate stress testing, as he could not lie flat, will cancel for now we discussed his echocardiogram findings, which were within normal limits, no significant ED ST-T wave changes , no significant delta troponin, he remained chest pain-free, denies any chest pain or shortness of breath currently Vitals/I&O/Wt Last Vital Signs Temp 97.6 F 07/25/23 07:14 Pulse 86 07/25/23 07:14 Resp 18 07/25/23 08:47 BP 172/100 07/25/23 07:14 Pulse Ox 90 07/25/23 07:14 O2 Del Method Room Air 07/25/23 07:14 O2 Flow Rate 2 07/22/23 08:32 07/24/23 07/25/23 07/25/23 22:59 06:59 14:59 Intake Total 480 / 1010 110 / 110 Output Total 225 / 525 300 / 825 Balance -225 / 5 180 / 185 110 / 110 Weight last 48 hrs Weight 106.503 kg Weight 105.778 kg Physical Exam 2 Const: COMMON NORMALS: no acute distress and patient oriented x3 Resp: COMMON NORMALS: normal respiratory effort, No retractions, No use of accessory muscles and clear to auscultation bilaterally AUSCULTATION: clear to auscultation bilaterally Cardio: COMMON NORMALS: regular rate, regular rhythm, S1 normal heart sound present and S2 normal heart sound present RATE: regular rate RHYTHM: r egular rhythm HEART SOUNDS: S1 normal heart sound present and S2 normal heart sound present GI: COMMON NORMALS: Normal to inspection, nondistended, normoactive bowel sounds present and non-tender Extremity: COMMON NORMALS: no pedal edema Neuro: COMMON NORMALS: patient oriented x3 and CN's II-XII intact bilaterally OTHER: Bilateral lower extremities, bilateral feet, has good sensation DP PT pulses palpable, diminished bilateral lower extremity eversion and inversion, plantar and dorsiflexion strength, bilaterally, diminished strength in bilateral anterior and posterior compartment of the lower extremities, decreased strength of bilateral thighs inversion eversion, and extension, no diminished sensation, no upper extremity strength diminish Psych: COMMON NORMALS: mental status grossly normal Urinary Catheter Management: Romero: Cath Placed During This Visit: yes Reason for Continuing Indwelling Catheter: Acute Urinary Retention or Obstruction Urinary Catheter Date of Insertion: 07/25/23 Urinary Catheter Time of Insertion: 02:30 Data 07/25/23 12:14 07/25/23 05:04 Micro: Microbiology 07/22/23 07:21 Urine Culture - Final Urine,Clean Catch A&P Assessment and plan (1) Acute cystitis with hematuria: (2) BPH loc w urin obs/LUTS: (3) Atrial fibrillation: Qualifiers: Atrial fibrillation type: paroxysmal Qualified Code(s): I48.0 - Paroxysmal atrial fibrillation (4) HTN (hypertension): Qualifiers: Hypertension type: primary hypertension Qualified Code(s): I10 - Essential (primary) hypertension (5) Elevated PSA: (6) Acute back pain less than 4 weeks duration: Plan Ge Dudley is a 73yo man w/ Paroxysmal Afib, HTN, HLD, b/l Nephrolithiasis, BPH w/ LUTs, LELAND intolerant to CPAP, L-spine decompression on 07/17/2023, who presented to the ED on 07/22/2023 via EMS for intractable back pain, b/l LE weakness. In the ED, his vital signs were significant for tachypnea up to 22. He had a wbc of 9.55, hyponatremia of 134, and a UA positive for ketones, and concerning for UTI. CT of L-spine was done that showed a heterogeneous hypodensity along the surgical tracts w/ bubbles of air, but no discrete drainable fluid collection appreciated. An MRI of the L-spine w/ & w/o contrast was recommended if there was any concern for an epidural collection. A CXR was done that showed no acute cardiopulmonary disease. He was given 1L NS bolus, Morphine 4mg IVP x 2 doses, Norflex 60mg IM x 1, Dexamethasone 10mg IM x 1, Toradol 30mg IVP x 1, and Ceftriaxone 1g x 1. He was admitted to the Orthopedic Surgery Service, and the Hospitalist service was consulted for medical management. #R. sided chest pain: -No chest pain over the last 24 hours -Prior EKGs no acute ST-T wave changes -Troponin 21 - CONCLUSIONS Technically limited quality echocardiogram because of poor ultrasonic windows. LV systolic function is normal with EF of 55 to 60%. Mild mitral regurgitation. Trace tricuspid regurgitation Mildly dilated ascending aorta with diameter of 3.5 cm. No comparison studies are available. -Continue statin, metoprolol -Could not tolerate rest testing, cannot lie flat, no chest pain, will hold off for now given bilateral lower extremity diminished strength need for stat MRI and surgical evaluation -Hold aspirin -Hold therapeutic Lovenox #Back pain due to L3-L4, L4-L5 facectomy: Now with diminished bilateral extremity strength #B/l LE weakness and physical deconditioning. Lumbar CT -IMPRESSION: 1. Recent postsurgical changes are noted in the lumbar spine with new laminectomy defects on the RIGHT at L3 and L4 with postoperative changes. 2. Foci of air and postoperative changes in the soft tissues. 3. MRI would be more helpful to evaluate for cord compression or the epidural space. -As patient has had diminished bilateral extremity strength, stat MRI ordered, warfarin, Lovenox on hold - Per Ortho, - PT/OT ordred. #Acute Cystitis: F/u UCx. Continue Ceftriaxone #Afib: Continue metoprolol, Lovenox, Coumadin on hold #HTN #HLD - Aspirin, Atorvastatin, Lisinopril resumed. Will hold HCTZ gildardo in the setting of early hyponatremia. #Hyponatremia: Resolved #LELAND intolerant to CPAP; He says that he has a [facility], but cannot tolerate it. #b/l Nephrolothiasis #BPH w/ LUTs #Elevated PSA - Managed by Urology. - On Tamsulosin #Tobacco use d/o: He rolls his own cigarrettes and buys his tobacco by the pound. Has smoked for ~60yrs. - Nicotine patch ordered #Anxiety/Depression: He smokes 1/2g to 1g of Marijuana daily for this. #Constipation: Monitor #Treated for Hep C in 2004 and 2005 DVT ppx: SCD. Will discuss anticoagulation prophylaxis w/ Orthopedic surgery. Plan for today stat MRI keep n.p.o., await surgery's recommendations, Coumadin, and warfarin on hold Attestations 2 Medical Necessity Statement*: Patient requires hospitalization, with back pain, now with diminished bilateral extremity strength concerning now stat MRI, with surgical evaluation, Coumadin warfarin on hold Diagnoses Acute cystitis with hematuria N30.01 BPH loc w urin obs/LUTS N40.1 Paroxysmal atrial fibrillation I48.0 Atrial fibrillation type: paroxysmal Primary hypertension I10 Hypertension type: primary hypertension Elevated PSA R97.20 Acute back pain less than 4 weeks duration M54.9
[2023-07-25] MEDS: diphenhydrAMINE 50 mg Capsule PO (19:59)
--- NOTE | 2023-07-25 21:20 | PC.NURSE ---
Patient confused and removing clothes and telemetry prior to med administration. Patient resting with eyes closed currently. Telemetry in place at this time.
--- NOTE | 2023-07-25 23:12 | PC.NURSE ---
patient confused and restless. Will not leave telemetry in place. Also will not leave gown on.
[2023-07-26] VITALS (26 sets, daily range): BP systolic 122–173; BP diastolic 70–103; PULSE 55–120; RESP 16–22; TEMP 35–37.1; O2SAT 91–99
[2023-07-26] MEDS: dexamethasone 10 mg/mL INJ IVP ×3 (02:27→19:39)
[2023-07-26 05:00] LABS: Hematocrit 36.5 % (37-53); Lymphocytes # 0.4 10^3/uL (0.8-4.8); Lymphocytes % 4.5 %; Mean Corpuscular HGB Conc 32.1 g/dL (30-55); Mean Corpuscular Hemoglobin 28.5 pg (27-33); Mean Platelet Volume 10.9 fL (7.4-10.4); Monocytes # 0.4 10^3/uL (0.2-0.9); Monocytes % 4.2 %; Neutrophils # 8.17 10^3/uL (1.8-7.7); Neutrophils % 90.5 %; Nucleated Red Blood Cells % 0 %; Platelet Count 254 10^3/cmm (157-399); Red Cell Distribution Width 14.3 % (12.1-15.1); White Blood Count 9.03 10^3/uL (3.29-11.43)
[2023-07-26 05:26] LABS: Alanine Aminotransferase 45 U/L (0-41); Albumin Level 3.2 g/dL (3.5-5.2); Alkaline Phosphatase 57 U/L (40-130); Anion Gap 14.4 (5-19); Aspartate Amino Transferase 63 U/L (0-40); Blood Urea Nitrogen 32 mg/dL (8-23); Calcium 8.3 mg/dL (8.5-10.5); Carbon Dioxide 25 mmol/L (22-29); Chloride 100 mmol/L (98-107); Creatinine Clr Calc Pharmacy 95.2091; Globulin 2.7 g/dL (1.3-4.6); Glucose 116 mg/dL (65-115); Magnesium 2.4 mg/dL (1.7-2.3); Osmolality Calculated 288 mOsm/kg (285-295); Potassium 4.4 mmol/L (3.5-5.1); Sodium 135 mmol/L (136-145); Total Bilirubin 0.8 mg/dL (0.15-1.2); Total Protein 5.9 g/dL (6.6-8.7)
[2023-07-26] MEDS: nicotine 14 mg Patch 1 PATCH TRANSDERMA (08:16)
[2023-07-26] MEDS: tamsulosin 0.4 mg Capsule 0.400000000000000022 MG PO (08:17)
[2023-07-26] MEDS: docusate sodium 100 mg Capsule PO ×2 (08:17→19:39)
[2023-07-26] MEDS: lisinopril 20 mg Tablet 40 MG PO (08:18)
[2023-07-26] MEDS: metoprolol tartrate 25 mg Tablet PO (08:18)
[2023-07-26] MEDS: pantoprazole DR 40 mg Tablet PO (08:19)
[2023-07-26] MEDS: atorvastatin 40 mg Tablet 20 MG PO (08:19)
[2023-07-26] MEDS: cefTRIAXone 1,000 MG in sodium chloride 0.9% (plus) 50 ML 100 MG IV (08:20)
[2023-07-26] MEDS: HYDROcodone-acetaminophen 10-325 mg Tablet PO ×3 (08:21→21:46)
--- NOTE | 2023-07-26 08:47 | XR_ITS ---
WS: [id number] INTRAOPERATIVE TECHNIQUE: 3 Spot fluoroscopic images for intraoperative purposes. FLUOROSCOPY TIME: 11.8 seconds CLINICAL INFORMATION: SHIR[facility] PICS COMPARISON: None. FINDINGS: Hemostat projected over the L1 spinous process dorsally IMPRESSION: Images obtained for intraoperative purposes.
--- NOTE | 2023-07-26 09:19 | PC.SOCIAL ---
IMM Update pg 2 of IMM updated and reviewed w/ patient. Copy provided and copy dated, initialed and placed in chart.
[2023-07-26] MEDS: phytonadione (ADULT) 10 mg/mL Ampule 1 mL SUBCUT (09:41)
--- NOTE | 2023-07-26 12:38 | P.PN_ITS ---
Subjective 2 Subjective: Patient was seen this morning, he tells me that he has overdone it and this is the reason why he is here in the hospital he tells me that after he got to the hospital after his initial back surgery, on Monday he overdid it, he he overexerted himself multiple times throughout the day, and after that he started develop severe back pain, this is the reason why he ended up back in the hospital he feels, and then when he was here in the hospital he tells me that with physical therapy, he ambulated over 150 feet, he tells me that he did not listen to the therapist and wanted to continue to ambulate, and he did this more than 3 times, he tells me that his hardheaded, and he thinks that overexertion is the reason why he has developed an epidural hematoma we discussed his INR it is 2, he is received vitamin K yesterday, unfortunately his surgery had to be delayed to this afternoon, he is ravi receive 2 units FFP, another 10 mg of vitamin K, we discussed holding his anticoagulant therapy for some period of time, discussed risk and benefits, he voiced understanding, all questions answered, agreed to proceed, bilateral lower extremities, has good sensation bilateral extremities, on examination, dorsal and plantarflexion equal bilaterally, diminished, strength is 3 out of 5, good eversion and inversion, bilateral extremities, anterior and posterior component of the bilateral lower extremity, strength 3/5 Vitals/I&O/Wt Last Vital Signs Temp 98.5 F 07/26/23 12:10 Pulse 61 07/26/23 12:10 Resp 18 07/26/23 12:10 BP 160/83 07/26/23 12:10 Pulse Ox 94 07/26/23 12:07 O2 Del Method Room Air 07/26/23 04:00 O2 Flow Rate 2 07/22/23 08:32 07/25/23 07/26/23 07/26/23 22:59 06:59 14:59 Intake Total 480 / 590 378 / 378 Output Total 1400 / 1400 350 / 1750 Balance -920 / -810 -350 / -1160 378 / 378 Weight last 48 hrs Weight 108.579 kg Weight 106.503 kg Physical Exam 2 Const: COMMON NORMALS: no acute distress and patient oriented x3 Resp: COMMON NORMALS: normal respiratory effort, No retractions, No use of accessory muscles and clear to auscultation bilaterally AUSCULTATION: clear to auscultation bilaterally Cardio: COMMON NORMALS: regular rate, regular rhythm, S1 normal heart sound present and S2 normal heart sound present RATE: regular rate RHYTHM: r egular rhythm HEART SOUNDS: S1 normal heart sound present and S2 normal heart sound present GI: COMMON NORMALS: Normal to inspection, nondistended, normoactive bowel sounds present and non-tender Extremity: COMMON NORMALS: no pedal edema Neuro: COMMON NORMALS: patient oriented x3 Psych: COMMON NORMALS: mental status grossly normal Urinary Catheter Management: Romero: Cath Placed During This Visit: yes Reason for Continuing Indwelling Catheter: Acute Urinary Retention or Obstruction Urinary Catheter Date of Insertion: 07/25/23 Urinary Catheter Time of Insertion: 02:30 Data 07/26/23 04:16 07/26/23 04:16 A&P Assessment and plan (1) Acute cystitis with hematuria: (2) BPH loc w urin obs/LUTS: (3) Atrial fibrillation: Qualifiers: Atrial fibrillation type: paroxysmal Qualified Code(s): I48.0 - Paroxysmal atrial fibrillation (4) HTN (hypertension): Qualifiers: Hypertension type: primary hypertension Qualified Code(s): I10 - Essential (primary) hypertension (5) Elevated PSA: (6) Acute back pain less than 4 weeks duration: Plan Ge Dudley is a 73yo man w/ Paroxysmal Afib, HTN, HLD, b/l Nephrolithiasis, BPH w/ LUTs, LELAND intolerant to CPAP, L-spine decompression on 07/17/2023, who presented to the ED on 07/22/2023 via EMS for intractable back pain, b/l LE weakness. In the ED, his vital signs were significant for tachypnea up to 22. He had a wbc of 9.55, hyponatremia of 134, and a UA positive for ketones, and concerning for UTI. CT of L-spine was done that showed a heterogeneous hypodensity along the surgical tracts w/ bubbles of air, but no discrete drainable fluid collection appreciated. An MRI of the L-spine w/ & w/o contrast was recommended if there was any concern for an epidural collection. A CXR was done that showed no acute cardiopulmonary disease. He was given 1L NS bolus, Morphine 4mg IVP x 2 doses, Norflex 60mg IM x 1, Dexamethasone 10mg IM x 1, Toradol 30mg IVP x 1, and Ceftriaxone 1g x 1. He was admitted to the Orthopedic Surgery Service, and the Hospitalist service was consulted for medical management. #R. sided chest pain: -No chest pain over the last 24 hours -Prior EKGs no acute ST-T wave changes -Troponin 21 - CONCLUSIONS Technically limited quality echocardiogram because of poor ultrasonic windows. LV systolic function is normal with EF of 55 to 60%. Mild mitral regurgitation. Trace tricuspid regurgitation Mildly dilated ascending aorta with diameter of 3.5 cm. No comparison studies are available. -Continue statin, metoprolol -Could not tolerate stress testing, cannot lie flat, no chest pain, will hold off for now given bilateral lower extremity diminished strength need for stat MRI and surgical evaluation -Hold aspirin -Hold therapeutic Lovenox #Back pain due to L3-L4, L4-L5 facectomy: Now with diminished bilateral extremity strength #B/l LE weakness and physical deconditioning. Lumbar CT -IMPRESSION: 1. Recent postsurgical changes are noted in the lumbar spine with new laminectomy defects on the RIGHT at L3 and L4 with postoperative changes. 2. Foci of air and postoperative changes in the soft tissues. 3. MRI would be more helpful to evaluate for cord compression or the epidural space. -As patient has had diminished bilateral extremity strength, stat MRI ordered, warfarin, Lovenox on hold - Per Ortho, - PT/OT ordred. lumbar mri IMPRESSION: 1. Multilevel severe impingement of the thecal sac due to RIGHT eccentric and dorsal epidural blood products worse at L1-L2 L2-L3 and L3-L4. Moderate impingement on the thecal sac at L4-5. 2. Additional blood products extend cephalad to the T11 and T12 levels with mild central canal narrowing. Plan -N.p.o. -Will be taken back to the OR this afternoon, as INR is 2, received 2 units FFP, vitamin K, recheck at noon #Acute Cystitis: F/u UCx. Continue Ceftriaxone #Afib: Continue metoprolol, Lovenox, Coumadin on hold #HTN #HLD - Aspirin, Atorvastatin, Lisinopril resumed. Will hold HCTZ gildardo in the setting of early hyponatremia. #Hyponatremia: Resolved #LELAND intolerant to CPAP; He says that he has a [facility], but cannot tolerate it. #b/l Nephrolothiasis #BPH w/ LUTs #Elevated PSA - Managed by Urology. - On Tamsulosin #Tobacco use d/o: He rolls his own cigarrettes and buys his tobacco by the pound. Has smoked for ~60yrs. - Nicotine patch ordered #Anxiety/Depression: He smokes 1/2g to 1g of Marijuana daily for this. #Constipation: Monitor #Treated for Hep C in 2004 and 2005 DVT ppx: SCD. Will discuss anticoagulation prophylaxis w/ Orthopedic surgery. Plan for today surgical intervention, Attestations 2 Medical Necessity Statement*: Patient requires hospitalization for epidural hematoma of the back, elevated INR, requiring FFP, vitamin K, surgical intervention today, hold all anticoagulant therapy Diagnoses Acute cystitis with hematuria N30.01 BPH loc w urin obs/LUTS N40.1 Paroxysmal atrial fibrillation I48.0 Atrial fibrillation type: paroxysmal Primary hypertension I10 Hypertension type: primary hypertension Elevated PSA R97.20 Acute back pain less than 4 weeks duration M54.9
[2023-07-26 14:26] LABS: INR 1.49 (0.8-1.2)
[2023-07-26] MEDS: sodium chloride 0.9% 1,000 ML 30 ML IV (14:50)
--- NOTE | 2023-07-26 15:47 | W.PM.OPSUD ---
Surgery/Procedure H&P Update DATE OF PROCEDURE: July 26, 2023 DATE H&P PERFORMED: 07/25/23 H&P UPDATE INFORMATION: I have reviewed H&P completed within last 30 days, I have examined patient prior to procedure and No changes to prior documentation PREOP DIAGNOSIS: Epidural hematoma PLANNED PROCEDURE: Operation Date: 07/26/23 14:00 Proposed Procedures p Open Spine Decompression - Lumbar 1 to Lumbar 5(Not Applicable) - Ad Posey DO
--- NOTE | 2023-07-26 16:31 | ANES.PREANE2 ---
Pre-Anesthetic Assessment Height/Weight: Height 1.7 m Weight 108.579 kg Temp Pulse Resp BP Pulse Ox O2 Del Method O2 Flow Rate 95 F L 68 18 154/103 94 Nasal Cannula 2 07/26/23 14:41 07/26/23 14:41 07/26/23 14:41 07/26/23 14:41 07/26/23 14:41 07/26/23 13:44 07/22/23 08:32 Preop Diagnosis: Epidural hematoma Operation Date: 07/26/23 14:00 Proposed Procedures p Open Spine Decompression - Lumbar 1 to Lumbar 5(Not Applicable) - Ad Posey, DO Familial anesthetic complications: none Was Beta Rita taken within 24 hours: Yes Was Clonidine taken within 24 hours: N/A Last intake: Intake Last Liquid Date 07/25/23 Last Liquid Time 23:59 Last Solid Date 07/25/23 Last Solid Time 23:59 Social Tobacco and No alcohol tip Exam alert and oriented x 3 Airway Submandibular: within normal limits Cervical ROM: within normal limits Mallampati: Class II Dentition: chipped (Poor dentition) Pulmonary Chronic Obstructive Pulmonary Disease and Sleep Apnea CV/HEM Atrial Fibrillation and Hypertension INR 1.49 Metabolic Morbid Obesity [facility] [place] Lower Back Pain and Osteoarthritis/DJD Anesthetic Plan ASA status: 3 Anesthesia: General Medications/Allergies Home Medications Medication Instructions Recorded Confirmed Last Taken Type lisinopril 40 mg tablet 40 mg PO DAILY 12/09/19 07/22/23 07/21/23 History aspirin 81 mg tablet,delayed 81 mg PO DAILY 04/15/20 07/22/23 07/21/23 History release (Adult Aspirin Regimen) hydrochlorothiazide 25 mg tablet 12.5 mg PO DAILY Edema 07/31/20 07/22/23 07/21/23 History metoprolol tartrate 25 mg tablet 12.5 mg PO BID 08/12/20 07/22/23 07/21/23 History tizanidine 2 mg capsule 2 mg PO Q8H PRN Muscle Spasm 03/29/22 07/22/23 07/16/23 History MARIJUANA 1 g inhalation ONCE 05/12/22 07/22/23 07/22/23 History pantoprazole 20 mg tablet,delayed 20 mg PO DAILY 06/21/22 07/22/23 07/21/23 History release atorvastatin 10 mg tablet 10 mg PO DAILY 08/17/22 07/22/23 07/21/23 History loperamide 2 mg capsule 2 mg PO Q6H PRN Diarrhea 09/26/22 07/22/23 Unknown History warfarin 5 mg tablet 8 mg PO DAILY 11/16/22 07/22/23 07/21/23 History hydrocodone 5 mg-acetaminophen 325 1 - 2 tab PO .Q4-6H #40 tabs 07/17/23 07/22/23 07/21/23 Rx mg tablet tamsulosin 0.4 mg capsule 0.4 mg PO DAILY 07/17/23 07/22/23 07/21/23 History warfarin 3 mg tablet 3 mg PO DAILY 07/22/23 07/22/23 07/21/23 History Allergies Allergy/AdvReac Type Severity Reaction Status Date / Time No Known Allergies Allergy Verified 07/14/23 08:20 Current Medications Generic Name Dose Route Start Last Admin Trade Name Freq PRN Reason Stop Dose Admin Hydrocodone Bitart/Acetaminophen 1 - 2 tab 07/22/23 09:25 07/26/23 14:16 Hydrocodone-Acetaminophen 10-325 Mg Tablet PO 2 tab Q4H PRN Administration MODERATE TO SEVERE PAIN Aspirin 81 mg 07/23/23 09:00 07/25/23 08:00 Aspirin 81 Mg Ec Tablet PO 81 mg DAILY CLARENCE Administration Atorvastatin Calcium 20 mg 07/23/23 09:00 07/26/23 08:19 Atorvastatin 40 Mg Tablet PO 20 mg DAILY CLARENCE Administration Dexamethasone 10 mg 07/22/23 09:30 07/26/23 09:41 Dexamethasone 10 Mg/Ml Inj IVP 10 mg Q6H CLARENCE Administration Diazepam 5 mg 07/22/23 09:31 07/24/23 19:46 Diazepam 5 Mg Tablet PO 5 mg Q8H PRN Administration ANXIETY Diphenhydramine HCl 50 mg 07/22/23 09:31 07/25/23 19:59 Diphenhydramine 50 Mg Capsule PO 50 mg BEDTIME PRN Administration SLEEP Docusate Sodium 100 mg 07/22/23 18:00 07/26/23 08:17 Docusate Sodium 100 Mg Capsule PO 100 mg BID CLARENCE Administration Ceftriaxone Sodium 1,000 mg/ 50 mls @ 100 mls/hr 07/23/23 09:00 07/26/23 09:51 Sodium Chloride IV 07/28/23 09:29 Infused DAILY CLARENCE Infusion Protocol Sodium Chloride 1,000 mls @ 30 mls/hr 07/26/23 14:45 07/26/23 14:50 Sodium Chloride 0.9% IV 07/27/23 14:44 30 mls/hr .Q24H CLRAENCE Administration Lisinopril 40 mg 07/23/23 09:00 07/26/23 08:18 Lisinopril 20 Mg Tablet PO 40 mg DAILY CLARENCE Administration Magnesium Hydroxide 30 ml 07/22/23 09:25 07/22/23 21:23 Magnesium Hydroxide 30 Ml Udc PO 30 ml Q4H PRN Administration Constipation/indigestion Metoprolol Tartrate 25 mg 07/23/23 09:00 07/26/23 08:18 Metoprolol Tartrate 25 Mg Tablet PO 25 mg DAILY CLARENCE Administration Nicotine 1 patch 07/23/23 09:00 07/26/23 08:16 Nicotine 14 Mg Patch TRANSDERMA 1 patch DAILY CLARENCE Administration Pantoprazole Sodium 40 mg 07/23/23 09:00 07/26/23 08:[address] 40 Mg Tablet PO 40 mg DAILY CLARENCE Administration Tamsulosin HCl 0.4 mg 07/23/23 09:00 07/26/23 08:17 Tamsulosin 0.4 Mg Capsule PO 0.4 mg DAILY CLARENCE Administration Tizanidine HCl 2 mg 07/22/23 11:33 07/24/23 19:46 Tizanidine 4 Mg Tablet PO 2 mg Q8H PRN Administration MUSCLE SPASMS PFSH Anesthesia Medical History Diverticulosis Asymptomatic microscopic hematuria BPH loc w urin obs/LUTS Acute cystitis with hematuria BPH w/o urinary obs/LUTS Gross hematuria Erectile dysfunction due to diseases classified elsewhere Elevated PSA HTN (hypertension) Sleep apnea Smoker Chest pain Atrial fibrillation Gout Hepatitis C Urolithiasis Surgical History Status post laser lithotripsy of ureteral calculus S/P ureteral stent placement S/P cholecystectomy Family History Father , Age 76 Congestive heart failure (CHF) Mother Osteoporosis Social History Smoking and tobacco/nicotine status: current every day tobacco/nicotine user Alcohol intake: current Alcohol intake frequency: few times a month Alcohol type: beer Substance/Drug Use: current Substance/Drug use frequency: daily Marital status: Current occupational status: retired Data Anesthesia 07/26/23 04:16 07/26/23 04:16 Short CBC 07/25/23 07/25/23 07/26/23 Range/Units 05:04 12:14 04:16 WBC 10.64 9.03 (3.29-11.43) 10^3/uL Hgb 11.40 11.50 11.70 (11.27-16.99) g/dL Hct 35.3 L 36.5 L (37-53) % MCV 88.3 89.0 (82-101) fl Plt Count 256 254 (157-399) 10^3/cmm Neut % (Auto) 91.5 90.5 % Neut # (Auto) 9.73 H 8.17 H (1.8-7.7) 10^3/uL BMP 07/25/23 07/26/23 05:04 04:16 Sodium 138 135 L Potassium 4.5 4.4 Chloride 101 100 Carbon Dioxide 25 25 BUN 39 H 32 H Creatinine 1.0 0.8 Glucose 112 116 H Calcium 8.4 L 8.3 L Cardiac Enzymes 07/24/23 Range/Units 15:37 Troponin T Hi Sens 6Hr 27.86 H (0-15) ng/L Troponin T Hi Sens 6Hr Delta 6.86 (0-12) ng/L Liver Function 07/25/23 07/26/23 Range/Units 05:04 04:16 Total Bilirubin 0.8 0.8 (0.15-1.2) mg/dL AST 49 H 63 H (0-40) U/L ALT 41 45 H (0-41) U/L Alkaline Phosphatase 63 57 (40-130) U/L Albumin 3.3 L 3.2 L (3.5-5.2) g/dL Blood Bank 07/26/23 08:30 Blood Type B Positive Rho(D) Type Rh positive Coags 07/25/23 07/25/23 07/25/23 05:04 08:32 12:14 PT 23.80 H 23.60 H 24.50 H INR 2.04 H 2.02 H 2.12 H APTT 58.2 H 47.5 H 07/26/23 07/26/23 04:16 13:53 PT 23.40 H 18.50 H INR 2.00 H 1.49 H APTT Cardiac Studies: Echocardiogram 07/24/23
[2023-07-26] MEDS: ceFAZolin 2,000 MG in sodium chloride 0.9% (plus) 50 ML 100 MG IV (16:40)
[2023-07-26] MEDS: lidocaine-epi 1% 20 mL INJ INJECTION (16:41)
[2023-07-26] MEDS: vancomycin 1,000 MG SDV 1000 MG XX (17:53)
--- NOTE | 2023-07-26 18:14 | P.OP_ITS ---
Operative Report Date of procedure: July 26, 2023 Pre-op diagnosis: 1. Epidural hematoma L1 to L5. Post-op diagnosis: same Procedure done: 1. L1-2 laminectomy with partial facetectomies 2. L2-3 laminectomy with partial facetectomies 3. L3-4 laminectomy with partial facetectomies 4. L4-5 laminectomy with partial facetectomies Surgeon: Ad Posey DO Estimated blood loss (mL): 500 Procedure: 1. L1-2 laminectomy with partial facetectomies 2. L2-3 laminectomy with partial facetectomies 3. L3-4 laminectomy with partial facetectomies 4. L4-5 laminectomy with partial facetectomies Patient is brought to the operative suite after going anesthesia was placed in the prone position. All areas impingement well-padded. Skin incision made using previous skin incision as well as explaining proximally and distally. Probe was used to cut through the skin down to the thoracolumbar fascia. Retractors were placed. Subperiosteal dissection was made out to the facets L1- 2, L2-3, L3-4, and L4-5. Once the area was exposed the 2 previous laminotomy sites on the right side of L4-5 and L3-4 were identified. The rongeur was then used to take down the spinous process of L4. The laminectomy was then performed using a high-speed bur taking down the lamina of L4 and then taking down the medial aspect of the facet joints of L4-5 bilaterally. The curved curette was then used to undermine underneath the remaining lamina. And then a #3 Kerrison was used to complete the laminectomy of L4. And then the medial aspect of the facet joints were taken down with the remaining Kerrison bilaterally. Ligamentum flavum was then taken down from L4- L5. Hematoma was identified teased out with a curved curette and irrigated. The rongeur was then used to take down the spinous process of L3. The laminectomy was then performed using a high-speed bur taking down the lamina of L3 and then taking down the medial aspect of the facet joints of L3/4 bilaterally. The curved curette was then used to undermine underneath the remaining lamina. And then a #3 Kerrison was used to complete the laminectomy of L3. And then the medial aspect of the facet joints were taken down with the remaining Kerrison bilaterally. Ligamentum flavum was then taken down from L3- L4. Hematoma was identified teased out with a curved curette and irrigated. The rongeur was then used to take down the spinous process of L2. The laminectomy was then performed using a high-speed bur taking down the lamina of L2 and then taking down the medial aspect of the facet joints of L2/3 bilaterally. The curved curette was then used to undermine underneath the remaining lamina. And then a #3 Kerrison was used to complete the laminectomy of L2. And then the medial aspect of the facet joints were taken down with the remaining Kerrison bilaterally. Ligamentum flavum was then taken down from L2- L3. Hematoma was identified teased out with a curved curette and irrigated. The rongeur was then used to take down the spinous process of L1. The laminectomy was then performed using a high-speed bur taking down the lamina of L1 and then taking down the medial aspect of the facet joints of L1/2 bilaterally. The curved curette was then used to undermine underneath the remaining lamina. And then a #3 Kerrison was used to complete the laminectomy of L1. And then the medial aspect of the facet joints were taken down with the remaining Kerrison bilaterally. Ligamentum flavum was then taken down from L1- L2. Hematoma was identified teased out with a curved curette and irrigated. The remaining hematoma was teased off from the remaining lamina of L1 down to the remaining lamina of L5. Hematoma was teased off the dura. There was complete exposed and free of any compression from the hematoma. Wounds were irrigated vancomycin powder was placed deep drain was placed wound was closed in layered fashion with 0 Vicryl 2-0 Vicryl and Monocryl suture. Sterile dressings were applied patient was transferred to the PACU in stable condition.
--- NOTE | 2023-07-26 18:45 | ANE.PACU2 ---
Inpatient post-anesthesia follow up: Airway intact: Yes Vital signs: Temperature 97.6 F Pulse Rate 101 Respiratory Rate 18 Blood Pressure 147/88 Pulse Oximetry 92 Oxygen Delivery Me thod Room Air Oxygen Flow Rate 10 Fraction of Inspir ed Oxygen Hydration adequate: Yes Nausea and vomiting: No Pain level: 3 Mental status: Altered (confused)
[2023-07-26] MEDS: lactated ringers 1,000 ML 90 ML IV (19:37)
[2023-07-27] VITALS (13 sets, daily range): BP systolic 118–170; BP diastolic 65–90; PULSE 62–85; RESP 16–21; TEMP 36.5–36.9; O2SAT 90–97; BMI 36.7
[2023-07-27] MEDS: ceFAZolin 2,000 MG in sodium chloride 0.9% (plus) 50 ML 100 MG IV ×3 (00:19→17:44)
[2023-07-27] MEDS: dexamethasone 10 mg/mL INJ IVP ×4 (01:59→20:34)
[2023-07-27 05:17] LABS: Basophils % 0.1 %; Hematocrit 31.6 % (37-53); Lymphocytes # 0.2 10^3/uL (0.8-4.8); Lymphocytes % 2.5 %; Mean Corpuscular HGB Conc 31.6 g/dL (30-55); Mean Corpuscular Hemoglobin 28.6 pg (27-33); Mean Corpuscular Volume 90.3 fl (82-101); Mean Platelet Volume 10.9 fL (7.4-10.4); Monocytes # 0.5 10^3/uL (0.2-0.9); Monocytes % 5.3 %; Neutrophils # 8.69 10^3/uL (1.8-7.7); Neutrophils % 91.2 %; Nucleated Red Blood Cells % 0 %; Platelet Count 202 10^3/cmm (157-399); Red Cell Distribution Width 14.1 % (12.1-15.1); White Blood Count 9.54 10^3/uL (3.29-11.43)
[2023-07-27 05:30] LABS: INR 1.34 (0.8-1.2)
[2023-07-27 05:50] LABS: Alanine Aminotransferase 56 U/L (0-41); Albumin Level 3.2 g/dL (3.5-5.2); Alkaline Phosphatase 57 U/L (40-130); Anion Gap 13.3 (5-19); Aspartate Amino Transferase 64 U/L (0-40); Blood Urea Nitrogen 23 mg/dL (8-23); Carbon Dioxide 25 mmol/L (22-29); Chloride 104 mmol/L (98-107); Creatinine Clr Calc Pharmacy 94.2086; Globulin 2.5 g/dL (1.3-4.6); Glucose 134 mg/dL (65-115); Magnesium 2.3 mg/dL (1.7-2.3); Osmolality Calculated 292 mOsm/kg (285-295); Potassium 4.3 mmol/L (3.5-5.1); Sodium 138 mmol/L (136-145); Total Bilirubin 0.6 mg/dL (0.15-1.2); Total Protein 5.7 g/dL (6.6-8.7)
[2023-07-27] MEDS: lactated ringers 1,000 ML 90 ML IV (06:30)
[2023-07-27] MEDS: HYDROcodone-acetaminophen 10-325 mg Tablet PO ×3 (06:53→18:51)
--- NOTE | 2023-07-27 07:15 | P.PN_ITS ---
Subjective 2 Subjective: Patient is having some confusion. Seems to be more alert today. Than he was last night. Vitals/I&O/Wt Last Vital Signs Temp 98.5 F 07/27/23 04:00 Pulse 72 07/27/23 04:43 Resp 17 07/27/23 04:00 BP 170/90 07/27/23 04:00 Pulse Ox 97 07/27/23 04:00 O2 Del Method Room Air 07/27/23 04:00 O2 Flow Rate 2 07/27/23 00:00 07/26/23 07/27/23 07/27/23 22:59 06:59 14:59 Intake Total 1394 / 2105 1029.5 / 3134.5 Output Total 1505 / 1505 905 / 2410 Balance -111 / 600 124.5 / 724.5 Weight last 48 hrs Weight 234 lb 9 oz Weight 239 lb 6 oz Physical Exam 2 Narrative: Weakness in his legs Urinary Catheter Management: Romero: Cath Placed During This Visit: yes Reason for Continuing Indwelling Catheter: Other Urinary Catheter Date of Insertion: 07/25/23 Urinary Catheter Time of Insertion: 02:30 Data 07/27/23 04:59 07/27/23 04:59 A&P Assessment and plan (1) Status post lumbar laminectomy: Patient is postop day #1 from laminectomy with e epidural hematoma washout. Attestations 2 Medical Necessity Statement*: Pain control Coding Level of Care Code Acute Code for Chg Fwd Diagnoses Status post lumbar laminectomy Z98.890
[2023-07-27] MEDS: tamsulosin 0.4 mg Capsule 0.400000000000000022 MG PO (08:23)
[2023-07-27] MEDS: atorvastatin 40 mg Tablet 20 MG PO (08:23)
[2023-07-27] MEDS: pantoprazole DR 40 mg Tablet PO (08:23)
[2023-07-27] MEDS: lisinopril 20 mg Tablet 40 MG PO (08:24)
[2023-07-27] MEDS: docusate sodium 100 mg Capsule PO ×2 (08:24→17:44)
[2023-07-27] MEDS: metoprolol tartrate 25 mg Tablet PO (08:24)
[2023-07-27] MEDS: nicotine 14 mg Patch 1 PATCH TRANSDERMA (08:24)
[2023-07-27] MEDS: cefTRIAXone 1,000 MG in sodium chloride 0.9% (plus) 50 ML 100 MG IV (08:27)
--- NOTE | 2023-07-27 11:14 | P.PN_ITS ---
Subjective 2 Subjective: patient was seen this morning, postoperatively, he had episodes of confusion overnight, this mornig he is aaoX3, follows all commands his bialteral LE feet has good rom, eversion, inversion, no loss of sensation, but he has minimal movment in knees and hips, discussed my concern for spinal cord injury and need for multidisciplicnary rehab, he tells me he wont overdue it this time, he has a document that physical therapy has given to him for bed exercises, we discussed holding all anticoagulant therapy, discussed risk and benefit, risk inclusing reoccurnce of bleeding and futher injury vs risk of cva, blood clotts, cardiovascular events, he voiced understanding, all questions answered, he voiced understanding, agreed to proceed, Vitals/I&O/Wt Last Vital Signs Temp 97.8 F 07/27/23 08:00 Pulse 85 07/27/23 08:00 Resp 18 07/27/23 08:00 BP 164/86 07/27/23 08:00 Pulse Ox 96 07/27/23 08:00 O2 Del Method Room Air 07/27/23 04:00 O2 Flow Rate 2 07/27/23 00:00 07/26/23 07/27/23 07/27/23 22:59 06:59 14:59 Intake Total 1394 / 2105 1029.5 / 3134.5 460 / 460 Output Total 1505 / 1505 905 / 2410 Balance -111 / 600 124.5 / 724.5 460 / 460 Weight last 48 hrs Weight 106.396 kg Weight 108.579 kg Physical Exam 2 Const: COMMON NORMALS: no acute distress and patient oriented x3 Resp: COMMON NORMALS: normal respiratory effort, No retractions, No use of accessory muscles and clear to auscultation bilaterally AUSCULTATION: clear to auscultation bilaterally Cardio: COMMON NORMALS: regular rate, regular rhythm, S1 normal heart sound present and S2 normal heart sound present RATE: regular rate RHYTHM: r egular rhythm HEART SOUNDS: S1 normal heart sound present and S2 normal heart sound present GI: COMMON NORMALS: Normal to inspection, nondistended, normoactive bowel sounds present and non-tender Extremity: COMMON NORMALS: no pedal edema Neuro: COMMON NORMALS: patient oriented x3 Psych: COMMON NORMALS: mental status grossly normal Urinary Catheter Management: Romero: Cath Placed During This Visit: yes Reason for Continuing Indwelling Catheter: Other Urinary Catheter Date of Insertion: 07/25/23 Urinary Catheter Time of Insertion: 02:30 Data 07/27/23 04:59 07/27/23 04:59 A&P Assessment and plan (1) Acute cystitis with hematuria: (2) BPH loc w urin obs/LUTS: (3) Atrial fibrillation: Qualifiers: Atrial fibrillation type: paroxysmal Qualified Code(s): I48.0 - Paroxysmal atrial fibrillation (4) HTN (hypertension): Qualifiers: Hypertension type: primary hypertension Qualified Code(s): I10 - Essential (primary) hypertension (5) Elevated PSA: (6) Acute back pain less than 4 weeks duration: (7) Spinal cord injury: Plan Ge Dudley is a 73yo man w/ Paroxysmal Afib, HTN, HLD, b/l Nephrolithiasis, BPH w/ LUTs, LELAND intolerant to CPAP, L-spine decompression on 07/17/2023, who presented to the ED on 07/22/2023 via EMS for intractable back pain, b/l LE weakness. In the ED, his vital signs were significant for tachypnea up to 22. He had a wbc of 9.55, hyponatremia of 134, and a UA positive for ketones, and concerning for UTI. CT of L-spine was done that showed a heterogeneous hypodensity along the surgical tracts w/ bubbles of air, but no discrete drainable fluid collection appreciated. An MRI of the L-spine w/ & w/o contrast was recommended if there was any concern for an epidural collection. A CXR was done that showed no acute cardiopulmonary disease. He was given 1L NS bolus, Morphine 4mg IVP x 2 doses, Norflex 60mg IM x 1, Dexamethasone 10mg IM x 1, Toradol 30mg IVP x 1, and Ceftriaxone 1g x 1. He was admitted to the Orthopedic Surgery Service, and the Hospitalist service was consulted for medical management. #R. sided chest pain: -No chest pain over the last 24 hours -Prior EKGs no acute ST-T wave changes -Troponin 21 - CONCLUSIONS Technically limited quality echocardiogram because of poor ultrasonic windows. LV systolic function is normal with EF of 55 to 60%. Mild mitral regurgitation. Trace tricuspid regurgitation Mildly dilated ascending aorta with diameter of 3.5 cm. No comparison studies are available. -Continue statin, metoprolol -Could not tolerate stress testing, cannot lie flat, no chest pain, will hold off for now given bilateral lower extremity diminished strength need for stat MRI and surgical evaluation -Hold aspirin -Hold therapeutic Lovenox #Back pain due to L3-L4, L4-L5 facectomy, Now with diminished bilateral extremity strength, secondary to epidural hematoma #B/l LE weakness and physical deconditioning. Lumbar CT -IMPRESSION: 1. Recent postsurgical changes are noted in the lumbar spine with new laminectomy defects on the RIGHT at L3 and L4 with postoperative changes. 2. Foci of air and postoperative changes in the soft tissues. 3. MRI would be more helpful to evaluate for cord compression or the epidural space. -As patient has had diminished bilateral extremity strength, stat MRI ordered, warfarin, Lovenox on hold - Per Ortho, - PT/OT ordred. lumbar mri IMPRESSION: 1. Multilevel severe impingement of the thecal sac due to RIGHT eccentric and dorsal epidural blood products worse at L1-L2 L2-L3 and L3-L4. Moderate impingement on the thecal sac at L4-5. 2. Additional blood products extend cephalad to the T11 and T12 levels with mild central canal narrowing. -s/p epidural hematoma washout POD 1 Plan -hold all anticoagulant therapy -pt/ot -will need placement to rehab #Acute Cystitis: F/u UCx. resolved #Afib: Continue metoprolol, Lovenox, Coumadin on hold #HTN #HLD - Aspirin, Atorvastatin, Lisinopril resumed. Will hold HCTZ gildardo in the setting of early hyponatremia. #Hyponatremia: Resolved #LELAND intolerant to CPAP; He says that he [facility], but cannot [facility] it. #b/l Nephrolothiasis #BPH w/ LUTs #Elevated PSA - Managed by Urology. - On Tamsulosin #Tobacco use d/o: He rolls his own cigarrettes and buys his tobacco by the pound. Has smoked for ~60yrs. - Nicotine patch ordered #Anxiety/Depression: He smokes 1/2g to 1g of Marijuana daily for this. #Constipation: Monitor #Treated for Hep C in 2004 and 2005 DVT ppx: SCD. Plan for today pt/ot Attestations 2 Medical Necessity Statement*: patient requires hospitalization for epidural washout, now with bilateral lower extremity weakness Diagnoses Acute cystitis with hematuria N30.01 BPH loc w urin obs/LUTS N40.1 Paroxysmal atrial fibrillation I48.0 Atrial fibrillation type: paroxysmal Primary hypertension I10 Hypertension type: primary hypertension Elevated PSA R97.20 Acute back pain less than 4 weeks duration M54.9 Spinal cord injury
[2023-07-28] VITALS (8 sets, daily range): BP systolic 146–186; BP diastolic 84–98; PULSE 54–167; RESP 16–20; TEMP 36.6–36.8; O2SAT 91–94; BMI 36.6
[2023-07-28] MEDS: diazePAM 5 mg Tablet PO (01:14)
[2023-07-28] MEDS: dexamethasone 10 mg/mL INJ IVP ×4 (02:38→21:15)
[2023-07-28] MEDS: HYDROcodone-acetaminophen 10-325 mg Tablet PO ×5 (04:15→21:21)
[2023-07-28 04:21] LABS: Basophils % 0.1 %; Hematocrit 33.3 % (37-53); Lymphocytes # 0.3 10^3/uL (0.8-4.8); Lymphocytes % 2.3 %; Mean Corpuscular HGB Conc 32.7 g/dL (30-55); Mean Corpuscular Hemoglobin 29.1 pg (27-33); Mean Corpuscular Volume 88.8 fl (82-101); Mean Platelet Volume 10.8 fL (7.4-10.4); Monocytes # 0.6 10^3/uL (0.2-0.9); Monocytes % 4.7 %; Neutrophils % 90.7 %; Nucleated Red Blood Cells % 0 %; Platelet Count 264 10^3/cmm (157-399); Red Blood Count 3.75 10^6/uL (3.85-5.65); Red Cell Distribution Width 14.2 % (12.1-15.1); White Blood Count 12.88 10^3/uL (3.29-11.43)
[2023-07-28 04:32] LABS: INR 1.15 (0.8-1.2)
[2023-07-28 04:39] LABS: Alanine Aminotransferase 50 U/L (0-41); Albumin Level 3.4 g/dL (3.5-5.2); Alkaline Phosphatase 57 U/L (40-130); Anion Gap 13.3 (5-19); Aspartate Amino Transferase 43 U/L (0-40); Blood Urea Nitrogen 28 mg/dL (8-23); Carbon Dioxide 25 mmol/L (22-29); Chloride 104 mmol/L (98-107); Creatinine Clr Calc Pharmacy 94.2086; Globulin 2.3 g/dL (1.3-4.6); Glucose 136 mg/dL (65-115); Magnesium 2.2 mg/dL (1.7-2.3); Osmolality Calculated 294 mOsm/kg (285-295); Potassium 4.3 mmol/L (3.5-5.1); Sodium 138 mmol/L (136-145); Total Bilirubin 0.6 mg/dL (0.15-1.2); Total Protein 5.7 g/dL (6.6-8.7)
--- NOTE | 2023-07-28 07:15 | P.PN_ITS ---
Subjective 2 Subjective: Patient is continue to have weakness in his legs. Pain somewhat controlled is having back pain feels like it is more from the bed. At this point he is scheduled to have rehab placement next week in [place] Vitals/I&O/Wt Last Vital Signs Temp 98.2 F 07/28/23 04:00 Pulse 54 L 07/28/23 06:00 Resp 20 H 07/28/23 04:00 BP 186/93 07/28/23 05:16 Pulse Ox 92 07/28/23 04:00 O2 Del Method Room Air 07/28/23 04:00 O2 Flow Rate 2 07/27/23 00:00 07/27/23 07/28/23 07/28/23 22:59 06:59 14:59 Intake Total 1290 / 1870 Output Total 1115 / 1115 465 / 1580 Balance 175 / 755 -465 / 290 Weight last 48 hrs Weight 233 lb 14.4 oz Weight 234 lb 9 oz Physical Exam 2 Narrative: Continued weakness in the legs. Urinary Catheter Management: Romero: Cath Placed During This Visit: yes Reason for Continuing Indwelling Catheter: Other Urinary Catheter Date of Insertion: 07/25/23 Urinary Catheter Time of Insertion: 02:30 Data 07/28/23 04:07 07/28/23 04:07 A&P Assessment and plan (1) Status post lumbar laminectomy: Patient is postop day #2 evacuation of hematoma Continue work with therapy Discharge planning to rehab next week Attestations 2 Medical Necessity Statement*: Rehab placement Coding Level of Care Code Acute Code for Chg Fwd Diagnoses Status post lumbar laminectomy Z98.890
[2023-07-28] MEDS: tamsulosin 0.4 mg Capsule 0.400000000000000022 MG PO (08:00)
[2023-07-28] MEDS: atorvastatin 40 mg Tablet 20 MG PO (08:00)
[2023-07-28] MEDS: lisinopril 20 mg Tablet 40 MG PO (08:00)
[2023-07-28] MEDS: pantoprazole DR 40 mg Tablet PO (08:01)
[2023-07-28] MEDS: metoprolol tartrate 25 mg Tablet PO ×2 (08:01→18:26)
[2023-07-28] MEDS: cefTRIAXone 1,000 MG in sodium chloride 0.9% (plus) 50 ML 100 MG IV (08:01)
[2023-07-28] MEDS: docusate sodium 100 mg Capsule PO ×2 (08:01→18:26)
[2023-07-28] MEDS: nicotine 14 mg Patch 1 PATCH TRANSDERMA (08:02)
--- NOTE | 2023-07-28 08:15 | ECG_ITS ---
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 Measurements Intervals [place] Rate: 165 P: 0 UT: 0 QRS: 40 QRSD: 91 T: 41 QT: 278 QTc: 462 Interpretive Statements ATRIAL FLUTTER/TACHYCARDIA WITH RAPID VENTRICULAR RESPONSE ST DEVIATION AND MODERATE T-WAVE ABNORMALITY, CONSIDER INFERIOR ISCHEMIA [-0.1+ mV T-WAVE IN II/aVF] CRITICAL TEST RESULT Compared to ECG 07/23/2023 11:19:29 T-wave abnormality now present Possible ischemia now present Sinus rhythm no longer present Electronically Signed On 07-28-2023 17:56:31 SALESPERSON TERRAZZO TILES by German Rucker M.D. [email or web address]/store/OM/[id number]
--- NOTE | 2023-07-28 08:25 | PC.NURSE ---
patient noted to have HR of 167 on residential monitor, order obtained for EKG which showed a fib with rvr, rate of 165. Patient stated he felt anxious but had no chest pain or shortness of breath. Dr. Coker notified who gave verbal order for 5mg IV metoprolol. Patient's heart rate then dropped to 110, still in a fib. Dr. Coker notified who gave orders to hold the dose of IV metoprolol and send to CSU for amiodorone drip. traffic sign erection supervisor notified.
--- NOTE | 2023-07-28 09:38 | PC.CHAP ---
Pastoral Care Encounter/Spiritual Assessment Type of Contact [] Declined journalists and other writers visit [] Patient/Family/Request visit [] Outpatient visit [] Follow-up visit [] Physician referral [] Code/Alert [x] Routine visit [] Staff referral [] Actively dying [] Patient sleeping [x] Family support [] [] Out of room [] Palliative care [] [] Receiving care in room [] Pre-surgical visit [] Trauma [] Long length of stay [] ICU visit [] Other: Relational/Emotional Strength [x] Patient feels connected with others/family/visitors/staff [] Distress [] Loneliness/isolation [] Abandonment Spirituality of Patient [x] Person of Dasia [] Attends Jain of their Dasia [x] Believes in Prayer [] Reads Bible or Mandaeism materials [] There are Spiritual issues to be addressed Concrete Handler Interventions [x] Prayer [x] Active listening [] Non-anxious presence [x] Spiritual/emotional support [] Crisis/trauma care [] Spiritual counseling [] Bereavement support [] Provided bereavement packet [] Provided Bible/devotional materials [] Provided toy/stuffed animal, coloring book to patient or family member [] Provided Communion [] Anointing/[place] [] Salvation [x] Completed spiritual assessment [] Other: Impact on Illness or Injury [] Angry [] Fearful [] Anxious [] Often cries [] Exhaustion [] Unable to work [] Unable to attend druze [] Unable to walk/stand [] Unable to read [] Unable to drive [] Unable to eat/drink [] Unable to sleep [] Unable to be with family [] Patient intubated [] Other: Summary Time spent with patient 10 min
--- NOTE | 2023-07-28 10:38 | P.PN_ITS ---
Subjective 2 Subjective: Patient was seen this morning, he tells me he has more mobility in his feet, more mobility in his knees, and his thighs, no fevers, chills, no cough, he had episodes of A-fib with RVR this morning, was given 25 mg p.o. metoprolol, heart rates are now in the 110s, A-fib, will continue to monitor on telemetry, no chest pain, no palpitations, on examination, bilateral lower extremities particularly feet has good inversion eversion, good dorsal plantarflexion no loss of sensation, bilateral knees, does have mild mobility compared to yesterday, but continues to have significant weakness in extension, flexion at the knee joint, does have more hip mobility but still diminished Vitals/I&O/Wt Last Vital Signs Temp 98.2 F 07/28/23 08:00 Pulse 167 H 07/28/23 08:00 Resp 17 07/28/23 08:00 BP 171/98 07/28/23 08:00 Pulse Ox 93 07/28/23 08:00 O2 Del Method Room Air 07/28/23 08:00 O2 Flow Rate 2 07/27/23 00:00 07/27/23 07/28/23 07/28/23 22:59 06:59 14:59 Intake Total 1290 / 1870 50 / 50 Output Total 1115 / 1115 465 / 1580 Balance 175 / 755 -465 / 290 50 / 50 Weight last 48 hrs Weight 106.095 kg Weight 106.396 kg Physical Exam 2 Const: COMMON NORMALS: no acute distress and patient oriented x3 Resp: COMMON NORMALS: normal respiratory effort, No retractions, No use of accessory muscles and clear to auscultation bilaterally AUSCULTATION: clear to auscultation bilaterally Cardio: COMMON NORMALS: S1 normal heart sound present and S2 normal heart sound present RATE: tachycardic RHYTHM: abnormal rhythm HEART SOUNDS: S 1 normal heart sound present and S2 normal heart sound present GI: COMMON NORMALS: Normal to inspection, nondistended, normoactive bowel sounds present and non-tender Extremity: COMMON NORMALS: no pedal edema Neuro: COMMON NORMALS: patient oriented x3 Psych: COMMON NORMALS: mental status grossly normal Urinary Catheter Management: Romero: Cath Placed During This Visit: yes Reason for Continuing Indwelling Catheter: Other Urinary Catheter Date of Insertion: 07/25/23 Urinary Catheter Time of Insertion: 02:30 Data 07/28/23 04:07 07/28/23 04:07 A&P Assessment and plan (1) Acute cystitis with hematuria: (2) BPH loc w urin obs/LUTS: (3) Atrial fibrillation: Qualifiers: Atrial fibrillation type: paroxysmal Qualified Code(s): I48.0 - Paroxysmal atrial fibrillation (4) HTN (hypertension): Qualifiers: Hypertension type: primary hypertension Qualified Code(s): I10 - Essential (primary) hypertension (5) Elevated PSA: (6) Acute back pain less than 4 weeks duration: (7) Spinal cord injury: Plan Ge Dudley is a 73yo man w/ Paroxysmal Afib, HTN, HLD, b/l Nephrolithiasis, BPH w/ LUTs, LELAND intolerant to CPAP, L-spine decompression on 07/17/2023, who presented to the ED on 07/22/2023 via EMS for intractable back pain, b/l LE weakness. In the ED, his vital signs were significant for tachypnea up to 22. He had a wbc of 9.55, hyponatremia of 134, and a UA positive for ketones, and concerning for UTI. CT of L-spine was done that showed a heterogeneous hypodensity along the surgical tracts w/ bubbles of air, but no discrete drainable fluid collection appreciated. An MRI of the L-spine w/ & w/o contrast was recommended if there was any concern for an epidural collection. A CXR was done that showed no acute cardiopulmonary disease. He was given 1L NS bolus, Morphine 4mg IVP x 2 doses, Norflex 60mg IM x 1, Dexamethasone 10mg IM x 1, Toradol 30mg IVP x 1, and Ceftriaxone 1g x 1. He was admitted to the Orthopedic Surgery Service, and the Hospitalist service was consulted for medical management. #R. sided chest pain: Resolved -No chest pain over the last 24 hours -Prior EKGs no acute ST-T wave changes -Troponin 21 - CONCLUSIONS Technically limited quality echocardiogram because of poor ultrasonic windows. LV systolic function is normal with EF of 55 to 60%. Mild mitral regurgitation. Trace tricuspid regurgitation Mildly dilated ascending aorta with diameter of 3.5 cm. No comparison studies are available. -Continue statin, metoprolol -Could not tolerate stress testing, cannot lie flat, no chest pain, will hold off for now given bilateral lower extremity diminished strength need for stat MRI and surgical evaluation -Hold aspirin -Hold therapeutic Lovenox #Back pain due to L3-L4, L4-L5 facectomy, Now with diminished bilateral extremity strength, secondary to epidural hematoma, status post evaluation #B/l LE weakness and physical deconditioning. Lumbar CT -IMPRESSION: 1. Recent postsurgical changes are noted in the lumbar spine with new laminectomy defects on the RIGHT at L3 and L4 with postoperative changes. 2. Foci of air and postoperative changes in the soft tissues. 3. MRI would be more helpful to evaluate for cord compression or the epidural space. -As patient has had diminished bilateral extremity strength, stat MRI ordered, warfarin, Lovenox on hold - Per Ortho, - PT/OT ordred. lumbar mri IMPRESSION: 1. Multilevel severe impingement of the thecal sac due to RIGHT eccentric and dorsal epidural blood products worse at L1-L2 L2-L3 and L3-L4. Moderate impingement on the thecal sac at L4-5. 2. Additional blood products extend cephalad to the T11 and T12 levels with mild central canal narrowing. -s/p epidural hematoma washout POD 2 -Concerns for spinal cord injury Plan -hold all anticoagulant therapy -Currently taking Decadron, monitor blood sugar -pt/ot -will need placement to rehab #Acute Cystitis: F/u UCx. resolved #Afib: -With RVR Increase metoprolol to 25 twice daily, hold Lovenox, Coumadin on hold #HTN #HLD - Aspirin, Atorvastatin, Lisinopril resumed. Will hold HCTZ gildardo in the setting of early hyponatremia. #Hyponatremia: Resolved #LELAND intolerant to CPAP; He says that he has a [facility], but cannot tolerate it. #b/l Nephrolothiasis #BPH w/ LUTs #Elevated PSA - Managed by Urology. - On Tamsulosin #Tobacco use d/o: He rolls his own cigarrettes and buys his tobacco by the pound. Has smoked for ~60yrs. - Nicotine patch ordered #Anxiety/Depression: He smokes 1/2g to 1g of Marijuana daily for this. #Constipation: Monitor #Treated for Hep C in 2004 and 2005 DVT ppx: SCD. Plan for today pt/ot Attestations 2 Medical Necessity Statement*: Patient requires hospitalization for A-fib with RVR, bilateral extremity weakness acute epidural hematoma s/p evacuation, concern for spinal cord injury Diagnoses Acute cystitis with hematuria N30.01 BPH loc w urin obs/LUTS N40.1 Paroxysmal atrial fibrillation I48.0 Atrial fibrillation type: paroxysmal Primary hypertension I10 Hypertension type: primary hypertension Elevated PSA R97.20 Acute back pain less than 4 weeks duration M54.9 Spinal cord injury
--- NOTE | 2023-07-28 10:38 | PC.SOCIAL ---
IMM Update pg 2 of IMM updated and reviewed w/ patient. Copy provided and copy dated, initialed and placed in chart.
[2023-07-28 11:38] LABS: Glucose Point of Care 150 mg/dL (70-110)
--- NOTE | 2023-07-28 13:54 | PC.OT ---
Attempted OT treatment with pt declining tx; will attempt at later time.
[2023-07-28 17:09] LABS: Glucose Point of Care 140 mg/dL (70-110)
[2023-07-28 22:07] LABS: Glucose Point of Care 144 mg/dL (70-110)
[2023-07-29] VITALS (9 sets, daily range): BP systolic 145–164; BP diastolic 68–90; PULSE 46–75; RESP 17–19; TEMP 36.4–36.8; O2SAT 93–95
[2023-07-29] MEDS: dexamethasone 10 mg/mL INJ IVP ×3 (02:39→14:24)
[2023-07-29] MEDS: HYDROcodone-acetaminophen 10-325 mg Tablet PO ×3 (03:23→21:49)
[2023-07-29 05:07] LABS: Basophils % 0.1 %; Hematocrit 32.6 % (37-53); Lymphocytes # 0.3 10^3/uL (0.8-4.8); Lymphocytes % 2.3 %; Mean Corpuscular HGB Conc 32.5 g/dL (30-55); Mean Corpuscular Hemoglobin 28.5 pg (27-33); Mean Corpuscular Volume 87.6 fl (82-101); Mean Platelet Volume 10.7 fL (7.4-10.4); Monocytes # 0.7 10^3/uL (0.2-0.9); Monocytes % 4.6 %; Neutrophils # 12.77 10^3/uL (1.8-7.7); Neutrophils % 90.8 %; Nucleated Red Blood Cells % 0 %; Platelet Count 271 10^3/cmm (157-399); Red Blood Count 3.72 10^6/uL (3.85-5.65); Red Cell Distribution Width 14.2 % (12.1-15.1); White Blood Count 14.07 10^3/uL (3.29-11.43)
[2023-07-29] MEDS: metoprolol tartrate 25 mg Tablet PO ×2 (05:15→17:22)
[2023-07-29 05:21] LABS: INR 1.16 (0.8-1.2)
[2023-07-29 05:34] LABS: Alanine Aminotransferase 39 U/L (0-41); Albumin Level 3.2 g/dL (3.5-5.2); Alkaline Phosphatase 52 U/L (40-130); Anion Gap 13.2 (5-19); Aspartate Amino Transferase 26 U/L (0-40); Blood Urea Nitrogen 26 mg/dL (8-23); Calcium 8.1 mg/dL (8.5-10.5); Carbon Dioxide 27 mmol/L (22-29); Chloride 103 mmol/L (98-107); Creatinine Clr Calc Pharmacy 93.2988; Globulin 2.1 g/dL (1.3-4.6); Glucose 124 mg/dL (65-115); Osmolality Calculated 294 mOsm/kg (285-295); Phosphorus 2.8 mg/dL (2.5-4.5); Potassium 4.2 mmol/L (3.5-5.1); Sodium 139 mmol/L (136-145); Total Bilirubin 0.7 mg/dL (0.15-1.2); Total Protein 5.3 g/dL (6.6-8.7)
[2023-07-29 05:37] LABS: NT Pro B Type Natriuretic Pept 491 pg/mL (0-125)
[2023-07-29 06:50] LABS: Glucose Point of Care 137 mg/dL (70-110)
[2023-07-29 08:40] LABS: Glucose Point of Care 154 mg/dL (70-110)
[2023-07-29] MEDS: nicotine 14 mg Patch 1 PATCH TRANSDERMA (08:53)
[2023-07-29] MEDS: atorvastatin 40 mg Tablet 20 MG PO (08:53)
[2023-07-29] MEDS: docusate sodium 100 mg Capsule PO ×2 (08:53→17:22)
[2023-07-29] MEDS: lisinopril 20 mg Tablet 40 MG PO (08:54)
[2023-07-29] MEDS: tamsulosin 0.4 mg Capsule 0.400000000000000022 MG PO (08:54)
[2023-07-29] MEDS: pantoprazole DR 40 mg Tablet PO (08:54)
[2023-07-29] MEDS: haloperidol inj 5 mg/mL INJ 1 mL 1 MG IM (08:54)
--- NOTE | 2023-07-29 09:44 | XRR_ITS ---
PROCEDURE INFORMATION: Exam: XR Chest Exam date and time: 07/29/2023 10:02 AM Age: 73 years old Clinical indication: Other: AMS TECHNIQUE: Imaging protocol: Radiologic exam of the chest. Views: 1 view. COMPARISON: CR (CHEST, ) 07/22/2023 8:56 AM FINDINGS: Lungs: Similar calcified granuloma in the left mid lung zone. No focal consolidation. Pleural spaces: Unremarkable. No pleural effusion. No pneumothorax. Heart/Mediastinum: Unremarkable. No cardiomegaly. Vasculature: Unfolding of the thoracic aorta. Bones/joints: Similar low-grade chondral lesion in the proximal right humeral diaphysis. Chondrocalcinosis of the right glenohumeral joint. XR/XR chest 1V portable [id number] IMPRESSION: No acute cardiopulmonary process.
--- NOTE | 2023-07-29 09:44 | USR_ITS ---
PROCEDURE INFORMATION: Exam: US Duplex Lower Extremity Veins, Bilateral Exam date and time: 07/29/2023 4:33 PM Age: 73 years old Clinical indication: Other: AMS TECHNIQUE: Imaging protocol: Real-time duplex ultrasound of the bilateral extremities with 2-D swift scale, color Doppler flow and spectral waveform analysis including responses to compression and other maneuvers (when performed) with image documentation. Complete exam focused on the lower extremity veins. COMPARISON: MR knee RT wo con* [id number] 12/06/2022 2:28 PM FINDINGS: Right deep veins: Unremarkable. The common femoral, femoral, proximal profunda femoral and popliteal veins are patent without thrombus. Normal Doppler waveforms. Normal compressibility and/or augmentation response. Left deep veins: Unremarkable. The common femoral, femoral, proximal profunda femoral and popliteal veins are patent without thrombus. Normal Doppler waveforms. Normal compressibility and/or augmentation response. Superficial veins: Greater saphenous veins at the saphenofemoral junctions are patent bilaterally without thrombus. Soft tissues: Unremarkable. US/CV venous duplex [facility] [id number] IMPRESSION: No evidence of deep vein thrombosis.
--- NOTE | 2023-07-29 09:44 | CTR_ITS ---
PROCEDURE INFORMATION: Exam: CT Head Without Contrast Exam date and time: 07/29/2023 9:57 AM Age: 73 years old Clinical indication: Altered mental status/memory loss; Additional info: AMS TECHNIQUE: Imaging protocol: Computed tomography of the head without contrast. Radiation optimization: All CT scans at this facility use at least one of these dose optimization techniques: automated exposure control; mA and/or kV adjustment per patient size (includes targeted exams where dose is matched to clinical indication); or iterative reconstruction. COMPARISON: MR cervical spin wo con* [id number] 06/14/2023 10:45 AM RADIATION DOSE METRICS: Total DLP (mGy-cm): 2312.67 FINDINGS: Brain: There are periventricular white matter and bilateral centrum semiovale hypodensities consistent with mild form of chronic ischemic small vessel disease. No recent infarct, bleed or intracranial mass. There is mild diffuse parenchymal volume loss. Cerebral ventricles: No ventriculomegaly. Pituitary gland and sella: Partially empty sella. Paranasal sinuses: Visualized sinuses are unremarkable. No fluid levels. Mastoid air cells: Visualized mastoid air cells are well aerated. Bones/joints: Unremarkable. No acute fracture. Soft tissues: Unremarkable. CT/CT head wo con* [id number] IMPRESSION: No large territorial infarct or intracranial bleed.
--- NOTE | 2023-07-29 10:28 | ECG_ITS ---
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 Measurements Intervals [place] Rate: 49 P: 24 FL: 142 QRS: 38 QRSD: 78 T: 41 QT: 461 QTc: 417 Interpretive Statements SINUS BRADYCARDIA Compared to ECG 07/28/2023 08:15:32 Atrial flutter no longer present T-wave abnormality no longer present Possible ischemia no longer present Electronically Signed On 07-31-2023 9:32:55 MOLTEN IRON POURER by Eh Campos M.D. [email or web address] [id number]
[2023-07-29 11:07] LABS: Troponin(5th) Baseline 17 ng/L (0-15)
--- NOTE | 2023-07-29 11:44 | ECG_ITS ---
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 Measurements Intervals [place] Rate: 67 P: 11 VA: 132 QRS: 18 QRSD: 78 T: 18 QT: 401 QTc: 426 Interpretive Statements SINUS RHYTHM Compared to ECG 07/29/2023 10:28:58 Sinus bradycardia no longer present Electronically Signed On 07-31-2023 9:40:06 LAND DEVELOPMENT PROJECT MANAGER by Eh Campos M.D. [email or web address] Systemsgulf coast veterans health care systemPromip Agro Biotecnologiaregency hospital [facility]led[facility].LaFourchette/store/NU/[id number] f
[2023-07-29 11:46] LABS: Glucose Point of Care 113 mg/dL (70-110)
[2023-07-29 14:04] LABS: Troponin 5 2HR 17.49 ng/L (0-15); Troponin 5 2HR Delta 0.49 ABS# (0-10)
[2023-07-29 14:11] LABS: Urine Appearance Clear (CLEAR); Urine Color Yellow (Yellow); pH Urine 7 (5-7)
[2023-07-29 14:12] LABS: Add Urine Culture? Yes; Add Urine Microscopic? YES; Bacteria Urine TRACE /hpf; Bilirubin Urine Neg (Negative); Blood Urine 3+ (Negative); Glucose Urine UA Norm (Normal); Ketones Urine Negative (Negative); Leukocyte Esterase Urine Negative (Negative); Nitrate Urine Negative (Negative); Protein Urine Neg (Negative); RBC Urine 15-25 /hpf (0-2); Squamous Epithelial Cell Urine RARE /hpf (0-5); Urobilinogen Urine 1 mg/dL (Negative); WBC Urine 0-4 /hpf (0-5)
--- NOTE | 2023-07-29 14:35 | P.PN_ITS ---
Subjective 2 Subjective: - Patient was examined this morning ? Early this morning, patient was out of bed, he fell to his knees, and then to sacrum, no head contact, no head trauma no loss of consciousness, ? 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 We discussed doing UA, blood cultures, chest x-ray, venous ultrasound to monitor his mentation closely ? He is agreeable ? He did have episodes of A-fib with RVR yesterday but currently his blood pressures and heart rates are well-controlled, will do CT of the head, discussed holding anticoagulation, discussed risk and benefits, he voiced understanding, all questions answered, agreed to proceed, -He denies any abdominal pain, no chest pain, no shortness of breath, advised him to stay in bed, to only get up out of bed, with instruction of nursing staff and PT OT Vitals/I&O/Wt Last Vital Signs Temp 98.0 F 07/29/23 07:18 Pulse 67 07/29/23 14:00 Resp 17 07/29/23 11:37 BP 157/90 07/29/23 11:37 Pulse Ox 93 07/29/23 11:37 O2 Del Method Room Air 07/29/23 11:37 O2 Flow Rate 2 07/27/23 00:00 07/28/23 07/29/23 07/29/23 22:59 06:59 14:59 Intake Total 240 / 290 240 / 240 Output Total 1500 / 1500 300 / 1800 Balance -1260 / -1210 -300 / -1510 240 / 240 Weight last 48 hrs Weight 104.411 kg Weight 106.095 kg Physical Exam 2 Const: COMMON NORMALS: no acute distress Resp: COMMON NORMALS: normal respiratory effort, No retractions, No use of accessory muscles and clear to auscultation bilaterally AUSCULTATION: clear to auscultation bilaterally Cardio: COMMON NORMALS: regular rate, regular rhythm, S1 normal heart sound present and S2 normal heart sound present RATE: regular rate RHYTHM: r egular rhythm HEART SOUNDS: S1 normal heart sound present and S2 normal heart sound present GI: COMMON NORMALS: Normal to inspection, nondistended, normoactive bowel sounds present and non-tender Extremity: COMMON NORMALS: no pedal edema Neuro: COMMON NORMALS: CN's II-XII intact bilaterally and moves all extremities Psych: COMMON NORMALS: mental status grossly normal Urinary Catheter Management: Romero: Cath Placed During This Visit: yes Reason for Continuing Indwelling Catheter: Acute Urinary Retention or Obstruction Urinary Catheter Date of Insertion: 07/25/23 Urinary Catheter Time of Insertion: 02:30 Data 07/29/23 04:02 07/29/23 04:02 Micro: Microbiology 07/29/23 10:24 Blood Culture - Preliminary Blood SPECIMEN COLLECTED 07/29/23 10:18 Blood Culture - Preliminary Blood SPECIMEN COLLECTED A&P Assessment and plan (1) Acute cystitis with hematuria: (2) BPH loc w urin obs/LUTS: (3) Atrial fibrillation: Qualifiers: Atrial fibrillation type: paroxysmal Qualified Code(s): I48.0 - Paroxysmal atrial fibrillation (4) HTN (hypertension): Qualifiers: Hypertension type: primary hypertension Qualified Code(s): I10 - Essential (primary) hypertension (5) Elevated PSA: (6) Acute back pain less than 4 weeks duration: (7) Spinal cord injury: (8) Acute encephalopathy: Plan Ge Dudley is a 73yo man w/ Paroxysmal Afib, HTN, HLD, b/l Nephrolithiasis, BPH w/ LUTs, LELAND intolerant to CPAP, L-spine decompression on 07/17/2023, who presented to the ED on 07/22/2023 via EMS for intractable back pain, b/l LE weakness. In the ED, his vital signs were significant for tachypnea up to 22. He had a wbc of 9.55, hyponatremia of 134, and a UA positive for ketones, and concerning for UTI. CT of L-spine was done that showed a heterogeneous hypodensity along the surgical tracts w/ bubbles of air, but no discrete drainable fluid collection appreciated. An MRI of the L-spine w/ & w/o contrast was recommended if there was any concern for an epidural collection. A CXR was done that showed no acute cardiopulmonary disease. He was given 1L NS bolus, Morphine 4mg IVP x 2 doses, Norflex 60mg IM x 1, Dexamethasone 10mg IM x 1, Toradol 30mg IVP x 1, and Ceftriaxone 1g x 1. He was admitted to the Orthopedic Surgery Service, and the Hospitalist service was consulted for medical management. # Acute encephalopathy -Currently alert and oriented x 2, follows commands -No focal neurologic deficits, no slurring of words -Motion in bilateral lower extremities improving after spinal cord injury -Neurochecks, night stroke scale, aspiration precautions -CT head ? UA, chest x-ray, venous ultrasound -Possible steroid encephalopathy? Decrease to prednisone 60 mg daily #R. sided chest pain: Resolved -No chest pain over the last 24 hours -Prior EKGs no acute ST-T wave changes -Troponin 21 - CONCLUSIONS Technically limited quality echocardiogram because of poor ultrasonic windows. LV systolic function is normal with EF of 55 to 60%. Mild mitral regurgitation. Trace tricuspid regurgitation Mildly dilated ascending aorta with diameter of 3.5 cm. No comparison studies are available. -Continue statin, metoprolol -Could not tolerate stress testing, cannot lie flat, no chest pain, will hold off for now given bilateral lower extremity diminished strength need for stat MRI and surgical evaluation -Hold aspirin -Hold therapeutic Lovenox #Back pain due to L3-L4, L4-L5 facectomy, Now with diminished bilateral extremity strength, secondary to epidural hematoma, status post evaluation #B/l LE weakness and physical deconditioning. Lumbar CT -IMPRESSION: 1. Recent postsurgical changes are noted in the lumbar spine with new laminectomy defects on the RIGHT at L3 and L4 with postoperative changes. 2. Foci of air and postoperative changes in the soft tissues. 3. MRI would be more helpful to evaluate for cord compression or the epidural space. -As patient has had diminished bilateral extremity strength, stat MRI ordered, warfarin, Lovenox on hold - Per Ortho, - PT/OT ordred. lumbar mri IMPRESSION: 1. Multilevel severe impingement of the thecal sac due to RIGHT eccentric and dorsal epidural blood products worse at L1-L2 L2-L3 and L3-L4. Moderate impingement on the thecal sac at L4-5. 2. Additional blood products extend cephalad to the T11 and T12 levels with mild central canal narrowing. -s/p epidural hematoma washout POD 2 -Concerns for spinal cord injury Plan -hold all anticoagulant therapy -Currently taking Decadron, de-escalated to prednisone monitor blood sugar -pt/ot -will need placement to rehab #Acute Cystitis: F/u UCx. Completed treatment, resolved #Afib: -With RVR Increase metoprolol to 25 twice daily, hold Lovenox, Coumadin on hold #HTN #HLD - Aspirin, Atorvastatin, Lisinopril resumed. Will hold HCTZ gildardo in the setting of early hyponatremia. #Hyponatremia: Resolved #LELAND intolerant to CPAP; He says that he has a nice [facility], but cannot tolerate it. #b/l Nephrolothiasis #BPH w/ LUTs #Elevated PSA - Managed by Urology. - On Tamsulosin #Tobacco use d/o: He rolls his own cigarrettes and buys his tobacco by the pound. Has smoked for ~60yrs. - Nicotine patch ordered #Anxiety/Depression: He smokes 1/2g to 1g of Marijuana daily for this. #Constipation: Monitor #Treated for Hep C in 2004 and 2005 DVT ppx: SCD. Plan for today pt/ot Patient requires hospitalization, for spinal cord injury, requiring physical therapy, now with acute encephalopathy requiring further workup including venous ultrasound, CT of the head, chest x-ray, neurochecks, aspiration precautions, inpatient monitoring Attestations 2 Medical Necessity Statement*: Patient requires hospitalization for acute encephalopathy, spinal cord injury, epidural hematoma evacuation, A-fib Diagnoses Acute cystitis with hematuria N30.01 BPH loc w urin obs/LUTS N40.1 Paroxysmal atrial fibrillation I48.0 Atrial fibrillation type: paroxysmal Primary hypertension I10 Hypertension type: primary hypertension Elevated PSA R97.20 Acute back pain less than 4 weeks duration M54.9 Spinal cord injury Acute encephalopathy G93.40
--- NOTE | 2023-07-29 15:42 | P.PN_ITS ---
Subjective 2 Subjective: Patient had a fall not complain any pain. At this point his legs still continue to be weak. Patient had try to get out of bed and fell to his knees. Had an episode of arrhythmia supposed to go to the rehab facility today but they wanted to get vitals before and after physical therapy. Vitals/I&O/Wt Last Vital Signs Temp 98.0 F 07/29/23 07:18 Pulse 67 07/29/23 14:00 Resp 17 07/29/23 11:37 BP 157/90 07/29/23 11:37 Pulse Ox 93 07/29/23 11:37 O2 Del Method Room Air 07/29/23 11:37 O2 Flow Rate 2 07/27/23 00:00 07/29/23 07/29/23 07/29/23 06:59 14:59 22:59 Intake Total 240 / 240 Output Total 300 / 1800 650 / 650 Balance -300 / -1510 240 / 240 -650 / -410 Weight last 48 hrs Weight 230 lb 3 oz Weight 233 lb 14.4 oz Physical Exam 2 Narrative: Continue weakness and lower extremities Urinary Catheter Management: Romero: Cath Placed During This Visit: yes Reason for Continuing Indwelling Catheter: Acute Urinary Retention or Obstruction Urinary Catheter Date of Insertion: 07/25/23 Urinary Catheter Time of Insertion: 02:30 Data 07/29/23 04:02 07/29/23 04:02 Micro: Microbiology 07/29/23 10:24 Blood Culture - Preliminary Blood SPECIMEN COLLECTED 07/29/23 10:18 Blood Culture - Preliminary Blood SPECIMEN COLLECTED A&P Assessment and plan (1) Status post lumbar laminectomy: Patient is status post open decompression. Awaiting rehab placement Attestations 2 Medical Necessity Statement*: Awaiting rehab placement Coding Level of Care Code Acute Code for Chg Fwd Diagnoses Status post lumbar laminectomy Z98.890
--- NOTE | 2023-07-29 15:44 | ECG_ITS ---
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 Measurements Intervals [place] Rate: 67 P: 48 UT: 128 QRS: 48 QRSD: 77 T: 39 QT: 397 QTc: 420 Interpretive Statements SINUS RHYTHM MINIMAL ST DEPRESSION [0.025+ mV ST DEPRESSION] Compared to ECG 07/29/2023 13:50:00 ST (T wave) deviation now present Electronically Signed On 07-31-2023 9:38:58 LOGGER by Eh Campos M.D. [email or web address]
[2023-07-29 17:12] LABS: Glucose Point of Care 168 mg/dL (70-110)
[2023-07-29 21:53] LABS: Glucose Point of Care 144 mg/dL (70-110)
[2023-07-30] VITALS: BP 181/87; PULSE 61; RESP 19; TEMP 36.4; O2SAT 94
[2023-07-30] MEDS: HYDROcodone-acetaminophen 10-325 mg Tablet PO ×2 (02:56→09:27)
[2023-07-30 04:00] VITALS: BP 132/77; PULSE 57; RESP 17; TEMP 36.4; O2SAT 96
[2023-07-30 04:26] LABS: INR 1.05 (0.8-1.2)
[2023-07-30 04:28] LABS: Basophils % 0.2 %; Hematocrit 34.8 % (37-53); Lymphocytes # 0.8 10^3/uL (0.8-4.8); Lymphocytes % 4.1 %; Mean Corpuscular HGB Conc 32.5 g/dL (30-55); Mean Corpuscular Hemoglobin 28.7 pg (27-33); Mean Corpuscular Volume 88.3 fl (82-101); Monocytes # 1.4 10^3/uL (0.2-0.9); Monocytes % 7.4 %; Neutrophils # 16.04 10^3/uL (1.8-7.7); Neutrophils % 85.3 %; Nucleated Red Blood Cells % 0 %; Platelet Count 321 10^3/cmm (157-399); Red Blood Count 3.94 10^6/uL (3.85-5.65); Red Cell Distribution Width 14.4 % (12.1-15.1)
[2023-07-30 04:40] LABS: Alanine Aminotransferase 36 U/L (0-41); Albumin Level 3.3 g/dL (3.5-5.2); Alkaline Phosphatase 54 U/L (40-130); Anion Gap 12.1 (5-19); Aspartate Amino Transferase 23 U/L (0-40); Blood Urea Nitrogen 28 mg/dL (8-23); Calcium 8.2 mg/dL (8.5-10.5); Carbon Dioxide 28 mmol/L (22-29); Chloride 101 mmol/L (98-107); Creatinine Clr Calc Pharmacy 93.2988; Globulin 2.3 g/dL (1.3-4.6); Glucose 125 mg/dL (65-115); Magnesium 2.2 mg/dL (1.7-2.3); Osmolality Calculated 291 mOsm/kg (285-295); Phosphorus 2.9 mg/dL (2.5-4.5); Potassium 4.1 mmol/L (3.5-5.1); Sodium 137 mmol/L (136-145); Total Bilirubin 0.7 mg/dL (0.15-1.2); Total Protein 5.6 g/dL (6.6-8.7)
[2023-07-30 04:47] LABS: NT Pro B Type Natriuretic Pept 342 pg/mL (0-125)
[2023-07-30] MEDS: metoprolol tartrate 25 mg Tablet PO (05:08)
[2023-07-30 06:55] LABS: Glucose Point of Care 102 mg/dL (70-110)
[2023-07-30] MEDS: atorvastatin 40 mg Tablet 20 MG PO (08:32)
[2023-07-30] MEDS: predniSONE 20 mg Tablet 60 MG PO (08:32)
[2023-07-30] MEDS: pantoprazole DR 40 mg Tablet PO (08:32)
[2023-07-30] MEDS: docusate sodium 100 mg Capsule PO (08:32)
[2023-07-30] MEDS: tamsulosin 0.4 mg Capsule 0.400000000000000022 MG PO (08:32)
[2023-07-30] MEDS: lisinopril 20 mg Tablet 40 MG PO (08:33)
[2023-07-30] MEDS: aspirin 81 mg EC Tablet PO (08:33)
[2023-07-30] MEDS: nicotine 14 mg Patch 1 PATCH TRANSDERMA (08:33)
[2023-07-30 09:06] VITALS: BP 159/86; PULSE 55; RESP 20; TEMP 36.3; O2SAT 96
[2023-07-30 10:19] LABS: C Reactive Protein 10.2 mg/L (0.0-4.9)
[2023-07-30 10:26] LABS: Procalcitonin 0.05 ng/mL (0-0.5)
--- NOTE | 2023-07-30 10:56 | P.DS_ITS ---
Discharge Providers Date of Admission: 07/22/23 09:25 Date of Discharge: July 30, 2023 Attending Provider at Admission: Ad Posey DO Attending Provider at Discharge: Ad Posey DO Diagnoses at Discharge Discharge Diagnosis (1) Status post lumbar laminectomy: Status: Acute Reason for Visit Reason for Visit: BACK PAIN Hospital Course Hospital Course Patient initially had a two-level minimally wrist decompression had a epidural hematoma underwent open laminectomy from L1-L5 to decompress the hematoma. Patient had weakness afterwards Physical Exam Narrative: Continued weakness of lower extremities patient is more alert today Urinary Catheter Management: Romero: Cath Placed During This Visit: yes Reason for Continuing Indwelling Catheter: Acute Urinary Retention or Obstruction Urinary Catheter Date of Insertion: 07/25/23 Urinary Catheter Time of Insertion: 02:30 Discharge Data Studies Completed and Pending Completed Studies During Hospitalization Category Date Time Status CT head wo con* [id number] Routine Cat Scan 07/29/23 09:[address] lumbar spine w con [id number] Stat Cat Scan 07/22/23 07:[address] lumbar spine wo con* [id number] Stat Cat Scan 07/24/23 17:35 Completed XR chest 1V portable [id number] Routine Exams 07/29/23 09:44 Completed XR chest 1V portable [id number] Stat Exams 07/22/23 08:30 Completed MR lumbar spine wo con* 45226 Stat MRI 07/25/23 09:30 [place] [id number] Routine Ultrasound 07/29/23 09:44 [place] [address] Stat Ultrasound 07/24/23 12:40 Completed CV. echo complete* [id number] Routine Ultrasound 07/24/23 08:06 Completed US abdomen limited 60121 Routine Ultrasound 07/23/23 11:11 Completed Pending at discharge Category Date Time Status C-arm Fluoroscopy [id number] Routine Exams 07/26/23 16:18 Taken Sestamibi Stress Test Request Routine Exams 07/25/23 06:00 Stop Req Blood Culture Stat Lab 07/29/23 10:24 Results Complete Blood Count w/Auto AM LABS Lab 07/31/23 04:00 Ordered Comprehensive Metabolic Panel AM LABS Lab 07/31/23 04:00 Ordered Magnesium AM LABS Lab 07/31/23 04:00 Ordered NT Pro B Type Natriuretic Pept QAM Lab 07/31/23 06:00 Ordered Phosphorus AM LABS Lab 07/31/23 04:00 Ordered Prothrombin Time INR AM LABS Lab 07/31/23 04:00 Ordered Urine Culture Routine Lab 07/29/23 13:37 Results Radiology Impressions Abdomen Ultrasound 07/23/23 11:11 IMPRESSION: 1. Hepatomegaly, hepatic steatosis 2. Multiple benign right renal cyst 3. Cholecystectomy 4. Otherwise negative examination. 5. Pancreas is not visible due to bowel gas Chest X-Ray 07/29/23 09:44 IMPRESSION: No acute cardiopulmonary process. Head CT 07/29/23 09:44 IMPRESSION: No large territorial infarct or intracranial bleed. Venous Duplex 07/29/23 09:44 IMPRESSION: No evidence of deep vein thrombosis. Laboratory Results WBC 18.80 10^3/uL (3.29-11.43) H 07/30/23 02:57 RBC 3.94 10^6/uL (3.85-5.65) 07/30/23 02:57 Hgb 11.30 g/dL (11.27-16.99) 07/30/23 02:57 Hct 34.8 % (37-53) L 07/30/23 02:57 MCV 88.3 fl (82-101) 07/30/23 02:57 MCH 28.7 pg (27-33) 07/30/23 02:57 MCHC 32.5 g/dL (30-55) 07/30/23 02:57 RDW 14.4 % (12.1-15.1) 07/30/23 02:57 Plt Count 321 10^3/cmm (157-399) 07/30/23 02:57 MPV 11.0 fL (7.4-10.4) H 07/30/23 02:57 Neut % (Auto) 85.3 % 07/30/23 02:57 Lymph % (Auto) 4.1 % 07/30/23 02:57 [place] % (Auto) 7.4 % 07/30/23 02:57 Eos % (Auto) 0.0 % 07/30/23 02:57 Baso % (Auto) 0.2 % 07/30/23 02:57 Neut # (Auto) 16.04 10^3/uL (1.8-7.7) H 07/30/23 02:57 Lymph # (Auto) 0.8 10^3/uL (0.8-4.8) 07/30/23 02:57 [place] # (Auto) 1.4 10^3/uL (0.2-0.9) H 07/30/23 02:57 Eos # (Auto) 0.0 10^3/uL (0.0-0.8) 07/30/23 02:57 Baso # (Auto) 0.0 10^3/uL (0.0-0.1) 07/30/23 02:57 Nucleated RBC % (auto) 0 % 07/30/23 02:57 Nucleated RBCs # 0.0 /100WBC 07/30/23 02:57 PT 14.00 SECONDS (12.1-14.9) 07/30/23 02:57 INR 1.05 (0.8-1.2) 07/30/23 02:57 APTT 47.5 SECONDS (23.9-36.7) H 07/25/23 12:14 Sodium 137 mmol/L (136-145) 07/30/23 02:57 Potassium 4.1 mmol/L (3.5-5.1) 07/30/23 02:57 Chloride 101 mmol/L (98-107) 07/30/23 02:57 Carbon Dioxide 28 mmol/L (22-29) 07/30/23 02:57 Anion Gap 12.1 (5-19) 07/30/23 02:57 BUN 28 mg/dL (8-23) H 07/30/23 02:57 Creatinine 0.7 mg/dL (0.7-1.2) 07/30/23 02:57 GFR Calculation Not Reportable 07/30/23 02:57 Glucose 125 mg/dL (65-115) H 07/30/23 02:57 POC Glucose 102 mg/dL (70-110) 07/30/23 06:46 Calculated Osmolality 291 mOsm/kg (285-295) 07/30/23 02:57 Calcium 8.2 mg/dL (8.5-10.5) L 07/30/23 02:57 Phosphorus 2.9 mg/dL (2.5-4.5) 07/30/23 02:57 Magnesium 2.2 mg/dL (1.7-2.3) 07/30/23 02:57 Total Bilirubin 0.7 mg/dL (0.15-1.2) 07/30/23 02:57 AST 23 U/L (0-40) 07/30/23 02:57 ALT 36 U/L (0-41) 07/30/23 02:57 Alkaline Phosphatase 54 U/L (40-130) 07/30/23 02:57 Troponin T Baseline 17 ng/L (0-15) H 07/29/23 10:18 Troponin T 120 Minute 17.49 ng/L (0-15) H 07/29/23 12:59 Delta Troponin T 0.49 ABS# (0-10) 07/29/23 12:59 Troponin T Hi Sens 6Hr 16.00 ng/L (0-15) H 07/29/23 16:57 Troponin T Hi Sens 6Hr Delta -1.00 ng/L (0-12) L 07/29/23 16:57 C-Reactive Protein 10.2 mg/L (0.0-4.9) H 07/30/23 02:57 NT-Pro-B Natriuret Pep 342 pg/mL (0-125) H 07/30/23 02:57 Total Protein 5.6 g/dL (6.6-8.7) L 07/30/23 02:57 Albumin 3.3 g/dL (3.5-5.2) L 07/30/23 02:57 Globulin 2.3 g/dL (1.3-4.6) 07/30/23 02:57 Procalcitonin 0.05 ng/mL (0-0.5) 07/30/23 02:57 Urine Color Yellow (Yellow) 07/29/23 13:37 Urine Appearance Clear (CLEAR) 07/29/23 13:37 Urine pH 7 (5-7) 07/29/23 13:37 Ur Specific [place] 1.010 (1.005-1.030) 07/29/23 13:37 Urine Protein Neg (Negative) 07/29/23 13:37 Urine Glucose (UA) Norm (Normal) 07/29/23 13:37 Urine Ketones Negative (Negative) 07/29/23 13:37 Urine Blood 3+ (Negative) H 07/29/23 13:37 Urine Nitrate Negative (Negative) 07/29/23 13:37 Urine Bilirubin Neg (Negative) 07/29/23 13:37 Urine Urobilinogen 1 mg/dL (Negative) H 07/29/23 13:37 Ur Leukocyte Esterase Negative (Negative) 07/29/23 13:37 Urine RBC 15-25 /hpf (0-2) H 07/29/23 13:37 Urine WBC 0-4 /hpf (0-5) H 07/29/23 13:37 Ur Squamous Epith Cells Rare /hpf (0-5) 07/29/23 13:37 Amorphous Sediment Not Reportable 07/29/23 13:37 Urine Bacteria Trace /hpf (NONE) 07/29/23 13:37 Urine Mucus 1+ /hpf 07/22/23 07:21 Blood Type B Positive 07/26/23 08:30 Rho(D) Type Rh positive 07/26/23 08:30 Vitals Last Vital Signs Temp 97.4 F L 07/30/23 09:06 Pulse 55 L 07/30/23 09:06 Resp 20 H 07/30/23 09:06 BP 159/86 07/30/23 09:06 Pulse Ox 96 07/30/23 09:06 O2 Del Method Room Air 07/30/23 09:06 O2 Flow Rate 2 07/27/23 00:00 Discharge Plan Discharge Patient Disposition: Xfer SNF Condition: Stable Prescriptions: New hydrocodone-acetaminophen 10-325 mg tablet 1 tab PO Q4H PRN (Reason: pain) 7 Days Qty: 40 0RF Continued hydrochlorothiazide 25 mg tablet 12.5 mg PO DAILY lisinopril 40 mg tablet 40 mg PO DAILY metoprolol tartrate 25 mg tablet 12.5 mg PO BID MARIJUANA 1 g inhalation ONCE atorvastatin 10 mg tablet 10 mg PO DAILY tizanidine 2 mg capsule 2 mg PO Q8H PRN (Reason: Muscle Spasm) loperamide 2 mg capsule 2 mg PO Q6H PRN (Reason: Diarrhea) pantoprazole 20 mg tablet,delayed release (DR/EC) 20 mg PO DAILY tamsulosin 0.4 mg capsule 0.4 mg PO DAILY Held aspirin [Adult Aspirin Regimen] 81 mg tablet,delayed release (DR/EC) 81 mg PO DAILY Hold Instructions: Resume on 08/11/23. warfarin 5 mg tablet 8 mg PO DAILY Hold Instructions: Resume on 08/11/23. Rx Instructions: WITH 3 MG DAILY TO EQUAL 8 MG DAILY warfarin 3 mg tablet 3 mg PO DAILY Hold Instructions: Resume on 08/11/23. Rx Instructions: WITH 5 MG DAILY TO EQUAL 8 MG DAILY Discontinued hydrocodone-acetaminophen 5-325 mg tablet 1 - 2 tab PO .Q4-6H Qty: 40 0RF Discharge Orders: Discharge Order (Routine); Ordered 07/30/23 Ordered By: Ad Posey Referrals: [facility] [Outside] Discharge Diet: Advance as tolerated Discharge Activity: Limit activity as instructed Patient Instructions: Opioid Safety Activity Restrictions/Additional Instructions: Thank you for [facility] for your care! The following is a list of instructions, from your provider, to follow upon your discharge to ensure you have the optimal recovery from your recent injury orsurgery. Follow-up care is a klein part of your treatment and safety. Be sure to make and go to all appointments, and call your doctor if you are having problems. If you do not already have a follow-up appointment made, call Dr. Posey office in the next 1-3 days to make follow up appointment for 2 weeks at [phone]. It is also a good idea to know your test results and keep a list of the medicines you take. Medications will be prescribed for you at your provider's discretion. These medications are to be used as instructed; if they are taken more often that prescribed they will not be refilled early and in most cases will not be refilled at all. > When a refill is needed,you should contact judah weiss 2-3 business days before your prescription runs out. Medications will NOT be refilled by correctional officer providers after hours! > Many pain medications contain Tylenol (Acetaminophen). Do not consume more than 4,000 mg of Tylenol per day in total with any combination ofmedications. > Pain medications can cause constipation. Please use an over the counter stool softener as directed, while taking pain medications. Consulty our local pharmacist with questions or recommendations on stool softeners. If constipation persists, contact our office or your primary care provider. > While under our care,you are not to receive pain medications or other controlled substances from any other provider unless our office is notified and approves. Any attempts to do so will result in refusal to prescribe any further pain medications and possible dismissal from our practice. ? Your wound and/or dressing should remain clean and dry for 2 days after surgery. On postoperative day 2 (48 hours after your surgery) the dressing (if present) should be removed and it is okay to shower and get the incision wet. Pad dry afterwards. No further dressing should be required from that point on. Do not put any creams or ointments on theincision > It is normal for there to be a small amount of discharge (bloody or blood tinged) present from a surgical wound for the first 1-3days. > The wound should be examined twice a day for signs of infection. Mild redness or bruising is to be expected but indications that an infection maybe starting would include; An increase in redness, swelling, or discharge, a foul odor present around the incision, and/or a fever greater than 101 ?F ? Showering is permitted, however we ask that you do not take a bath, sit in a whirlpool / Jacuzzi, or go swimming for 1 month. For only the first 2 days after surgery, lt wilt be necessary for you to cover your wound/dressing with plastic and tape to keep it dry. ? Walking is essential for the healing process after surgery. We would like you to slowly advance your walking. This should be done on relatively flat clear ground (inside or out) or can be done on a treadmill. Re member this goal does not have to happen all at once, slowly increase your distance and duration. This can be broken into more more than one walk per day as tolerated. Patients who walk as directed after surgery rarely require Physical Therapy. In the unlikely event this issue arises your provider will direct hospital staff to make the appropriate arrangements. ? No lifting over 5 pounds {a gallon of milk) or bending/twisting until further notice. Each of these activities places an unnecessary amount of stress onto the body and can impede the delicate healing process. > Instead of bending at the waist, keep your back straight and bend at the knees. > Instead of twisting your torso, keep your back straight and turn your entire body with your feet. ? You may sleep in any position which makes you comfortable. Many patients find comfort sleeping in a reclining chair. It is not abnormal to have difficulty sleeping for the first several weeks following your surgery. We recommend trying Benadry! or Tylenol PM as directed to help with your sleeping difficulties. Both medications are over the counter and available withoutprescription. ? NO SMOKING!!! Smoking dramatically increases the probability of developing postoperative wound infections. ? Common complaints after lumbar and/or thoracic spine surgery include, but are not limited to: numbness and/or tingling in the legs, pain around the incision and surrounding tissues, muscle spasms, or stiffness of the middle to low back. Contact our office if these symptoms persist or if an acute change occurs. ? No driving for the first 3-5days, and not while taking narcotics until seen at your follow-up appointment and cleared. There are no restrictions for riding on short trips, however if you take a longer trip, arrangements should be made to make regular stops to get out of the vehicle and stretch . ? Swelling is an unfortunate event that will take place with any surgery and is the primary source of your postoperative discomfort. While walking and regular approved activities helps control inflammation, there are additional steps you can take to minimizeswelling. > Place ice over the surgical site and surrounding tissue for twenty minutes, followed by applying a low/medium heat (heating pad) for an additional twenty minutes every 1-2 hours as needed for painrelief. > You may use of over the counter anti-inflammatory medications (Ibuprofen, Motrin, Aleve, Advil, etc) as directed on the package label. These types of medicines wm significantly reduce the amount of discomfort you experience after surgery from swelling. It should be noted that if you have and allergy to any of these medications, or a history of ulcers or kidney disease you should consult you primary care provider prior to starting these medications. Discharge Attestations Time Spent in Discharge Care*: less than 30 min Quality Metrics Clinical Quality Measures [ No reported AMI, CVA or VTE this stay] Coding Level of Care Code Acute Code for Chg Fwd Diagnoses Status post lumbar laminectomy Z98.890
--- NOTE | 2023-07-30 11:42 | P.PN_ITS ---
Subjective 2 Subjective: Patient was seen this morning, we had extensive discussion about him going to senior living facility in [place], initially he was hesitant, but I spoke to him, spoke to his over the phone, he just tells me he does would be far from his , I discussed with him the option of going to [place] rehab versus [place], however after extensive discussion with patient and his , patient is agreeable to go to [place] for rehab, we discussed continuing PT OT extensive physical therapy, and we will discharge him on a prednisone taper in addition, I also had a discussion with him about anticoagulant therapy, for now I would not discharge him on aspirin for DVT prophylaxis Lovenox for DVT prophylaxis should be started in about a week, after my discussion with Dr. wright, I think it would be reasonable to wait about a week before starting Lovenox 40 mg once daily subcu for Lovenox for DVT prophylaxis, the decision when and if to resume full dose anticoagulation, and his Coumadin will be based on shared decision-making between him and his physician, and cardiology. I would wait at least a week before deciding to resume him back on Coumadin. We discussed the risk and benefits of holding anticoagulant therapy's including but not limited to risk of CVA, stroke, DVT, PE after discussing risk and benefits, he voiced understanding, all questions answered, shared decision making, agreeable with plan. This morning he is able to move more of his bilateral lower extremities, he has more mobility in his knees he is very happy about his progress. He does tell me that he started to do some pull-ups in bed using his side rails, he knows he should not be overdoing it but he is very motivated about walking and getting better. I advised him to slowly progress himself, and to not overdo it and to have appropriate rest, but he is progressing well advised him to follow all the instructions of the physicians and the physical therapist in [place], he is agreeable.He does want to meet his before leaving for [place]. We did discuss his increased leukocytosis likely the effect of steroids, his urine cultures have been unremarkable, UA within normal limits and blood cultures within normal limits, venous ultrasound negative for DVT chest x-ray within normal limits, he has been afebrile Vitals/I&O/Wt Last Vital Signs Temp 97.4 F L 07/30/23 09:06 Pulse 55 L 07/30/23 09:06 Resp 20 H 07/30/23 09:06 BP 159/86 07/30/23 09:06 Pulse Ox 96 07/30/23 09:06 O2 Del Method Room Air 07/30/23 09:06 O2 Flow Rate 2 07/27/23 00:00 07/29/23 07/30/23 07/30/23 22:59 06:59 14:59 Intake Total 240 / 480 840 / 840 Output Total 1190 / 1190 250 / 1440 40 / 40 Balance -950 / -710 -250 / -960 800 / 800 Weight last 48 hrs Weight 104.496 kg Weight 104.411 kg Physical Exam 2 Const: COMMON NORMALS: no acute distress and patient oriented x3 Resp: COMMON NORMALS: normal respiratory effort, No retractions, No use of accessory muscles and clear to auscultation bilaterally AUSCULTATION: clear to auscultation bilaterally Cardio: COMMON NORMALS: regular rate, regular rhythm, S1 normal heart sound present and S2 normal heart sound present RATE: regular rate RHYTHM: r egular rhythm HEART SOUNDS: S1 normal heart sound present and S2 normal heart sound present GI: COMMON NORMALS: Normal to inspection, nondistended, normoactive bowel sounds present and non-tender Extremity: COMMON NORMALS: no pedal edema NARRATIVE EXTREMITY EXAM: Increase movement bilateral feet, inversion, eversion, dorsiflexion, plantarflexion, bilaterally, increased extension and flexion at knee joint, bilaterally increase movement at the hip joints bilaterally Neuro: COMMON NORMALS: patient oriented x3 Psych: COMMON NORMALS: mental status grossly normal Urinary Catheter Management: Romero: Cath Placed During This Visit: yes Reason for Continuing Indwelling Catheter: Acute Urinary Retention or Obstruction Urinary Catheter Date of Insertion: 07/25/23 Urinary Catheter Time of Insertion: 02:30 Data 07/30/23 02:57 07/30/23 02:57 Micro: Microbiology 07/29/23 13:37 Urine Culture - Preliminary Urine,Clean Catch 07/29/23 10:24 Blood Culture - Preliminary Blood NEGATIVE TO DATE 07/29/23 10:18 Blood Culture - Preliminary Blood NEGATIVE TO DATE A&P Assessment and plan (1) Acute cystitis with hematuria: (2) BPH loc w urin obs/LUTS: (3) Atrial fibrillation: Qualifiers: Atrial fibrillation type: paroxysmal Qualified Code(s): I48.0 - Paroxysmal atrial fibrillation (4) HTN (hypertension): Qualifiers: Hypertension type: primary hypertension Qualified Code(s): I10 - Essential (primary) hypertension (5) Elevated PSA: (6) Acute back pain less than 4 weeks duration: (7) Spinal cord injury: (8) Acute encephalopathy: Mariana Dudley is a 73yo man w/ Paroxysmal Afib, HTN, HLD, b/l Nephrolithiasis, BPH w/ LUTs, LELAND intolerant to CPAP, L-spine decompression on 07/17/2023, who presented to the ED on 07/22/2023 via EMS for intractable back pain, b/l LE weakness. In the ED, his vital signs were significant for tachypnea up to 22. He had a wbc of 9.55, hyponatremia of 134, and a UA positive for ketones, and concerning for UTI. CT of L-spine was done that showed a heterogeneous hypodensity along the surgical tracts w/ bubbles of air, but no discrete drainable fluid collection appreciated. An MRI of the L-spine w/ & w/o contrast was recommended if there was any concern for an epidural collection. A CXR was done that showed no acute cardiopulmonary disease. He was given 1L NS bolus, Morphine 4mg IVP x 2 doses, Norflex 60mg IM x 1, Dexamethasone 10mg IM x 1, Toradol 30mg IVP x 1, and Ceftriaxone 1g x 1. He was admitted to the Orthopedic Surgery Service, and the Hospitalist service was consulted for medical management. # Acute encephalopathy -Currently alert and oriented x 2, follows commands -No focal neurologic deficits, no slurring of words -Motion in bilateral lower extremities improving after spinal cord injury -Neurochecks, night stroke scale, aspiration precautions -CT head with normal limits ? UA, chest x-ray, venous ultrasound within normal limits -Possible steroid encephalopathy? Decrease to prednisone 60 mg daily, slow taper, discharged to senior living facility #R. sided chest pain: Resolved -No chest pain over the last 24 hours -Prior EKGs no acute ST-T wave changes -Troponin 21 - CONCLUSIONS Technically limited quality echocardiogram because of poor ultrasonic windows. LV systolic function is normal with EF of 55 to 60%. Mild mitral regurgitation. Trace tricuspid regurgitation Mildly dilated ascending aorta with diameter of 3.5 cm. No comparison studies are available. -Continue statin, metoprolol -Could not tolerate stress testing, cannot lie flat, no chest pain, will hold off for now given bilateral lower extremity diminished strength need for stat MRI and surgical evaluation -Continue aspirin -Hold therapeutic Lovenox #Back pain due to L3-L4, L4-L5 facectomy, Now with diminished bilateral extremity strength, secondary to epidural hematoma, status post evaluation #B/l LE weakness and physical deconditioning. Lumbar CT -IMPRESSION: 1. Recent postsurgical changes are noted in the lumbar spine with new laminectomy defects on the RIGHT at L3 and L4 with postoperative changes. 2. Foci of air and postoperative changes in the soft tissues. 3. MRI would be more helpful to evaluate for cord compression or the epidural space. -As patient has had diminished bilateral extremity strength, stat MRI ordered, warfarin, Lovenox on hold - Per Ortho, - PT/OT ordred. lumbar mri IMPRESSION: 1. Multilevel severe impingement of the thecal sac due to RIGHT eccentric and dorsal epidural blood products worse at L1-L2 L2-L3 and L3-L4. Moderate impingement on the thecal sac at L4-5. 2. Additional blood products extend cephalad to the T11 and T12 levels with mild central canal narrowing. -s/p epidural hematoma washout POD 2 -Concerns for spinal cord injury Plan -hold all anticoagulant therapy -Currently taking Decadron, de-escalated to prednisone monitor blood sugar -pt/ot -will need placement to rehab, accepted, will transfer today #Acute Cystitis: F/u UCx. Completed treatment, resolved #Afib: -With RVR Increase metoprolol to 25 twice daily, hold Lovenox, Coumadin on hold #HTN #HLD - Aspirin, Atorvastatin, Lisinopril resumed. Will hold HCTZ gildardo in the setting of early hyponatremia. #Hyponatremia: Resolved #LELAND intolerant to CPAP; He says that he has a [facility], but cannot tolerate it. #b/l Nephrolothiasis #BPH w/ LUTs #Elevated PSA - Managed by Urology. - On Tamsulosin #Tobacco use d/o: He rolls his own cigarrettes and buys his tobacco by the pound. Has smoked for ~60yrs. - Nicotine patch ordered #Anxiety/Depression: He smokes 1/2g to 1g of Marijuana daily for this. #Constipation: Monitor #Treated for Hep C in 2004 and 2005 DVT ppx: SCD. Plan for today pt/ot Attestations 2 Medical Necessity Statement*: Plan to discharge to senior living facility today Diagnoses Acute cystitis with hematuria N30.01 BPH loc w urin obs/LUTS N40.1 Paroxysmal atrial fibrillation I48.0 Atrial fibrillation type: paroxysmal Primary hypertension I10 Hypertension type: primary hypertension Elevated PSA R97.20 Acute back pain less than 4 weeks duration M54.9 Spinal cord injury Acute encephalopathy G93.40
[2023-07-30 11:43] LABS: Glucose Point of Care 108 mg/dL (70-110)
[2023-07-30 12:00] VITALS: BP 158/83; PULSE 61; RESP 20; TEMP 36.7; O2SAT 94
== END 2023-07-30 12:45 | DRG 908 ==
LOC: ER 08:57 → MEDSURG 10:13
PROVIDERS: Family Medicine; Internal Medicine; Admitting Provider Orthopaedic Surgery; Emergency Provider Family Medicine; Visit Provider Orthopaedic Surgery
PROC: 009U0ZZ Drainage of Spinal Canal, Open Approach (ICD-10-PCS; CPT 63001; principal; 2023-07-26 13:50)
DX: G97.61 Postprocedural hematoma of a nervous system organ or structure following a nervous system procedure (principal); E87.1 Hypo-osmolality and hyponatremia; G93.40 Encephalopathy, unspecified; N30.01 Acute cystitis with hematuria; N40.1 Benign prostatic hyperplasia with lower urinary tract symptoms; N52.9 Male erectile dysfunction, unspecified; I10 Essential (primary) hypertension; G47.33 Obstructive sleep apnea (adult) (pediatric); F17.200 Nicotine dependence, unspecified, uncomplicated; I48.0 Paroxysmal atrial fibrillation; M10.9 Gout, unspecified; M62.838 Other muscle spasm; E78.5 Hyperlipidemia, unspecified; R00.0 Tachycardia, unspecified; W18.30XA Fall on same level, unspecified, initial encounter; Y92.230 Patient room in hospital as the place of occurrence of the external cause; K59.00 Constipation, unspecified; R07.9 Chest pain, unspecified; F32.A Depression, unspecified; F41.9 Anxiety disorder, unspecified; R97.20 Elevated prostate specific antigen [PSA]; Z86.19 Personal history of other infectious and parasitic diseases; Z79.82 Long term (current) use of aspirin; Z79.01 Long term (current) use of anticoagulants
CPT/HCPCS: 36415; 36416; 36430; 51702; 51798; 70450; 71045; 72100; 72131; 72132; 72148; 76000; 76705; 80053; 81001; 82962; 83735; 83880; 84100; 84145; 84484; 85018; 85025; 85610; 85730; 86140; 86900; 86927; 87040; 87086; 93005; 93306; 93970; 94640; 96365; 96367; 96372; 96375; 96376; 97110; 97116; 97161; 97162; 97165; 97530; 97535; 99285; J0690; J0696; J1100; J1630; J1650; J1790; J1885; J2270; J2360; J2371; J2405; J2704; J3010; J3370; J3430; J3490; J7030; J7120; J7512; P9017; Q0163; Q9967

== ENCOUNTER → 2023-09-21 08:00 | Outpatient (BNVA) | payer MEDICARE, BC, SELFPAY | PROVIDERS: PCP Nurse Practitioner; Visit Provider Orthopaedic Surgery | DX: Z98.890 Other specified postprocedural states (principal) | CPT/HCPCS: 99024 ==